=== PATIENT | male | born 1940 | race Caucasian/White ===

== ENCOUNTER 2020-09-18 13:18 | Emergency (ER) | payer MEDICARE, OTHER ==
[~2020-09-18] VITALS: Ht 180.3 cm; Wt 100.0 kg
[2020-09-18 13:23] VITALS: BP 150/82; TEMP 97.4
[2020-09-18] MEDS ORDERED: ZYLOPRIM 100MG100 MG PO (14:13)
[2020-09-18] MEDS ORDERED: COREG 3.123.125 MG/T PO (14:13)
[2020-09-18] MEDS ORDERED: TEMOVATE0.05% TP (14:14)
[2020-09-18] MEDS ORDERED: ATROVENT I0.2 MG/1 M IH (14:14)
[2020-09-18] MEDS ORDERED: ONE-A-DAY ESSE1 EACH PO (14:14)
[2020-09-18] MEDS ORDERED: MIRALAX PA17 GM/Dose PO (14:15)
[2020-09-18] MEDS ORDERED: PERCOCET 325 MG1 TAB PO (14:15)
[2020-09-18] MEDS ORDERED: ZOLOFT 50MG50 MG PO (14:16)
[2020-09-18] MEDS ORDERED: FLOMAX 0.40.4 MG/CAP PO (14:16)
[2020-09-18] MEDS ORDERED: DESYREL 100MG100 MG PO (14:16)
[2020-09-18] MEDS ORDERED: PRAVACHOL 40MG40 MG PO (14:16)
[2020-09-18] MEDS ORDERED: MASON NATURAL2000 IU PO (14:17)
[2020-09-18 14:29] LABS: BASO % 0.4 % (0.0-2.0); EOS # 0.2 (0.0-0.7); EOS % 2.7 % (0-4.0); GRAN # 4.4 (1.4-6.5); HEMOGLOBIN 11.5 g/dl (13.5-18.0); LYMPH # 0.4 (1.2-3.4); LYMPH % 7.6 % (20.0-51.0); MEAN CELL VOLUME 98 fl (80.0-100.0); MEAN CORPUSCULAR HEMOGLOBIN 31 pg (27.0-31.0); MEAN CORPUSCULAR HGB CONC 32 g/dl (33.0-37.0); MEAN PLATELET VOLUME 11.3 fl (7.4-10.4); MONO # 0.5 (0.1-0.6); MONO % 9.1 % (1.7-9.3); PLATELET COUNT 150 K/mm3 (130-400); RED BLOOD COUNT 3.72 M/mm3 (4.20-5.60)
[2020-09-18 14:38] LABS: HEMATOCRIT 36.5 % (42.0-52.0)
[2020-09-18] MEDS ORDERED: DOXYCYCLINE 10100 MG PO (14:54)
[2020-09-18 15:11] VITALS: PULSE 75
== END 2020-09-18 15:11 | disposition home or self-care (01) ==
LOC: COL.ER 13:18
PROVIDERS: Family Medicine
DX: L03.116 Cellulitis of left lower limb (principal); Z88.0 Allergy status to penicillin; Z88.1 Allergy status to other antibiotic agents; W20.8XXA Other cause of strike by thrown, projected or falling object, initial encounter

== ENCOUNTER 2020-10-12 15:31 | Inpatient (IN) | payer MEDICARE ==
[~2020-10-12] VITALS: Ht 180.3 cm; Wt 99.8 kg
[~2020-10-12 15:31] MED LIST: ATROVENT I0.2 MG/1 M IH; COREG 3.123.125 MG/T PO; DESYREL 100MG100 MG PO; DOXYCYCLINE 10100 MG PO; FLOMAX 0.40.4 MG/CAP PO; MASON NATURAL2000 IU PO; MIRALAX PA17 GM/Dose PO; ONE-A-DAY ESSE1 EACH PO; PERCOCET 325 MG1 TAB PO; PRAVACHOL 40MG40 MG PO; TEMOVATE0.05% TP; ZOLOFT 50MG50 MG PO; ZYLOPRIM 100MG100 MG PO
[2020-10-12 15:48] LABS: BASO % 0.6 % (0.0-2.0); EOS # 0.1 (0.0-0.7); EOS % 1.5 % (0-4.0); GRAN # 4.4 (1.4-6.5); GRAN % 79.7 % (42.2-75.2); HEMATOCRIT 37.7 % (42.0-52.0); HEMOGLOBIN 12.1 g/dl (13.5-18.0); LYMPH # 0.6 (1.2-3.4); LYMPH % 10.5 % (20.0-51.0); MEAN CELL VOLUME 96 fl (80.0-100.0); MEAN CORPUSCULAR HEMOGLOBIN 31 pg (27.0-31.0); MEAN CORPUSCULAR HGB CONC 32 g/dl (33.0-37.0); MEAN PLATELET VOLUME 12.2 fl (7.4-10.4); MONO # 0.4 (0.1-0.6); MONO % 7.3 % (1.7-9.3); PLATELET COUNT 143 K/mm3 (130-400); RED BLOOD COUNT 3.91 M/mm3 (4.20-5.60); REDCELL DISTRIBUTION WIDTH-CV 17.4 % (11.5-14.5)
[2020-10-12 15:58] LABS: ALBUMIN 3.8 gm/dL (3.5-5.0); BILIRUBIN,TOTAL 1.4 mg/dL (0.0-1.0); CALCIUM 9.5 mg/dL (8.4-10.2); CREATININE, serum 1.86 (0.66-1.25); MAGNESIUM 2.2 mg/dL (1.6-2.3); TOTAL PROTEIN 7.3 gm/dL (6.4-8.2)
[2020-10-12 16:05] LABS: POTASSIUM 2.5 mmol/L (3.4-5.0)
[2020-10-12 16:10] LABS: TROPONIN-I 0.051 ng/mL (0.000-0.035)
[2020-10-12] MEDS ORDERED: COUMADIN 5MG5 MG/TAB PO (16:24)
[2020-10-12] MEDS ORDERED: DEMADEX100 MG PO (17:25)
[2020-10-12 17:34] LABS: INR 2.9 (0.8-3.0); PROTHROMBIN TIME 32.6 SECONDS (9.7-12.8)
[2020-10-12 18:02] VITALS: BP 126/73; PULSE 69; TEMP 97.3
--- NOTE | 2020-10-12 20:00 | NUR ---
PATIENT IS A&O. VSS. DENIES ANY CHEST PAIN OR SOA. PATIENT INDEPENDENT IN ROOM. NOTED IRREGULAR, PACED HEART RATE IN THE 60-70'S ON TELE. PATIENT HAS HX OF A-FIB AND TAKES COUMADIN. NO C/O N/V. ADA DIET TOLERATED WELL. PATIENT EAT/DRINK/VOIDING SUFFICENT AMOUNTS. LEFT WRIST IV TO INT. HEAD TO TOE ASSESSMENT COMPLETE. PM MEDS GIVEN. NO OTHER NEEDS AT THIS TIME.
--- NOTE | 2020-10-12 21:17 | NUR ---
Warfarin Initial Dosing Pharmacy Note Ordering Provider: Espinoza Meza MD Indication: Atrial fibrillation GOAL IRN: 2-3 HOME REGIMEN: WARFARIN 5MG DAILY (LAST DOSE PER [facility] ON 10/11 @1930) LABS: HGB:12.1 INR: 2.9 ALBUMIN WNL NO NEW DDI, PT ON HOME REGIMENS Recommendation: WILL RESTART PT'S HOME DOSING OF 5MG DAILY, PT RECEIVED ONE TIME DOSE FOR TONIGHT (10/12), THEREFORE WILL ORDER TO START REGIMEN ON EVENING OF 10/13. wILL MONITOR INR FOR NEED TO ADJUST DOSING REGIMEN. THANK YOU FOR THIS DOSING CONSULT!
--- NOTE | 2020-10-12 23:00 | NUR ---
report received from CINTHYA Lincoln
[2020-10-12 23:30] VITALS: BP 139/81; PULSE 70; TEMP 97.7
--- NOTE | 2020-10-12 23:30 | NUR ---
appears to be dozing, entered room and he arouses easily, heart rate strong and regular, lungs CTA, abdomen soft and non distended, bowel sounds present in all 4 quads, peripheral pulses present in 4 extremities, skin wwarm and dry, denies needs
--- NOTE | 2020-10-13 01:10 | NUR ---
appears to be sleeping
--- NOTE | 2020-10-13 02:22 | NUR ---
continues to appear to sleep, arouses when entered room
--- NOTE | 2020-10-13 02:40 | NUR ---
awake and assisted up to bathroom and then back to bed, states he is been up independently also to bathroom
[2020-10-13 03:52] VITALS: BP 136/75; PULSE 70; TEMP 97.7
--- NOTE | 2020-10-13 04:01 | NUR ---
c/o back pain, medicated with percocet 5mg
--- NOTE | 2020-10-13 04:50 | NUR ---
is trying to sleep, gien potassium in OJ and he will take in a while
[2020-10-13 07:12] LABS: INR 2.9 (0.8-3.0); PROTHROMBIN TIME 32.5 SECONDS (9.7-12.8)
[2020-10-13 07:17] LABS: BASO % 0.4 % (0.0-2.0); EOS # 0.1 (0.0-0.7); EOS % 2.6 % (0-4.0); GRAN # 3.6 (1.4-6.5); GRAN % 77.7 % (42.2-75.2); HEMOGLOBIN 10.7 g/dl (13.5-18.0); LYMPH # 0.5 (1.2-3.4); LYMPH % 11.1 % (20.0-51.0); MEAN CELL VOLUME 99 fl (80.0-100.0); MEAN CORPUSCULAR HEMOGLOBIN 31 pg (27.0-31.0); MEAN CORPUSCULAR HGB CONC 32 g/dl (33.0-37.0); MEAN PLATELET VOLUME 12.5 fl (7.4-10.4); MONO # 0.4 (0.1-0.6); PLATELET COUNT 113 K/mm3 (130-400); RED BLOOD COUNT 3.41 M/mm3 (4.20-5.60); REDCELL DISTRIBUTION WIDTH-CV 17.5 % (11.5-14.5)
[2020-10-13 07:22] LABS: CALCIUM 8.7 mg/dL (8.4-10.2); CREATININE, serum 1.87 (0.66-1.25); MAGNESIUM 2.2 mg/dL (1.6-2.3)
[2020-10-13 07:27] LABS: POTASSIUM 2.7 mmol/L (3.4-5.0)
[2020-10-13 07:32] LABS: HEMATOCRIT 33.6 % (42.0-52.0)
[2020-10-13 08:58] VITALS: BP 142/82; PULSE 69; TEMP 97.4
--- NOTE | 2020-10-13 11:00 | NUR ---
UNABLE TO INTERROGATE PACER DUE TO ISO UPDATE REQUIRED FOR THE IPAD. IPAD IS CURRENTLY UPLOADING THE IOS.
[2020-10-13 11:18] VITALS: BP 143/82; PULSE 70; TEMP 98
--- NOTE | 2020-10-13 14:33 | NUR ---
Director Of Digital Platforms met with patient to discuss discharge planning. Patient lives in [place] with his , Arlene (ph#[phone]) and his sister, Atiya. Patient advised he and his , Arlene moved from [facility] about a month ago and have been living with Atiya until they can find their own place. Patient sees Dr. Sol at [facility] and obtains medications at [facility]. Patient states he did fall behind on his payments to his insurance so he has been working with [employer] on a repayment plan. Patient has a CPAP, nebulizer, cane, and walker at home. Patient reports independence with ADLS and plans to return home upon discharge. Patient does not have Advance Directives and was interested in completing DPOA-HC. SW assisted patient with DPOA-HC form and patient chose to designate his , Arlene and sister, Atiya. Patient verbalized understanding of DPOA-HC and provided signature. COREY and Jelly drying unit felting machine operator provided witness signatures. COREY provided original and copies to patient, then placed a copy in patient's chart. Patient requested SW not call Arlene at this time, as she has just laid down for a nap. Patient states he will call SW once patient is awake and can take a call. SW will continue to follow.
[2020-10-13 15:36] LABS: HEMOGLOBIN 11.1 g/dl (13.5-18.0); MEAN CELL VOLUME 97 fl (80.0-100.0); MEAN CORPUSCULAR HEMOGLOBIN 31 pg (27.0-31.0); MEAN CORPUSCULAR HGB CONC 32 g/dl (33.0-37.0); PLATELET COUNT 119 K/mm3 (130-400); REDCELL DISTRIBUTION WIDTH-CV 17.4 % (11.5-14.5)
--- NOTE | 2020-10-13 15:40 | NUR ---
This RN in contact with ingot caster regarding procedure on 10/14. Informed that pt taking Coumadin with last dose on evening of 10/12. INR noted 2.[address] Lowery notified by this RN. Orders to hold Coumadin dose on 10/13 and redraw PT/INR at 0500 on 10/14. Orders read back and verified with physician.
[2020-10-13 15:42] LABS: INR 2.7 (0.8-3.0); PROTHROMBIN TIME 30.3 SECONDS (9.7-12.8)
[2020-10-13 15:45] LABS: PARTIAL THROMBOPLASTIN TIME 37.9 SECONDS (26.0-37.0)
[2020-10-13 15:47] LABS: CREATININE, serum 1.86 (0.66-1.25)
[2020-10-13 15:50] LABS: HEMATOCRIT 34.9 % (42.0-52.0)
[2020-10-13 16:28] VITALS: BP 126/72; PULSE 70; TEMP 98
[2020-10-13 19:58] VITALS: BP 122/83; PULSE 77; TEMP 98.5
--- NOTE | 2020-10-13 20:00 | NUR ---
Pt. sitting up in bed at this time. Pt. is A&OX3, assessment complete. INT to lt. wrist patent. Pt. reports pain to back at a 6. SOPHY Davis notified. Pt. denies further needs, call light within reach.
[2020-10-14] VITALS: BP 121/90; PULSE 58; TEMP 99.2
[2020-10-14 04:00] VITALS: BP 128/75; PULSE 69; TEMP 98.2
[2020-10-14 06:00] LABS: BASO % 0.4 % (0.0-2.0); EOS # 0.1 (0.0-0.7); GRAN # 4.6 (1.4-6.5); GRAN % 82.2 % (42.2-75.2); HEMOGLOBIN 10.9 g/dl (13.5-18.0); LYMPH # 0.5 (1.2-3.4); LYMPH % 8.3 % (20.0-51.0); MEAN CELL VOLUME 98 fl (80.0-100.0); MEAN CORPUSCULAR HEMOGLOBIN 31 pg (27.0-31.0); MEAN CORPUSCULAR HGB CONC 32 g/dl (33.0-37.0); MEAN PLATELET VOLUME 12.9 fl (7.4-10.4); MONO # 0.4 (0.1-0.6); MONO % 6.9 % (1.7-9.3); PLATELET COUNT 116 K/mm3 (130-400); RED BLOOD COUNT 3.48 M/mm3 (4.20-5.60); REDCELL DISTRIBUTION WIDTH-CV 17.6 % (11.5-14.5)
[2020-10-14 06:01] LABS: HEMATOCRIT 34.2 % (42.0-52.0)
[2020-10-14 06:10] LABS: INR 2.3 (0.8-3.0); PROTHROMBIN TIME 25.9 SECONDS (9.7-12.8)
[2020-10-14 06:12] LABS: CALCIUM 8.7 mg/dL (8.4-10.2); CREATININE, serum 1.77 (0.66-1.25); POTASSIUM 3.1 mmol/L (3.4-5.0)
[2020-10-14 07:44] VITALS: BP 137/71; PULSE 72; TEMP 98.5
[2020-10-14 11:52] VITALS: BP 121/73; PULSE 70; TEMP 98
[2020-10-14 15:44] VITALS: BP 132/70; PULSE 70; TEMP 98.8
--- NOTE | 2020-10-14 16:13 | NUR ---
Nailing Machine Operator Automatic contacted patient's , Arlene to review discharge plan. On phone call, Arlene stated to SW that she was lost and could not find her way back home. [place] could only see other houses. Arlene did not know what road she was on. SW advised Arlene to stay put for now until someone could come get her. SW attempted to call patient's sister, Atiya twice and left a message. SW met with patient to advise his was lost and patient voiced concern for Arlene and stated she has done this before. 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 Patient at one point uses the phrase "mentally retarded" to describe , but then retracts this statement. Patient attempted to contact Arlene and Atiya with no sucess. Patient advised patient works at [employer]. SW contacted the [facility] [employer] and was advised patient is not at work today. COREY then met with patient again and discussed putting in a welfare check. Patient is apprehensive about this but is agreeable as he states "we have to do something". SW contacted [facility] [employer] and requested a welfare check. SW was advised they would go by the home, but could not do a general search for her vehicle. After this, SW was approached by KOSTAS Jaime who advised patient got a hold of his and she was now at home. COREY followed up with patient who states Arlene is now at home with Atiya and is safe. Patient reports Atiya just had her phone off. COREY contacted [facility] and cancelled welfare check. COREY also updated Auto Electrical Technician and [employer]. COREY will continue to follow.
[2020-10-14 20:02] VITALS: BP 139/78; PULSE 70; TEMP 99.3
--- NOTE | 2020-10-14 21:00 | NUR ---
Pt. sitting up at bedside. Pt. is A&OX3, assessment complete. Pt. c/o difficulty urinating. Pt. bladder scanned. Bladder scan report of >450. SOPHY Davis notified. New order for foly cath placement. 16Fr. garcía catheter placed. Pt. tolerated well. 10mls applied to baloon. Clear yellow urine noted. Pt. reports relief. Pt. has an INT to lt. wrist patent. Pt. reports back pain at a 5 on pain scale, gave pain meds per orders. Pt. denies further needs.
[2020-10-15] VITALS (16 sets, daily range): BP systolic 120–137; BP diastolic 66–87; PULSE 69–80; TEMP 97.9–98.9
[2020-10-15 06:17] LABS: BASO % 0.3 % (0.0-2.0); EOS # 0.1 (0.0-0.7); EOS % 1.1 % (0-4.0); GRAN % 81.2 % (42.2-75.2); HEMOGLOBIN 10.4 g/dl (13.5-18.0); LYMPH # 0.5 (1.2-3.4); LYMPH % 8.7 % (20.0-51.0); MEAN CELL VOLUME 99 fl (80.0-100.0); MEAN CORPUSCULAR HEMOGLOBIN 31 pg (27.0-31.0); MEAN CORPUSCULAR HGB CONC 31 g/dl (33.0-37.0); MEAN PLATELET VOLUME 12.6 fl (7.4-10.4); MONO # 0.5 (0.1-0.6); MONO % 8.4 % (1.7-9.3); PLATELET COUNT 114 K/mm3 (130-400); RED BLOOD COUNT 3.37 M/mm3 (4.20-5.60); REDCELL DISTRIBUTION WIDTH-CV 17.2 % (11.5-14.5)
[2020-10-15 06:20] LABS: HEMATOCRIT 33.4 % (42.0-52.0)
[2020-10-15 06:29] LABS: INR 1.6 (0.8-3.0); PROTHROMBIN TIME 17.8 SECONDS (9.7-12.8)
[2020-10-15 06:34] LABS: CALCIUM 8.6 mg/dL (8.4-10.2); CREATININE, serum 1.81 (0.66-1.25); POTASSIUM 3.4 mmol/L (3.4-5.0)
--- NOTE | 2020-10-15 09:31 | NUR ---
Patient alert and oriented, answers questions appropriately. See assessment. Heart tones strong and even, pulses palpable. No c/o vertigo/syncope. VS WNL. NPO for heart cath this morning. Refuses IV K+, states it "sanders too much". Hospitalist notified. No c/o at this time.
--- NOTE | 2020-10-15 12:35 | NUR ---
Patient returned from heart cath, assessment unchanged except right radial puncture site with TLR band in place. Radial pulses palpable bilaterally. No c/o at this time.
--- NOTE | 2020-10-15 16:08 | NUR ---
Lunch Wagon Operator contacted Atiya, patient's sister and left another voicemail.
--- NOTE | 2020-10-15 19:38 | NUR ---
Susan notified about patietn urine retention. Orders obtained. Patient straight cathed. Relief after. Kanwal aware of bladder scan orders
--- NOTE | 2020-10-15 20:49 | NUR ---
PT IN BED WITH HOB ELEVATED, DENIES PAIN AT THIS TIME. PT HAS SOB, O2 ON AT 3L/NC AND O2 AT 94% TO 97%. WILL CALL DOCTOR FOR BREATHING TX. PT HAS NO FURTHER NEEDS AT THIS TIME, CALL LIGHT WITHIN REACH.
--- NOTE | 2020-10-16 01:48 | NUR ---
NOTIFIED ALEXANDER BECKETT IN REFERENCE TO PT'S REQUEST FOR ALBUTERAL NEBULIZER AND 500 MG OF PO TYLENOL PRN FOR PAIN.
[2020-10-16 02:46] VITALS: BP 124/75; PULSE 71; TEMP 97.8
--- NOTE | 2020-10-16 04:07 | NUR ---
BLADDER SCAN EVERY 4 HOURS: PT HAS BEEN BLADDER SCANNED EVERY FOUR HOURS SINCE HE WAS STRAIGHT CATH. AT 2300 THE PT HAD 273 ML IN HIS BLADDER, AND AT 0300 PT HAD 335. PT HAS BEEN VOIDING BUT BLADDER IS NOT FULLY EMPTYING. PT IS CONCERNED AND WANTS TO SPEAK WITH HIS DOCTOR TO GET IT TAKEN CARE OF. PT IS NOT FEELING ANY DISCOMFORT AT THIS TIME FOR THE URINE RETENTION.
[2020-10-16 06:16] LABS: BASO % 0.4 % (0.0-2.0); EOS # 0.1 (0.0-0.7); EOS % 1.9 % (0-4.0); GRAN # 4.2 (1.4-6.5); HEMOGLOBIN 10.5 g/dl (13.5-18.0); LYMPH # 0.6 (1.2-3.4); LYMPH % 10.8 % (20.0-51.0); MEAN CELL VOLUME 99 fl (80.0-100.0); MEAN CORPUSCULAR HEMOGLOBIN 31 pg (27.0-31.0); MEAN CORPUSCULAR HGB CONC 31 g/dl (33.0-37.0); MEAN PLATELET VOLUME 12.9 fl (7.4-10.4); MONO # 0.4 (0.1-0.6); MONO % 7.5 % (1.7-9.3); PLATELET COUNT 116 K/mm3 (130-400); RED BLOOD COUNT 3.41 M/mm3 (4.20-5.60); REDCELL DISTRIBUTION WIDTH-CV 17.3 % (11.5-14.5)
[2020-10-16 06:21] LABS: HEMATOCRIT 33.8 % (42.0-52.0)
[2020-10-16 06:36] LABS: CALCIUM 8.5 mg/dL (8.4-10.2); CREATININE, serum 1.94 (0.66-1.25); POTASSIUM 3.8 mmol/L (3.4-5.0)
[2020-10-16 07:34] VITALS: BP 135/72; PULSE 70; TEMP 98.1
[2020-10-16] MEDS ORDERED: ELIQUIS 5MG PO (08:50)
[2020-10-16] MEDS ORDERED: ASPIRIN 81M81 MG/TA2 PO (08:51)
[2020-10-16] MEDS ORDERED: DEMADEX 20MG20 M1 PO (09:07)
[2020-10-16] MEDS ORDERED: IPRATROPIUM BROM3 M1 IH (09:09)
--- NOTE | 2020-10-16 09:59 | NUR ---
AM MEDICATIONS GIVEN. SHIFT ASSESSMENT COMPELTE. RIGHT RADIAL SITE CD&I WITH BANDAID. BLE DRESSED WITH JONNY WRAP DRESSINGS PER WOUND CARE THIS MORNING. PATIENT REPORTING SOME SOB. RT CALLED AND BREATHING TREATMENT REQUESTED. PATIENT GIVEN TYLENOL FOR BACK PAIN. CALL LIGHT IN REACH. PATIENT DENIES ANY OTHER NEEDS AT THIS TIME.
[2020-10-16] MEDS ORDERED: OXYGEN NASAL.CANN (10:57)
[2020-10-16 11:39] VITALS: BP 142/88; PULSE 71; TEMP 97.9
--- NOTE | 2020-10-16 13:02 | NUR ---
PATIENT DENIES PAIN AT THIS TIME. PATIENT CALLED OUT TO THE DESK STATING HE HAS A BLOODY NOSE. PATIENT LEFT NARE RINSED WITH SALINE FLUSH PER PATIENT REQUEST. WILL CONTINUE TO MONITOR.
--- NOTE | 2020-10-16 16:12 | NUR ---
DISCHARGE INSTRUCTIONS REVIEWED WITH PATIENT. QUESTIONS SOUGHT AND ANSWERED. PATIENTS LEFT WRIST INT DISCONTINUED PER PENDING DISCHARGE. TIP INTACT. PATIENT TOLERATED WELL. AWAITING PATIENTS RIDE FOR DISCHARGE.
--- NOTE | 2020-10-16 16:15 | NUR ---
Hand Plug Shaper attended clinical rounds with the team and patient to discharge home today. Patient to have exercise oximetry and will likely need home oxygen set up. Patient states he had an oxygen concentrator at one time, but it's not here with him. Patient is unsure of the location and advised they have had some trouble with the moving company they hired to move their belongings. Patient had exercise oximetry and he will require 2-3 liters at discharge. COREY met with patient and he wanted to get set up with [facility] as he thought that's the DME company his previous physician in [place] had sent orders for his CPAP supplies. COREY contacted [facility] and faxed referral for oxygen. Melanie at [facility] advised they did not have patient in system but could get him set up with oxygen today. COREY met with patient as RN was reviewing discharge information. Patient states [employer] delivered his oxygen supplies to his home and his sister, Atiya was there to get things set up. Patient states Atiya is on her way and has a tank of oxygen to get patient home on. Patient states he has a follow up appointment with his primary care physician next week and states that his also has an appointment next week with the same physician. No additional needs at this time.
[2020-10-17] MEDS ORDERED: IPRATROPIUM BROM3 M1 IH (15:18)
== END 2020-10-16 16:21 | disposition home or self-care (01) | DRG 287 ==
LOC: COL.ER 15:31 → SURG 17:12
PROVIDERS: Emergency Medicine; Hospitalist; Internal Medicine Cardiovascular Disease; Physician Assistant; ADMIT Internal Medicine
PROC: 4A023N7 Measurement of Cardiac Sampling and Pressure, Left Heart, Percutaneous Approach (ICD-10-PCS; principal; 2020-10-15)
PROC: B2111ZZ Fluoroscopy of Multiple Coronary Arteries using Low Osmolar Contrast (ICD-10-PCS; 2020-10-15)
DX: I11.0 Hypertensive heart disease with heart failure (principal); N17.9 Acute kidney failure, unspecified; E87.3 Alkalosis; J96.11 Chronic respiratory failure with hypoxia; I50.33 Acute on chronic diastolic (congestive) heart failure; N18.9 Chronic kidney disease, unspecified; N40.1 Benign prostatic hyperplasia with lower urinary tract symptoms; J44.9 Chronic obstructive pulmonary disease, unspecified; R33.8 Other retention of urine; E11.22 Type 2 diabetes mellitus with diabetic chronic kidney disease; I87.8 Other specified disorders of veins; D69.6 Thrombocytopenia, unspecified; I48.91 Unspecified atrial fibrillation; I08.0 Rheumatic disorders of both mitral and aortic valves; M10.9 Gout, unspecified; F32.9 Major depressive disorder, single episode, unspecified; E87.6 Hypokalemia; E78.5 Hyperlipidemia, unspecified; R79.89 Other specified abnormal findings of blood chemistry; Z95.0 Presence of cardiac pacemaker; Z79.891 Long term (current) use of opiate analgesic; Z79.01 Long term (current) use of anticoagulants; Z96.652 Presence of left artificial knee joint; Z87.891 Personal history of nicotine dependence; Z88.0 Allergy status to penicillin
CPT/HCPCS: 99222-AI; 99232-AI; 99239; J1644; J1815; J1940; J2704; J3480; Q9967

== ENCOUNTER 2020-10-31 10:09 | Inpatient (IN) | payer MEDICARE ==
[2020-10-31] VITALS (259 sets, daily range): BP systolic 99–109; BP diastolic 66–75; PULSE 70; TEMP 97.5–98.2; O2SAT 78–100
[~2020-10-31] VITALS: Ht 175.3 cm; Wt 93.8 kg
[~2020-10-31 10:09] MED LIST changes: +ASPIRIN 81M81 MG/TA2 PO; +COUMADIN 5MG5 MG/TAB PO; +DEMADEX 20MG20 M1 PO; +DEMADEX100 MG PO; +ELIQUIS 5MG PO; +IPRATROPIUM BROM3 M1 IH; +OXYGEN NASAL.CANN
[2020-10-31 10:44] LABS: ARTERIAL BLD GAS O2 SATURATION 94.3 % (92-100); ARTERIAL BLD GAS TCO2 CT 14.9; ARTERIAL BLOOD GAS BASE EXCESS -8.6 (-2-2); ARTERIAL BLOOD GAS HCO3 14.2 meq/L (22-26); ARTERIAL BLOOD GAS PO2 69.5 mmHg (80-100); ARTERIAL BLOOD GAS pH 7.41 (7.35-7.45)
[2020-10-31 10:45] LABS: ARTERIAL BLOOD GAS PCO2 22.9 mmHg (35-45)
[2020-10-31 11:20] LABS: HEMOGLOBIN 11.5 g/dl (13.5-18.0); MEAN CELL VOLUME 96 fl (80.0-100.0); MEAN CORPUSCULAR HEMOGLOBIN 30 pg (27.0-31.0); MEAN CORPUSCULAR HGB CONC 32 g/dl (33.0-37.0); MEAN PLATELET VOLUME 12.5 fl (7.4-10.4); PLATELET COUNT 207 K/mm3 (130-400); RED BLOOD COUNT 3.81 M/mm3 (4.20-5.60); REDCELL DISTRIBUTION WIDTH-CV 16.8 % (11.5-14.5)
[2020-10-31 11:23] LABS: HEMATOCRIT 36.5 % (42.0-52.0)
[2020-10-31 11:33] LABS: PROTHROMBIN TIME 73.6 SECONDS (9.7-12.8)
[2020-10-31 11:34] LABS: INR 6.5 (0.8-3.0)
[2020-10-31 11:40] LABS: CALCIUM 8.4 mg/dL (8.4-10.2); CREATININE, serum 4.69 (0.66-1.25); POTASSIUM 5.4 mmol/L (3.4-5.0); TOTAL PROTEIN 6.7 gm/dL (6.4-8.2)
[2020-10-31 12:23] LABS: TROPONIN-I 0.288 ng/mL (0.000-0.035)
[2020-10-31 13:11] LABS: BAND 6 % (0-10); NEUTROPHILS 87 % (42.0-75.2)
[2020-10-31 13:12] LABS: ANISOCYTOSIS 1+; PLATELET ESTIMATE NORMAL (NORMAL)
[2020-10-31 13:13] LABS: HYPOCHROMIA 2+; LYMPHOCYTE 5 % (20.0-51.0)
[2020-10-31 13:16] LABS: OVALOCYTES 1+
[2020-10-31 16:38] LABS: ACETAMINOPHEN < 10 ug/mL (10-30); SALICYLATE < 1.0 mg/dL
[2020-10-31 16:39] LABS: COLLECTION METHOD CLEAN CATCH
[2020-10-31 16:50] LABS: MUCOUS Present /lpf; PH 5 (5-8); SQUAMOUS EPITHELIAL None Seen /hpf; URINE APPEARANCE Cloudy; URINE BACTERIA Rare /hpf; URINE BILIRUBIN Negative (NEGATIVE); URINE BLOOD 3+ (NEGATIVE); URINE COLOR Amber; URINE GLUCOSE Negative (NEGATIVE); URINE KETONE Negative (NEGATIVE); URINE LEUKOCYTE ESTERASE Negative (NEGATIVE); URINE NITRATE Negative (NEGATIVE); URINE PROTEIN(semi-quant) 2+ (NEGATIVE); URINE RBC >50 /hpf; URINE UROBILINOGEN Negative (NEGATIVE)
[2020-10-31 17:09] LABS: PARTIAL THROMBOPLASTIN TIME 37.1 SECONDS (26.0-37.0)
--- NOTE | 2020-10-31 17:33 | NUR ---
Dr. Vicente and Dr. Herrera notified of troponin level of 1.030. no new orders at this time.
--- NOTE | 2020-10-31 19:10 | NUR ---
Dr. Herrera at [facility] to see patient. Requested NS be started at 100ml/hr due to concentrated urine and low output. Risks were discussed at this time as BNP is elevated and according to Dr. Herrera pt has cardiac valve issues.
--- NOTE | 2020-10-31 20:28 | NUR ---
MD Chester notified for CINTHYA Schwartz Troponin critical
--- NOTE | 2020-10-31 20:30 | NUR ---
Patient resting in bed with eyes shut when nurse entered room. Awakened to speech. Patient slighly drowsy with slighly mumbled speech, however, answers orientation questions correctly. Denies any pain at this time and states breathing is doing "better". VS stable at this time. Assisted with sd-care and other comfort measures. Call light left within reach; will continue to monitor.
[2020-10-31 23:39] LABS: COLLECTION METHOD CLEAN CATCH
[2020-10-31 23:58] LABS: MUCOUS Present /lpf; PH 5 (5-8); SQUAMOUS EPITHELIAL None Seen /hpf; URINE APPEARANCE Turbid; URINE BACTERIA None Seen /hpf; URINE BILIRUBIN Negative (NEGATIVE); URINE BLOOD 3+ (NEGATIVE); URINE COLOR Amber; URINE GLUCOSE Negative (NEGATIVE); URINE KETONE Negative (NEGATIVE); URINE LEUKOCYTE ESTERASE Negative (NEGATIVE); URINE NITRATE Negative (NEGATIVE); URINE PROTEIN(semi-quant) 2+ (NEGATIVE); URINE RBC >50 /hpf; URINE UROBILINOGEN Negative (NEGATIVE)
[2020-11-01] VITALS (792 sets, daily range): BP systolic 102–139; BP diastolic 67–88; PULSE 70; TEMP 97–97.7; O2SAT 74–100
[2020-11-01 00:24] LABS: TRICYCLIC ANTIDEPRESS URINE NEGATIVE
--- NOTE | 2020-11-01 02:41 | NUR ---
Patient's called for an update. notified of patient's current condition. All quesions and concerns addressed. Passcode provided to spouse.
[2020-11-01 03:25] LABS: URINE PROTEIN:CREAT RATIO 2.14 (0.00-0.14)
[2020-11-01 05:42] LABS: HEMOGLOBIN 10.7 g/dl (13.5-18.0); MEAN CELL VOLUME 95 fl (80.0-100.0); MEAN CORPUSCULAR HEMOGLOBIN 32 pg (27.0-31.0); MEAN CORPUSCULAR HGB CONC 33 g/dl (33.0-37.0); MEAN PLATELET VOLUME 12.9 fl (7.4-10.4); PLATELET COUNT 168 K/mm3 (130-400); RED BLOOD COUNT 3.38 M/mm3 (4.20-5.60); REDCELL DISTRIBUTION WIDTH-CV 16.5 % (11.5-14.5)
[2020-11-01 05:48] LABS: HEMATOCRIT 32.2 % (42.0-52.0); INR 3.8 (0.8-3.0); PROTHROMBIN TIME 42.7 SECONDS (9.7-12.8)
[2020-11-01 05:51] LABS: ALBUMIN 2.7 gm/dL (3.5-5.0); BILIRUBIN,TOTAL 0.9 mg/dL (0.0-1.0); CALCIUM 7.9 mg/dL (8.4-10.2); CREATININE, serum 4.77 (0.66-1.25); MAGNESIUM 2.4 mg/dL (1.6-2.3); PHOSPHOROUS 5.3 mg/dL (2.5-4.5); POTASSIUM 5.2 mmol/L (3.4-5.0); TOTAL PROTEIN 6.1 gm/dL (6.4-8.2)
[2020-11-01 06:06] LABS: TROPONIN-I 0.658 ng/mL (0.000-0.035)
[2020-11-01 06:11] LABS: ANISOCYTOSIS 1+; LYMPHOCYTE 14 % (20.0-51.0); NEUTROPHILS 84 % (42.0-75.2); PLATELET ESTIMATE NORMAL (NORMAL)
--- NOTE | 2020-11-01 06:16 | NUR ---
Notified nurse from [facility] of INR of 3.8 this am. Will continue to monitor at this time.
--- NOTE | 2020-11-01 07:14 | NUR ---
Report given to CINTHYA Landeros. Patient care transfered.
--- NOTE | 2020-11-01 09:45 | NUR ---
NOTIFIED RADIOLOGY OF ECHO ORDER PLACED BY DR. ROBERTSON.
--- NOTE | 2020-11-01 18:23 | NUR ---
SPOKE WITH PT'S SON JOZEF ON PHONE. UPDATED ON PATIENT CONDITION. PT STATES OKAY TO ADD TO CONTACT LIST.
--- NOTE | 2020-11-01 20:30 | NUR ---
Assessment complete; patient sleepy but alert and oriented. In no obvious distress at time. VS stable. Assisted with a bed bath and helped patient to contact his family members. All concerns and questions addressed at this time.
[2020-11-02] VITALS (743 sets, daily range): BP systolic 106–115; BP diastolic 65–71; PULSE 70; TEMP 97.3–98.4; O2SAT 76–100
--- NOTE | 2020-11-02 05:00 | NUR ---
Assisted with repositioning and sd-care with 2nd nurse present. While assisting with care patient stated that he wanted to "tell us something". Patient was upset and stated that he had been watching a lot of [place] news and that they are saying that medications for covid are being held from patient's and he was "tired of it". Wanted to make sure to have all his medications so that he could get better. Discussed wiht patient that this is a complicated disease and that he was receiving all the medically approved treatments. Patient was accepting of this statement. Allowed staff to finish cares. Also, reporting that his nostrils were sore from the Air-vo and requested to be switched to a "mask" if possible. Placed on 15L oxymask. Stayed at bedside for approximately 10 min to ensure that he tolerated oxymask. O2 maintaing 92-94%. Will continue to monitor.
[2020-11-02 05:56] LABS: HEMOGLOBIN 11.1 g/dl (13.5-18.0); MEAN CELL VOLUME 94 fl (80.0-100.0); MEAN CORPUSCULAR HEMOGLOBIN 30 pg (27.0-31.0); MEAN CORPUSCULAR HGB CONC 32 g/dl (33.0-37.0); MEAN PLATELET VOLUME 12.7 fl (7.4-10.4); PLATELET COUNT 205 K/mm3 (130-400); RED BLOOD COUNT 3.65 M/mm3 (4.20-5.60); REDCELL DISTRIBUTION WIDTH-CV 16.4 % (11.5-14.5)
[2020-11-02 06:08] LABS: ALBUMIN 2.8 gm/dL (3.5-5.0); BILIRUBIN,TOTAL 0.9 mg/dL (0.0-1.0); CALCIUM 8.2 mg/dL (8.4-10.2); CREATININE, serum 5.13 (0.66-1.25); INR 2.1 (0.8-3.0); MAGNESIUM 2.6 mg/dL (1.6-2.3); POTASSIUM 5.4 mmol/L (3.4-5.0); PROTHROMBIN TIME 23.1 SECONDS (9.7-12.8); TOTAL PROTEIN 6.3 gm/dL (6.4-8.2)
[2020-11-02 06:10] LABS: HEMATOCRIT 34.4 % (42.0-52.0)
[2020-11-02 08:08] LABS: ANISOCYTOSIS 1+; BAND 4 % (0-10); NEUTROPHILS 88 % (42.0-75.2); PLATELET ESTIMATE NORMAL (NORMAL)
[2020-11-02 08:09] LABS: LYMPHOCYTE 4 % (20.0-51.0)
[2020-11-02 08:10] LABS: HYPOCHROMIA 1+
--- NOTE | 2020-11-02 11:22 | NUR ---
Plan to find SNF placement for additonal care. SW made contact with Arlene Bartholomew /SINDY about patients care. reports that her spouse has been sick for a while and she can not take care of him at home. reports that he is residing locally with her and his sister/alt.DPCHATO Atiya De Oliveira . reports that his sister is in the home with Covid and tested positive. reports that she is getting test tomorrow. indicated that the patient will need additional care support. reports the patient uses a walker for mobility and has oxygen at home at 2 liters. Patient has pacemaker and is scheduled for open heart surgery. PCP is reported as Rosario Sol with the last appointment was Oct 20. did not indicated pharmacy and was not feeling well. reports that she is okay with placement locally or surrounding area at this time, she supports plan to support spouse. Action: SW sent referrals to [facility], [facility], [facility], and [facility]. Awaiting response. Will continue to support DC plan.
--- NOTE | 2020-11-02 19:30 | NUR ---
Received report from CINTHYA Landeros. All medications verified and all questions answered. Patient eating supper in room. On contact/droplet precautions d/t positive covid status. VS WNL. On airvo 60L at 60%. Will resume care at this time.
--- NOTE | 2020-11-02 19:37 | NUR ---
REPORT GIVEN TO CINTHYA PAYNE.
[2020-11-03] VITALS (682 sets, daily range): BP systolic 101–118; BP diastolic 70–81; PULSE 70–76; TEMP 97.2–97.4; O2SAT 84–99
[2020-11-03 09:14] LABS: HEMOGLOBIN 10.1 g/dl (13.5-18.0); MEAN CELL VOLUME 93 fl (80.0-100.0); MEAN CORPUSCULAR HEMOGLOBIN 31 pg (27.0-31.0); MEAN CORPUSCULAR HGB CONC 33 g/dl (33.0-37.0); MEAN PLATELET VOLUME 12.6 fl (7.4-10.4); PLATELET COUNT 183 K/mm3 (130-400); REDCELL DISTRIBUTION WIDTH-CV 16.3 % (11.5-14.5)
[2020-11-03 09:18] LABS: HEMATOCRIT 30.7 % (42.0-52.0)
[2020-11-03 09:20] LABS: INR 1.6 (0.8-3.0); PROTHROMBIN TIME 18.1 SECONDS (9.7-12.8)
[2020-11-03 09:27] LABS: ALBUMIN 2.6 gm/dL (3.5-5.0); BILIRUBIN,TOTAL 0.6 mg/dL (0.0-1.0); CALCIUM 8.1 mg/dL (8.4-10.2); CREATININE, serum 4.48 (0.66-1.25); POTASSIUM 5.2 mmol/L (3.4-5.0); TOTAL PROTEIN 5.9 gm/dL (6.4-8.2)
[2020-11-03 09:40] LABS: NEUTROPHILS 100 % (42.0-75.2); PLATELET ESTIMATE NORMAL (NORMAL)
--- NOTE | 2020-11-03 11:45 | NUR ---
Dialysis nurse at bedside.
--- NOTE | 2020-11-03 14:30 | NUR ---
Report received from dialysis nurse. Plan to do dialysis again tomorrow per verbal notification from nurse.
--- NOTE | 2020-11-03 14:50 | NUR ---
Provided update to Allan, son, who was able to provide pt ID code. Questions answered, verbally reported to son that this nurse was unable to report pt over all status, refered to the physician for that for better answer, although reported that VSS at this time as well as pt being A&O and movement individually as improved.
[2020-11-03 17:27] LABS: HEPATITIS B SURFACE ANTIBODY 29.4 (()); HIV 1 and 2 ANTIBODY SCRN-SO Negative (Negative)
--- NOTE | 2020-11-03 19:51 | NUR ---
Received report from CINTHYA Abdullahi. All medications verified and all questions answered. Patient resting in bed watching TV. VS WNL. Patient on airvo at 50L on 50%. Will resume care a this time.
[2020-11-04] VITALS (691 sets, daily range): BP systolic 118–133; BP diastolic 78–96; PULSE 70–75; TEMP 97–97.8; O2SAT 83–100
[2020-11-04 00:27] LABS: HEPATITIS B CORE AB,TOTAL Positive (())
[2020-11-04 02:00] LABS: HEPATITIS AB (HAV) IGG INDEX 2.48 Index (<=1.00)
--- NOTE | 2020-11-04 12:10 | NUR ---
SW update: Sent fax updates to [facility], [facility], [facility], [facility], and [facility]
[2020-11-04 12:23] LABS: HEMOGLOBIN 10.5 g/dl (13.5-18.0); MEAN CELL VOLUME 95 fl (80.0-100.0); MEAN CORPUSCULAR HEMOGLOBIN 30 pg (27.0-31.0); MEAN CORPUSCULAR HGB CONC 32 g/dl (33.0-37.0); MEAN PLATELET VOLUME 12.1 fl (7.4-10.4); PLATELET COUNT 105 K/mm3 (130-400); RED BLOOD COUNT 3.45 M/mm3 (4.20-5.60); REDCELL DISTRIBUTION WIDTH-CV 16.2 % (11.5-14.5)
[2020-11-04 12:31] LABS: HEMATOCRIT 32.6 % (42.0-52.0)
[2020-11-04 12:41] LABS: CALCIUM 8.5 mg/dL (8.4-10.2); CREATININE, serum 3.5 (0.66-1.25); POTASSIUM 4.7 mmol/L (3.4-5.0)
[2020-11-04 12:42] LABS: BAND 15 % (0-10); EOSINOPHIL 1 % (0-4); LYMPHOCYTE 2 % (20.0-51.0); NEUTROPHILS 79 % (42.0-75.2); PLATELET ESTIMATE DECREASED (NORMAL)
--- NOTE | 2020-11-04 13:46 | NUR ---
SW update: [facility] decline but will follow, can not accept while covid+ and on 15 lts of oxygen. Confirmed insurance, will have copay after 21 days at 186.00 per day. Continue to send updates as things change.
--- NOTE | 2020-11-04 15:31 | NUR ---
SW update Spoke with Jana, will follow care.
--- NOTE | 2020-11-04 19:56 | NUR ---
Received report from CINTHYA Solis. All medications verified and all questions answered. Patient resting in bed watching TV, VS WNL. Will resume care at this time.
--- NOTE | 2020-11-04 21:30 | NUR ---
Nurse assessed Right femoral central line dressing. Dressing was saturated with dark red blood and was no longer adhering to patients skin. Nurse removed previous dressing and noted several large clots and scant amount of leaking around the insertion site. Nurse held pressure for 2 minutes then replaced central line dressing via sterile dressing change. Will continue to monitor for further complications
[2020-11-05] VITALS (466 sets, daily range): BP systolic 100–128; BP diastolic 47–88; PULSE 70–108; TEMP 96.3–99.9; O2SAT 74–98
[2020-11-05 05:44] LABS: HEMOGLOBIN 10.1 g/dl (13.5-18.0); MEAN CELL VOLUME 95 fl (80.0-100.0); MEAN CORPUSCULAR HEMOGLOBIN 31 pg (27.0-31.0); MEAN CORPUSCULAR HGB CONC 32 g/dl (33.0-37.0); PLATELET COUNT 62 K/mm3 (130-400); RED BLOOD COUNT 3.29 M/mm3 (4.20-5.60); REDCELL DISTRIBUTION WIDTH-CV 16.6 % (11.5-14.5)
[2020-11-05 05:48] LABS: HEMATOCRIT 31.2 % (42.0-52.0)
[2020-11-05 05:49] LABS: CALCIUM 8.4 mg/dL (8.4-10.2); CREATININE, serum 2.43 (0.66-1.25); POTASSIUM 4.2 mmol/L (3.4-5.0)
[2020-11-05 06:17] LABS: BAND 2 % (0-10); LYMPHOCYTE 6 % (20.0-51.0); NEUTROPHILS 91 % (42.0-75.2)
[2020-11-05 06:18] LABS: ANISOCYTOSIS 1+; HYPOCHROMIA 1+; PLATELET ESTIMATE DECREASED (NORMAL)
[2020-11-05 06:20] LABS: OVALOCYTES 1+
--- NOTE | 2020-11-05 13:28 | NUR ---
The patient is down to 3 liters of oxygen, via high flow cannula. The patient is to tentatively transfer up to the medical floor today. COREY notified and faxed updates to [facility] and [facility]. COREY notified Ashley at [facility]. Ashley reports that they have tentatively accepted the patient and that they should have a bed available this weekend. Ashley requests updates on the patient tomorrow. COREY attempted to contact Esther at [facility] to update. COREY left her a voicemail. COREY contacted and updated the patient's , Arlene. Arlene is agreeable to the above plan. She states that she has COVID right now and is not feeling the greatest. SW to continue to follow.
--- NOTE | 2020-11-05 13:44 | NUR ---
Report given to CINTHYA Ramachandran.
--- NOTE | 2020-11-05 14:15 | NUR ---
PT taken to medical via wheelchair. PT up to bed with gait belt and assistance of two RNs. Care assumed by CINTHYA Ramachandran.
--- NOTE | 2020-11-05 14:45 | NUR ---
PT ARRIVED TO FLOOR, HAD BM USING BEDSIDE COMMODE, TOVA CARE PROVIDED, PT AOX4, PT REPORTED NO NEEDS AT THIS TIME, PT SETTLED IN BED ON OXYGEN, NO OTHER NEEDS AT THIS TIME.
--- NOTE | 2020-11-05 16:30 | NUR ---
ANGELIQUE MENDES REPORTED FEMORAL LINE BLEEDING AND THAT SHE CHANGED DRESSING. FEMORAL SITE ASSESSED AND IT DOES NOT HAVE ACTIVE BLEEDING, SOME DRIED BLOOD AT SITE, PT REQUESTED ICE WATER WHICH WAS BROUGHT IN, PENG PATENT, PT DENIES ANY OTHER NEEDS AND DENIES PAIN, NO OTHER NEEDS.
--- NOTE | 2020-11-05 17:11 | NUR ---
PT NAPPING IN ROOM, REQUIRES 4 UNITS OF INSULIN AT DINNER, PT STILL ON 5L O2, PT GINETTE CARY INTACT AND PATENT, PT HAD BM TODAY, FIRST BM IN 5 DAYS. PT TAKES PILLS WITH WATER. HAD DIALYSIS TODAY, DIALYSIS PLANNED FOR TUESDAY, PT AOX4, NO OTHER NEEDS AT THIS TIME.
--- NOTE | 2020-11-05 20:50 | NUR ---
Resting in bed. Assessment complete. Lungs clear. Patient on 6 liters of oxygen. Heart sounds normal. bowels active x4. Pulses present throughout. Patient has bilateral lower extremity edema +2. Trunk edema +1. Skin tears present on bilateral forearms on with dressing intact. Discolorations present to bilateral lower extremities. Right wrist INT flushed without complications. Martínez to dependent drainage with dark yellow urine. Right IJ dialysis cath in place. Patient found without nasal cannula on. Report nasal cannula causing discomfort. Changed to oxymask. Denies other needs at this time. Call light in reach.
--- NOTE | 2020-11-05 22:20 | NUR ---
Patient son provided with updated. Denies other questions.
--- NOTE | 2020-11-06 00:19 | NUR ---
Resting in bed. Denies needs. Call light in reach.
[2020-11-06 03:30] VITALS: BP 122/52; PULSE 70; TEMP 65.2; TEMP 98.2
[2020-11-06 06:28] LABS: HEMOGLOBIN 10.2 g/dl (13.5-18.0); MEAN CELL VOLUME 96 fl (80.0-100.0); MEAN CORPUSCULAR HEMOGLOBIN 31 pg (27.0-31.0); MEAN CORPUSCULAR HGB CONC 32 g/dl (33.0-37.0); PLATELET COUNT 57 K/mm3 (130-400); REDCELL DISTRIBUTION WIDTH-CV 16.9 % (11.5-14.5)
[2020-11-06 06:30] LABS: HEMATOCRIT 31.8 % (42.0-52.0)
--- NOTE | 2020-11-06 06:31 | NUR ---
Patient had uneventful night. Resting in bed this AM. Call light in reach.
[2020-11-06 06:32] LABS: CALCIUM 8.2 mg/dL (8.4-10.2); CREATININE, serum 1.71 (0.66-1.25); POTASSIUM 4.1 mmol/L (3.4-5.0)
--- NOTE | 2020-11-06 06:50 | NUR ---
RECIEVED REPORT FROM CINTHYA MCKEE. PT HAD OXYGEN MASK OFF, ASKED HIM TO PUT IT BACK ON AND PT DID.
--- NOTE | 2020-11-06 07:08 | NUR ---
Report given to CINTHYA Ramachandran
[2020-11-06 07:38] LABS: BAND 4 % (0-10); LYMPHOCYTE 3 % (20.0-51.0); METAMYELOCYTE 2 % (0-0); NEUTROPHILS 91 % (42.0-75.2); OVALOCYTES 1+; PLATELET ESTIMATE DECREASED (NORMAL)
[2020-11-06 08:36] VITALS: BP 98/58; PULSE 70; TEMP 98.4
--- NOTE | 2020-11-06 08:40 | NUR ---
PT DROWSY, DIDN'T WANT TO WAKE UP FOR VITALS, VITALS TAKEN, PT DID WAKE UP FOR PILLS AND BREAKFAST TRAY BUT DID NOT WANT TO EAT. PT AOX4, MEDICATIONS GIVEN, FRESH ICE WATER BROUGHT IN FOR PT. PT REPORTS BEING SLEEPING, OXYMASK ON PT TURNED UP TO 5L. NO OTHER NEEDS.
[2020-11-06 11:16] VITALS: BP 110/75; PULSE 70; TEMP 96.7
--- NOTE | 2020-11-06 14:14 | NUR ---
PT IN ROOM SLEEPING WITH OXYMASK ON
--- NOTE | 2020-11-06 14:23 | NUR ---
Etl Architect faxed clinical updates to [facility] Lexis Patel at [facility] advised that they are able to accept COVID positive patients at this time. SW will continue to follow.
--- NOTE | 2020-11-06 16:18 | NUR ---
JADIEL MENDES DISCOVERED FEMORAL LINE OOZING BLOOD THROUGH SHEETS AND GOWN WHEN GOING IN TO HELP PT CLEAN UP SPILLED PUDDING. CALLED DR. REA TO INFORM OF LEAKING FEMORAL LINE.
--- NOTE | 2020-11-06 16:52 | NUR ---
DR. REA CALLED BACK AND INFORMED IT WAS ULTIMATELY HOSPITALIST DECISION LONG IT WAS NOT THE DIALYSIS LINE. HOSP CALLED AND SAID TO HOLD PRESSURE 20-30 MIN, IF THAT WOULD NOT CONTROL BLEED THEN WE COULD TAKE THE LINE OUT AND PLACE A FEMSTOP ON IT. NO OTHER NEEDS. AT THIS TIME.
[2020-11-06 17:06] VITALS: BP 122/71; PULSE 70; TEMP 97.6
--- NOTE | 2020-11-06 18:48 | NUR ---
PRESSURE HELD ON FEMORAL LINE FOR 45 MIN, LINE STILL OOZING. MARIA LUZ NOTIFIED OF INABILITY TO USE FEMSTOP ON FLOOR AND NEED FOR REMOVAL OF LINE. REMOVED FEM LINE AND HELD PRESSURE FOR 30MINUTES. BLEEDING HAS STOPPED, FEM SITE DRESSED WITH GAUZE AND TEGADERM. PT HAS HAD LITTLE APPETITE DURING DAY, EATING JELLO AND YOGURT, REFUSING MEALS, VERY LITTLE INPUT.
[2020-11-06 20:11] VITALS: BP 124/78; PULSE 73; TEMP 98.2
--- NOTE | 2020-11-06 20:26 | NUR ---
Resting in bed. Assessment complete. Lungs diminished throughout. Heart murmur heard. Bowels active x4. Pulses present throughout. Bilateral lower extremity edema +1 with bilateral lower extremity discoloration. Bilateral forearm skin tears present. dressings on. patient has dialysis cath in place. CDI. Right femoral previous TLC site CDI at this time. INT to right wrist flushed without complications. Denies pain. Provided with warm blanket. Spoke with Susan BECKETT regarding patient right femoral site oozing for previous shift and pressure being held for approx an hour per report. Per Susan lovell to hold eliquis, also hold ASA. Will continue to monitor site.
--- NOTE | 2020-11-06 22:01 | NUR ---
Right femoral site CDI. Denies needs at this time.
[2020-11-06 22:45] LABS: HEMATOCRIT 31.2 % (42.0-52.0); HEMOGLOBIN 9.9 g/dl (13.5-18.0)
[2020-11-07] VITALS (7 sets, daily range): BP systolic 99–135; BP diastolic 60–73; PULSE 70–78; TEMP 97.7–98.8
--- NOTE | 2020-11-07 00:14 | NUR ---
Right femoral site CDI. Denies needs. Call light in reach.
--- NOTE | 2020-11-07 00:50 | NUR ---
Per WOMENS HEALTH NURSE PRACTITIONER patient 87% on 3 liters. Patient reported congestion. Changed to oxymask. 89% on 4 liters. Increased to 5 liters now 93%. Will monitor.
--- NOTE | 2020-11-07 02:34 | NUR ---
Up to restroom and returned to bed. Right femoral site CDI
--- NOTE | 2020-11-07 04:16 | NUR ---
Resting in bed. Denies needs. Call light in reach.
--- NOTE | 2020-11-07 06:11 | NUR ---
Patient continues on 5 liters via oxymask. Tolerating well. x2 BM throughout night. Right femoral site remained CDI throughout night. Resting in bed this AM. Call light in reach.
--- NOTE | 2020-11-07 07:00 | NUR ---
Report received from CINTHYA Quintanilla.
--- NOTE | 2020-11-07 07:38 | NUR ---
Report given to CINTHYA Kee
--- NOTE | 2020-11-07 07:54 | NUR ---
Report received from Jose L Quintanilla. Assisted Socorro MENDES and Francie RT to bring pt down to CT via w/c with bipap. Pt tolerated well but did get very SOB when transferring from WC to CT bed, RRR increased to 50 at one point. Pt able to transfer standby and get back to bed well afterwards. Per RT able to titrate down on bipap after settling back into bed and is doing well. Will continue to monitor.
--- NOTE | 2020-11-07 08:00 | NUR ---
Assessdivya castellanos. Pt in bed resting, has brusiing to arms bilaterally as well as skin tears. Pt has very dark shins, dependent deep reddish purple in color that pt states is chronic. Martínez draining marika yellow urine to DD in bag at side of bed. Pt c/o intermittent cramps to lower ABD from alck of BM for several days, will call for orders for assistance with this. Alert and oriented. 02 at 5L NC. Sacrem reddened but blanches well. Will continue to monitor.
[2020-11-07 08:11] LABS: HEMATOCRIT 33.4 % (42.0-52.0); HEMOGLOBIN 10.7 g/dl (13.5-18.0); MEAN CELL VOLUME 96 fl (80.0-100.0); MEAN CORPUSCULAR HEMOGLOBIN 31 pg (27.0-31.0); MEAN CORPUSCULAR HGB CONC 32 g/dl (33.0-37.0); PLATELET COUNT 75 K/mm3 (130-400); RED BLOOD COUNT 3.48 M/mm3 (4.20-5.60); REDCELL DISTRIBUTION WIDTH-CV 17.4 % (11.5-14.5)
[2020-11-07 08:47] LABS: CALCIUM 8.5 mg/dL (8.4-10.2); CREATININE, serum 1.89 (0.66-1.25); POTASSIUM 4.4 mmol/L (3.4-5.0)
[2020-11-07 09:40] LABS: ANISOCYTOSIS 2+; BAND 1 % (0-10); LYMPHOCYTE 2 % (20.0-51.0); NEUTROPHILS 97 % (42.0-75.2); OVALOCYTES 1+; PLATELET ESTIMATE DECREASED (NORMAL)
--- NOTE | 2020-11-07 16:22 | NUR ---
Assissted pt up to commode at bedside twice for a small and medium bowel movement, pt states his lower abd feels much better. Laying on side and wanting to rest, 02 saturations at 96% so titrated down to 2.5L OM, RT and Hospitalist Mita notified. Called SW regarding pt plan for discharge and updated them that his 02 needs have decreased greatly so he may not need LTAC. She called [facility] and was told they are accepting some COVID+ pts. Notified hospitalist of this. Will call [facility] in 2 hours per nursing orders after giving IV lasix. Bed bath given and pt feeling well, will continue to monitor until night shift manager and give report.
--- NOTE | 2020-11-07 16:39 | NUR ---
SW informed that patient was doing well. [facility] accepted even though positve Covid patient. SW will assist with sending updates when DC has been placed. SW will continue to follow.
--- NOTE | 2020-11-07 20:20 | NUR ---
Resting in bed. Assessment complete. Upper lobes clear. Bases bilaterally fine crackles and diminished. Heart murmur heard. Bowels active x4. Pulses present throughout. Bilateral lower ext edema +1. INT right wrist flushed without complications. Patient has bilateral forearm bruising with skin tears present-dressing in place. Bilateral lower ext discoloration-rubor with skin flaking. Right femoral site CDI. Dialysis cath site CDI. Denies pain. Denies needs at this time. Call light in reach.
--- NOTE | 2020-11-07 23:47 | NUR ---
Resting in bed. Denies needs. Call light in reach.
[2020-11-08] VITALS (11 sets, daily range): BP systolic 95–136; BP diastolic 45–73; PULSE 70–78; TEMP 97.4–98.6
--- NOTE | 2020-11-08 01:57 | NUR ---
Resting in bed asleep. Call light in reach.
--- NOTE | 2020-11-08 05:56 | NUR ---
Patient reported ABD pain this AM while laying on side. Relieved with BM and laying flat. Otherwise uneventful night. Resting in bed this AM. Call light in reach.
--- NOTE | 2020-11-08 06:55 | NUR ---
Report given to Jose L Kee
--- NOTE | 2020-11-08 07:01 | NUR ---
Report received from CINTHYA Quintanilla. Pt in bed resting will continue to monitor.
[2020-11-08 08:45] LABS: BASO % 0.2 % (0.0-2.0); EOS % 0.9 % (0-4.0); GRAN # 4.1 (1.4-6.5); GRAN % 87.5 % (42.2-75.2); LYMPH # 0.3 (1.2-3.4); LYMPH % 5.5 % (20.0-51.0); MEAN CELL VOLUME 97 fl (80.0-100.0); MEAN CORPUSCULAR HGB CONC 32 g/dl (33.0-37.0); MONO # 0.3 (0.1-0.6); MONO % 5.5 % (1.7-9.3); PLATELET COUNT 76 K/mm3 (130-400); RED BLOOD COUNT 2.86 M/mm3 (4.20-5.60); REDCELL DISTRIBUTION WIDTH-CV 17.1 % (11.5-14.5)
--- NOTE | 2020-11-08 08:45 | NUR ---
Assessment charted. PT doing well today. Up with therapy to chair, up to bathroomx2. back to bed, moving much better. Denies pain. Will continue to monitor.
[2020-11-08 08:56] LABS: HEMATOCRIT 27.6 % (42.0-52.0); HEMOGLOBIN 8.8 g/dl (13.5-18.0); MEAN CORPUSCULAR HEMOGLOBIN 31 pg (27.0-31.0)
[2020-11-08 09:01] LABS: CALCIUM 8.3 mg/dL (8.4-10.2); CREATININE, serum 1.87 (0.66-1.25); POTASSIUM 4.2 mmol/L (3.4-5.0)
--- NOTE | 2020-11-08 18:05 | NUR ---
Pt has done well today, remains on 2.5L NC. 1 U PRBCs started at this time. Pt educated on s/sx of a transfusion reaction. Verified with 2nd RN. Pt resting quietly in bed, denies needs. Will remain at bedside for rfirst 15 minutes and the increase rate appropriately. Will give bedside shift report to nightshift nurse who will resume care.
--- NOTE | 2020-11-09 01:55 | NUR ---
BLOOD TRANSFUSION COMPLETE AT 2135 ON 11/08/2020. NO ADVERSE REACTION NOTED OR REPORTED BY PATIENT.
[2020-11-09 03:25] VITALS: BP 130/51; PULSE 68; TEMP 97.5
--- NOTE | 2020-11-09 07:00 | NUR ---
Report received from CINTHYA Rodríguez. PT in bed resting, carlo bates, will continue to monitor.
[2020-11-09 08:04] VITALS: BP 90/60; PULSE 72; TEMP 98.2
--- NOTE | 2020-11-09 09:00 | NUR ---
Assessmetn charted. Pt doing well, up to eat, tolerating pureed better than mechanical soft. Denies pain. RIJ HD cath dressing needs to be changed by Nephrology but they are possibly pulling this line tomorrow. R Groin previous triple lumen CDI. RW INT is not flushing well, will notify dr calixto and ask if needing to replace. Will continue to monitor.
[2020-11-09 09:31] LABS: CALCIUM 8.6 mg/dL (8.4-10.2); CREATININE, serum 1.89 (0.66-1.25); POTASSIUM 4.1 mmol/L (3.4-5.0)
[2020-11-09 09:33] LABS: EOS % 0.2 % (0-4.0); GRAN # 5.3 (1.4-6.5); GRAN % 88.3 % (42.2-75.2); HEMOGLOBIN 10.5 g/dl (13.5-18.0); LYMPH # 0.3 (1.2-3.4); LYMPH % 4.8 % (20.0-51.0); MEAN CELL VOLUME 95 fl (80.0-100.0); MEAN CORPUSCULAR HEMOGLOBIN 30 pg (27.0-31.0); MEAN CORPUSCULAR HGB CONC 32 g/dl (33.0-37.0); MEAN PLATELET VOLUME 12.3 fl (7.4-10.4); MONO # 0.4 (0.1-0.6); MONO % 6.4 % (1.7-9.3); PLATELET COUNT 85 K/mm3 (130-400); REDCELL DISTRIBUTION WIDTH-CV 17.9 % (11.5-14.5)
[2020-11-09 09:39] LABS: HEMATOCRIT 33.3 % (42.0-52.0)
[2020-11-09 12:25] VITALS: BP 135/75; PULSE 71; TEMP 98.6
--- NOTE | 2020-11-09 14:19 | NUR ---
Called Dr. Reyes to address am hypoglycemia, he will look at it and make adjustments to the orders.
[2020-11-09 15:49] VITALS: BP 114/67; PULSE 70; TEMP 98.7
--- NOTE | 2020-11-09 18:13 | NUR ---
Pt resting in bed, bed bath given this evening, talked to who states she cannot care for pt at home, will pass on to day shift so social work can address in am. Pt denies needs, 24 urine collection in progress, will give bedside shift report to nightshift nurse who will resume care.
[2020-11-09 20:42] VITALS: BP 101/88; PULSE 69; TEMP 98.9
[2020-11-09 23:04] VITALS: BP 130/75; PULSE 70; TEMP 97.8
[2020-11-10] VITALS (7 sets, daily range): BP systolic 98–137; BP diastolic 41–70; PULSE 69–83; TEMP 97.5–99.1
[2020-11-10 07:01] LABS: BASO % 0.2 % (0.0-2.0); EOS % 0.6 % (0-4.0); GRAN # 4.4 (1.4-6.5); GRAN % 86.4 % (42.2-75.2); LYMPH # 0.3 (1.2-3.4); LYMPH % 5.8 % (20.0-51.0); MEAN CELL VOLUME 95 fl (80.0-100.0); MEAN CORPUSCULAR HEMOGLOBIN 30 pg (27.0-31.0); MEAN CORPUSCULAR HGB CONC 31 g/dl (33.0-37.0); MEAN PLATELET VOLUME 12.7 fl (7.4-10.4); MONO # 0.3 (0.1-0.6); MONO % 6.4 % (1.7-9.3); PLATELET COUNT 82 K/mm3 (130-400); RED BLOOD COUNT 3.37 M/mm3 (4.20-5.60); REDCELL DISTRIBUTION WIDTH-CV 17.3 % (11.5-14.5)
[2020-11-10 07:04] LABS: ALBUMIN 2.6 gm/dL (3.5-5.0); BILIRUBIN,TOTAL 1.4 mg/dL (0.0-1.0); CALCIUM 8.3 mg/dL (8.4-10.2); CREATININE, serum 1.71 (0.66-1.25); POTASSIUM 4.2 mmol/L (3.4-5.0); TOTAL PROTEIN 5.8 gm/dL (6.4-8.2)
[2020-11-10 07:10] LABS: HEMATOCRIT 32.1 % (42.0-52.0)
--- NOTE | 2020-11-10 09:10 | NUR ---
Pt awake and alert upon entry, has C/O pain 8-9/10, contacted provider for medication order. Shift assessments complete, left Pt call light in reach, bed in lowest position.
--- NOTE | 2020-11-10 13:56 | NUR ---
[employer] faxed clinical updates to [facility] and to [place] [facility]. COREY collaborated with Genny Tovarension [facility] Director as a consult was put in for patient. La advised they are able to accept and patient is agreeable. COREY will continue to follow.
[2020-11-10 20:15] LABS: CREATININE, serum 1.72 (0.66-1.25); URINE TOTAL VOLUME 800 mL
[2020-11-11 03:15] VITALS: BP 131/67; PULSE 73; TEMP 97.3
[2020-11-11 07:47] LABS: BASO % 0.2 % (0.0-2.0); EOS % 0.6 % (0-4.0); GRAN # 4.2 (1.4-6.5); GRAN % 85.7 % (42.2-75.2); LYMPH # 0.3 (1.2-3.4); LYMPH % 6.1 % (20.0-51.0); MEAN CELL VOLUME 97 fl (80.0-100.0); MEAN CORPUSCULAR HGB CONC 31 g/dl (33.0-37.0); MEAN PLATELET VOLUME 12.9 fl (7.4-10.4); MONO # 0.3 (0.1-0.6); PLATELET COUNT 104 K/mm3 (130-400); RED BLOOD COUNT 3.22 M/mm3 (4.20-5.60)
[2020-11-11 07:50] LABS: INR 1.4 (0.8-3.0); PROTHROMBIN TIME 15.6 SECONDS (9.7-12.8)
[2020-11-11 07:51] LABS: ALBUMIN 2.5 gm/dL (3.5-5.0); BILIRUBIN,TOTAL 1.4 mg/dL (0.0-1.0); CALCIUM 8.2 mg/dL (8.4-10.2); CREATININE, serum 1.75 (0.66-1.25); MAGNESIUM 2.2 mg/dL (1.6-2.3); POTASSIUM 4.4 mmol/L (3.4-5.0); TOTAL PROTEIN 5.6 gm/dL (6.4-8.2)
[2020-11-11 07:52] LABS: HEMATOCRIT 31.2 % (42.0-52.0); HEMOGLOBIN 9.8 g/dl (13.5-18.0); MEAN CORPUSCULAR HEMOGLOBIN 30 pg (27.0-31.0)
[2020-11-11 07:57] VITALS: BP 125/69; PULSE 71; TEMP 98.5
--- NOTE | 2020-11-11 08:45 | NUR ---
Pt awake and alert upon entry this morning, sitting in recliner. Pt has C/O pain in lower back. Shift assessments complete, left Pt call light in reach.
[2020-11-11] MEDS ORDERED: ELIQUIS 2.5 PO (11:33)
[2020-11-11] MEDS ORDERED: RT Albuterol HFA MDI IH ×2 (11:33)
[2020-11-11] MEDS ORDERED: SENOKOT S 50 MG1 TAB PO (11:36)
[2020-11-11] MEDS ORDERED: NOVOLOG 100U100 U/M1 SQ (11:37)
[2020-11-11 11:53] VITALS: BP 114/62; PULSE 70; TEMP 98.8
--- NOTE | 2020-11-11 15:56 | NUR ---
Pt transferred to [facility].
== END 2020-11-11 15:50 | DRG 177 ==
LOC: COL.ER 10:09 → ICU 12:49 → PEDS 11-05 15:18
PROVIDERS: Family Medicine; Internal Medicine; Internal Medicine Gastroenterology; Internal Medicine Nephrology; Nurse Practitioner Family; Physician Assistant; Student in an Organized Health Care Education/Training Program; ADMIT Hospitalist
PROC: 02HV33Z Insertion of Infusion Device into Superior Vena Cava, Percutaneous Approach (ICD-10-PCS; principal; 2020-11-03)
PROC: 5A1D70Z Performance of Urinary Filtration, Intermittent, Less than 6 Hours Per Day (ICD-10-PCS; 2020-11-04)
DX: U07.1 COVID-19 (principal); J96.21 Acute and chronic respiratory failure with hypoxia; I50.23 Acute on chronic systolic (congestive) heart failure; K72.00 Acute and subacute hepatic failure without coma; I21.A1 Myocardial infarction type 2; N17.9 Acute kidney failure, unspecified; D61.818 Other pancytopenia; I13.0 Hypertensive heart and chronic kidney disease with heart failure and stage 1 through stage 4 chronic kidney disease, or unspecified chronic kidney disease; E87.2 Acidosis; G93.49 Other encephalopathy; G72.81 Critical illness myopathy; E87.1 Hypo-osmolality and hyponatremia; D68.9 Coagulation defect, unspecified; R18.8 Other ascites; I95.9 Hypotension, unspecified; E87.5 Hyperkalemia; E11.22 Type 2 diabetes mellitus with diabetic chronic kidney disease; E27.8 Other specified disorders of adrenal gland; I35.0 Nonrheumatic aortic (valve) stenosis; I48.91 Unspecified atrial fibrillation; N18.32 Chronic kidney disease, stage 3b; F32.9 Major depressive disorder, single episode, unspecified; M10.9 Gout, unspecified; N40.0 Benign prostatic hyperplasia without lower urinary tract symptoms; D63.1 Anemia in chronic kidney disease; I27.20 Pulmonary hypertension, unspecified; J44.9 Chronic obstructive pulmonary disease, unspecified; K80.20 Calculus of gallbladder without cholecystitis without obstruction; Z79.01 Long term (current) use of anticoagulants; Z88.0 Allergy status to penicillin; Z88.1 Allergy status to other antibiotic agents; Z87.891 Personal history of nicotine dependence
CPT/HCPCS: 87522; 99223-AI; 99232-AI; 99233-AI; 99239; A4314; C9113; J0456; J0696; J1100; J1644; J1815; J1940; J2310; J2916; J2930; J3430; J7030; J7050; J7120; J8540; P9016; Q5105

== ENCOUNTER 2020-11-11 10:40 | Inpatient (IN) | payer MEDICARE, OTHER ==
[~2020-11-11] VITALS: Ht 180.3 cm; Wt 103.7 kg
[2020-11-11] MEDS ORDERED: RT Albuterol HFA MDI IH ×2 (11:33)
[2020-11-11] MEDS ORDERED: ELIQUIS 2.5 PO (11:33)
[2020-11-11] MEDS ORDERED: SENOKOT S 50 MG1 TAB PO (11:36)
[2020-11-11] MEDS ORDERED: NOVOLOG 100U100 U/M1 SQ (11:37)
--- NOTE | 2020-11-11 14:05 | NUR ---
Received report from Efe RN at [facility]. He will be DC'ing patient Martínez. He had it for a 24hour urine collection. Patient on a 1500 fluid restriction. On a pureed diet. Awaiting patient to arrive to [facility] Room 335.
[2020-11-11 18:06] VITALS: BP 112/53; PULSE 74; TEMP 97.4
--- NOTE | 2020-11-11 19:25 | NUR ---
Patient arrived to [facility] Room 335 and his initial was completed. This nurse worked on admission paper work and gave report to night nurse.
--- NOTE | 2020-11-11 23:09 | NUR ---
PATIENT RESTING IN BED. GOT UP TO USE BEDSIDE COMMODE. STEADY GAIT WITH WALKER AND GAIT BELT. REQUESTED A PAIN PILL. PERCOCET GIVEN PER ORDERS. PATIENT READY FOR BED. CALL LIGHT WITHIN REACH AND BED ALARM IS ON.
[2020-11-12 05:31] VITALS: BP 106/56; PULSE 70; TEMP 98.2
--- NOTE | 2020-11-12 13:29 | NUR ---
COREY met with the patient to complete intake, as the patient is new to [facility]. The patient lives in [place] with his , Arlene (ph#[phone]), and sister, Atiya De Oliveira (ph#[phone]). He reports independence with ADLs prior to hospitalization and has a FWW and home oxygen from [employer]. He states that he is normally on 2 liters. His also has a rolaider that he sometimes uses. The patient's PCP is Dr. Rosario Sol and he receives his medications from [facility]. He reports no difficulties obtaining his meds. The patient's DPOA-HC is in EMR and it designates his . The patient states that therapy has been going well so far and that it feels nice to get up and move. Team Conference was today. CORYE informed the patient on how the team plans to re-eval the patient next Tuesday. The patient was agreeable to the plan. Team Conference Notes were then completed. COREY contacted the patient's , Arleen, to review the I[facility] Team Conference Note and discuss the team's recommendation. Arlene was agreeable to the plan. She states that her and Atiya are also recovering from COVID and that the patient will need to be able to take complete care of himself when he is ready to discharge home. Arlene and Atiya are receiving home health services from [facility] right now for long-term. COREY to provide the [facility] Team Conference Note to the patient, when he returns from therapy.
[2020-11-12 16:59] VITALS: BP 133/80; PULSE 70; TEMP 97.9
[2020-11-12 18:30] LABS: COLLECTION METHOD CLEAN CATCH
[2020-11-12 18:47] LABS: MUCOUS Present /lpf; PH 5 (5-8); SQUAMOUS EPITHELIAL None Seen /hpf; URINE APPEARANCE Hazy; URINE BACTERIA None Seen /hpf; URINE BILIRUBIN Negative (NEGATIVE); URINE BLOOD 2+ (NEGATIVE); URINE COLOR Amber; URINE GLUCOSE Negative (NEGATIVE); URINE KETONE Negative (NEGATIVE); URINE LEUKOCYTE ESTERASE Negative (NEGATIVE); URINE NITRATE Negative (NEGATIVE); URINE PROTEIN(semi-quant) 2+ (NEGATIVE); URINE RBC 20-50 /hpf; URINE UROBILINOGEN Negative (NEGATIVE)
--- NOTE | 2020-11-12 20:17 | NUR ---
RECEIVED CHANGE OF SHIFT REPORT FROM DAY SHIFT NURSE.
--- NOTE | 2020-11-12 20:18 | NUR ---
Patient attended all therapies today. He was given prn pain meds for generalized pain and back pain to manage therapies. Patient tolerated diet well this shift. He signed all admission paperwork. His five page still needs to be completed at this time. This was communicated to night nurse. Patient denied any questions at this time.
--- NOTE | 2020-11-13 03:30 | NUR ---
PATIENT DENIES NEED FOR HOME MEDS TO BE SENT TO PHARMACY. REPORTS STILL HAS SOB WITH EXERTIONS. REPORTS HE AND HIS WILL STAY WITH HIS SISTER WHEN HE IS RELEASED FROM [facility].
[2020-11-13 05:31] VITALS: BP 102/43; PULSE 83; TEMP 98.5
[2020-11-13 05:39] VITALS: BP 132/71; PULSE 77; TEMP 97.9
--- NOTE | 2020-11-13 07:00 | NUR ---
PT RESTING IN BED AT BEDSIDE SHIFT REPORT. BED IN LOW, CALL LIGHT WITHIN REACH, BED ALARM ON.
--- NOTE | 2020-11-13 07:26 | NUR ---
CHANGE OF SHIFT REPORT GIVEN TO DAY SHIFT NURSETOMMIE. PATIENT RESTED QUIETLY DURING NIGHT WITH BED ALARM ON WHEN IN BED. OXYGEN CONTINUES PER NC, PATIENT O2 DEP AT HOME PER BASELINE.
[2020-11-13 16:53] VITALS: BP 120/71; PULSE 70; TEMP 98.8
--- NOTE | 2020-11-13 18:36 | NUR ---
PT RECEIEVED PRN PERCOCET TWICE THIS SHIFT FOR CHRONIC BACK PAIN, ALSO UTILIZED K-PAD TO LOWER BACK. PT'S TEETH WERE BROUGHT IN BY , DIET CHANGED TO ADA FOR SUPPER.
[2020-11-14 05:56] VITALS: BP 131/72; PULSE 71; TEMP 97.4
--- NOTE | 2020-11-14 06:41 | NUR ---
ASSISTED PT TO BR. PT HAD SMALL AMT URINARY LEAKAGE IN BRIEF. BACK TO BED. LT FOREARM SKIN TEAR WOUND CLEANED AND NEW VASELINE DRSG, TELFA, 4X4 AND COBAN APPLIED. WOUND BASE GRANULATING. SKIN FLAP FLIPPED ONTO SELF AND ABSORBING TO SOME DEGREE. PT WOULD LIKE DR TO LOOK AT IT AND EXCSIZE SKIN FLAP IF POSSIBLE. PT WANTED NURSE TO DO IT. NO ORDERS. SKIN FLAP IS RATHER LARGE. WOUND IS APPROXIMATELY 5-5 1/2CM LONG X 3.5CM WIDE. PARTIAL THICKNESS DERMIS OPEN. PT TOLERATED WELL. NOTED FLANK AND UPPER ARM EDEMA BILAT.
--- NOTE | 2020-11-14 13:44 | NUR ---
Admission QIM scores were reviewed by the team. Code of 5 chosen for eating was determined by team discussion to be the most usual performance for this patient during the assessment period. Code of 3 chosen for putting on/taking off footwear was determined by team discussion to be the most usual performance for this patient during the assessment period. Code of 4 chosen for rolling left to right was determined by team discussion to be the most usual performance for this patient during the assessment period. Code of 4 chosen for sit to lying was determined by team discussion to be the most usual performance for this patient during the assessment period. Code of 3 chosen for lying to sitting on side of bed was determined by team discussion to be the most usual performance for this patient during the assessment period. Code of 2 for sit to stand was determined by team discussion to be the most usual performance for this patient during the assessment period. Code of 2 for chair/bed to chair transfers was determined by team discussion to be the most usual performance for this patient during the assessment period.--La English, PD
--- NOTE | 2020-11-14 15:40 | NUR ---
DRSG TO LEFT UPPER EXTREMITIY SKIN TEAR CHANGED TODAY 11/14/20. SKIN FLAP IS CRUMPLED ON ITSELF. ATTEMPTED TO SMOOTH OUT AND LAY FLAT OVER WOUND, UNABLE TO. SITE CLEANSED, VASALINE PAD APPLIED, TELFA, GAUZE, AND COBAND. WOUND BED LOOKS TO BE GRANULATING NICELY.
[2020-11-14 17:42] VITALS: BP 112/67; PULSE 70; TEMP 98.6
--- NOTE | 2020-11-14 18:15 | NUR ---
PT REPORTS A 5/10 PAIN IS BASELINE FOR PT, REPORTING THIS PAIN LEVEL REGULARLY TODAY. RESTING IN BED WITH FEET ELEVATED.
--- NOTE | 2020-11-14 20:30 | NUR ---
ASSISTED PT TO BR WITH WALKER. EASILY UNBALANCED. PT HAS SOME DIFFICULTY GETTING STREAM STARTED. HX BPH.FLOMAX. BLE PERIPHERAL VASCULAR DISEASE-COLORATION NOTED. SCD'S ON. HEELS FLOATED. CALL LIGHT IN REACH. BED ALARM SET. PT WANTS ALARM OFF. EXPLAINED RATIONALEGREEABLE.
--- NOTE | 2020-11-15 04:13 | NUR ---
PT VOIDED APPROX 125CC ORANGE ALEKSANDRA SL HAZY. PT FEELS BLADDER FULNESS. BLADDER SCANNED INDICATED 479CC RESIDUAL AFTER VOID.
--- NOTE | 2020-11-15 04:17 | NUR ---
NOTIFIED DR BRAGA REGARDING 479CC RESIDUAL POST VOID PER BLADDER SCAN. SEE NEW ORDER.
--- NOTE | 2020-11-15 04:51 | NUR ---
PLACED #16FR EPNG FOR BLADDER RETENTION. IMMEDIATE RETURN OF 400CC ORNAGE AMBED SL HAZY URINE. PT FEELS RELIEF. CHANGED DRSG TO LT ARM LG SKIN TEAR. LOOSE SKIN CAME OFF WITH TELFA. WOUND BED STILL PINK. HAS SOME SEROUS SANG DRAINAGE ON OLD DRSG. PLACED XEROFORM, TELFA, 4X4 GAUZE AND JONNY WRAP TO LT ARM WOUND. CALL LIGHT IN REACH. BED ALARM SET. PT READY TO GET SOME REST.
[2020-11-15 05:37] VITALS: BP 120/77; PULSE 77; TEMP 97.9
--- NOTE | 2020-11-15 08:15 | NUR ---
Patient resting in bed following eating his breakfast. Patient reporting back pain and given prn pain meds. Will continue to monitor.
--- NOTE | 2020-11-15 10:19 | NUR ---
Patient was working with OT this morning when he went to the bathroom and when in there his catheter came out. Patient was cleaned up and placed in bed. This nurse then put in a new 20 G Coude Catheter using sterile technique. Patient tolerated well. Will continue to monitor.
[2020-11-15 16:34] VITALS: BP 114/63; PULSE 71; TEMP 98.3
--- NOTE | 2020-11-15 20:47 | NUR ---
PT RESTING IN BED. CHRONIC BACK PAIN NEVER BELOW LEVEL 5. 5 AT THIS TIME.
[2020-11-16 05:57] VITALS: BP 116/73; PULSE 73; TEMP 98.7
--- NOTE | 2020-11-16 10:11 | NUR ---
Dressing changed to patient left forearm. Observed pink granulated skin, cleaned area, patted dry with sterile 4x4s and applied non stick telpha over the area and secured with abril bandage. Patient tolerated well. Will continue to monitor.
[2020-11-16 15:08] VITALS: BP 109/69; PULSE 71; TEMP 97.8
--- NOTE | 2020-11-16 20:00 | NUR ---
PT RESTING IN BED. DSYPNEIC. O2 SAT 95%. OXYMASK AT 2L NOTED. INCREASED O2 5L HUMIDIFIED. PT FEELING BETTER. SEE MAR FOR PAIN MED GIVEN FOR CHRONIC BACK PAIN. CALL LIGHT IN REACH. BED ALARM SET.
--- NOTE | 2020-11-16 22:30 | NUR ---
PT C/O BAD DREAMS 3 NIGHTS IN A ROW. PT RELATES HE FEELS IT IS THE ZOLOFT. WANTS TO SPECK TO THE DR TOMORROW ABOUT BEING WEANSD OFF. PT DID NOT CORRELATE THIS WITH PAIN MED OR TRAZADONE. ASSURED PT DR WOULD BE INFORMED TOMORROW ABOUT THIS. CALL LIGHT IN REACH.
[2020-11-17 05:35] VITALS: BP 126/80; PULSE 70; TEMP 97.5
--- NOTE | 2020-11-17 07:05 | NUR ---
PT UP AND DRESSED, IN RECLINER EATING BREAKFAST AT BEDSIDE SHIFT REPORT.
[2020-11-17 07:22] LABS: BASO % 0.2 % (0.0-2.0); EOS # 0.1 (0.0-0.7); EOS % 1.9 % (0-4.0); GRAN # 3.5 (1.4-6.5); GRAN % 82.6 % (42.2-75.2); LYMPH # 0.4 (1.2-3.4); LYMPH % 9.2 % (20.0-51.0); MEAN CELL VOLUME 99 fl (80.0-100.0); MEAN CORPUSCULAR HGB CONC 31 g/dl (33.0-37.0); MEAN PLATELET VOLUME 11.9 fl (7.4-10.4); MONO # 0.2 (0.1-0.6); MONO % 5.6 % (1.7-9.3); PLATELET COUNT 106 K/mm3 (130-400); RED BLOOD COUNT 2.84 M/mm3 (4.20-5.60); REDCELL DISTRIBUTION WIDTH-CV 17.2 % (11.5-14.5)
[2020-11-17 07:24] LABS: HEMATOCRIT 28.2 % (42.0-52.0); HEMOGLOBIN 8.8 g/dl (13.5-18.0); MEAN CORPUSCULAR HEMOGLOBIN 31 pg (27.0-31.0)
[2020-11-17 07:25] LABS: CALCIUM 8.7 mg/dL (8.4-10.2); CREATININE, serum 2.15 (0.66-1.25); MAGNESIUM 2.2 mg/dL (1.6-2.3); POTASSIUM 5.4 mmol/L (3.4-5.0)
--- NOTE | 2020-11-17 10:03 | NUR ---
Initial visit; Patient thanked Ship'S Carpenter for looking in on him and keeping him in her prayers. [employer] offered God's blessings to the family.
--- NOTE | 2020-11-17 11:59 | NUR ---
THIS NURSE ATTEMPTED TO STICKS TO START IV UNSUCCESFULLY. CINTHYA BIRD WAS SUCCESSFUL FIRST ATTEMPT IN RW WITH 22G. STARTED FOR NS IV FLUIDS FOR DEHYDRATION.
--- NOTE | 2020-11-17 14:58 | NUR ---
DRSG CHANGED TO LEFT FOREARM SKIN TEAR. WOUND BED HEALING, EDGES PINK. VASALINE GAUZE, TELFA, 4X4, AND JONNY WRAP APPLIED.
--- NOTE | 2020-11-17 15:02 | NUR ---
SW met with the patient to follow up after the weekend. The patient states that he is okay and that therapy has been fine. SW discussed getting a patient/family conference call set up this Tuesday around 1345. The patient states that he will try and get ahold of his to see if this works. SW attempted to contact the patient's , Arlene, to discuss this. SW left her a voicemail.
[2020-11-17 15:44] VITALS: BP 118/71; PULSE 70; TEMP 98.5
--- NOTE | 2020-11-17 17:20 | NUR ---
IV STARTED IN RW TODAY FOR DEHYDRATION, 1,000 MLS NS RUNNING AT 60 ML/HR FOR ONE TIME DOSE. PT'S UPPER EXTREMETIES ARE BOTH SWOLLEN, LEFT 1+ AND RIGHT NONE PITTING. PT'S URINE IS DARK YELLOW CONCENTRATED CLEAR. PT REPORTS 5/10 BASELINE PAIN IN BACK AND RECEIVED PRN PERCOCET ONCE THIS SHIFT. DRSG TO SKIN TEAR ON LEFT FOREARM CHANGED, SEE PREVIOUS NOTE.
--- NOTE | 2020-11-17 19:03 | NUR ---
RECEIVED CHANGE OF SHIFT REPORT FROM DAY SHIFT NURSE.
--- NOTE | 2020-11-17 20:00 | NUR ---
IV INFUSING WITH NO PROBLEMS, DENIES ANY DISCOMFORT AT THIS TIME, RESTING WITH EYES CLOSED. REPORTS GETS TIRED EASILY TODAY. VELRO COMPRESSION WRAPS ON TO BLE. OXYGEN CONTINUES PER NC. PENG IN PLACE AND DRAINING DARK YELLOW URINE.
[2020-11-18 03:46] VITALS: BP 117/72; PULSE 68; TEMP 97.9
--- NOTE | 2020-11-18 06:54 | NUR ---
CHANGE OF SHIFT REPORT GIVEN TO DAY SHIFT NURSETOMMIE.
--- NOTE | 2020-11-18 06:58 | NUR ---
PT RESTING IN BED AT BEDSIDE SHIFT REPORT.
[2020-11-18 08:08] LABS: CALCIUM 8.3 mg/dL (8.4-10.2); CREATININE, serum 2.07 (0.66-1.25); POTASSIUM 5.3 mmol/L (3.4-5.0)
--- NOTE | 2020-11-18 08:59 | NUR ---
Companion Caregiver contacted patient's , Arlene to follow up on family meeting. Arlene was agreeable to have the meeting scheduled tomorrow at 1345 and will be available for a phone call at this time.
--- NOTE | 2020-11-18 09:52 | NUR ---
THIS NURSE CALLED SHENG WITH INFECTIOUS DISEASE TO GET THE OK TO CHANGE DRAINAGE BAG TO LEG BAG IN THE AMS AND BACK TO DRAINAGE BAG AT NIGHT. SHENG SAID TO THROW THE OLD DRAINAGE BAG AWAY AND START WITH NEW ONE TONIGHT.
[2020-11-18 16:05] VITALS: BP 123/73; PULSE 77; TEMP 98.8
--- NOTE | 2020-11-18 17:27 | NUR ---
PT CONTINUES TO RECEIEVE IV FLUIDS FOR DEHYDRATION. PT C/O / BASELINE BACK PAIN, RECEIEVED ONE PRN PERCOCET. SKIN TEAR TO LEFT FOREARM DRSG IS CDI SO THIS NURSE DID NOT CHANGE IT TODAY. PT CONTINUES TO ELEVATE UPPER EXTREMETIES AND LOWER TO HELP ELEVIATE EDEMA. UPPER EXTREMETIES ARE IMPORVED TODAY FROM YESTERDAY.
--- NOTE | 2020-11-18 19:46 | NUR ---
RECEIVED CHANGE OF SHIFT REPORT FROM DAY SHIFT NURSE. OBSERVED IV IN PLACE WITH SMALL AMOUNT OF RED/BLOOD ON IV DRSG IMMEDIATELY CIRCLING IV INSERTION SITE WITH NO LEAKING WITH IVF INFUSING. REPORT SOME SOA WITH EXERTION, AMB TO&FROM BATHROOM AND BACK TO BED. OXYGEN CONTINUES PER NC.
[2020-11-19 05:00] VITALS: BP 116/68; PULSE 70; TEMP 97.4
--- NOTE | 2020-11-19 09:20 | NUR ---
Given PRN pain med due to back pain. Ate 100% of breakfast today.
--- NOTE | 2020-11-19 09:45 | NUR ---
Removed tape to RFA to unhook IV for patient and when removing the tape, patient's skin is very thin and the skin tore. Cleansed area, applied 4 steri strips to skin tear and secured with mepilex. Will continue to monitor.
--- NOTE | 2020-11-19 10:45 | NUR ---
Patient with OT taking a shower at this time.
--- NOTE | 2020-11-19 12:30 | NUR ---
Patient's IV following his morning therapies came out of the vein and this nurse was not able to get it to work. Dr. Meza was told this and he ordered for patient's IV fluids to be stopped at this time. Patient was updated on this. Will continue to monitor.
--- NOTE | 2020-11-19 16:26 | NUR ---
COREY attended the patient/family conference call. The patient's (Arlene) and sister (Atiya) were on the call. Also present was IPR Director, PT, OT, and ST. IPR Director started by explaining the purpose of the meeting. PT/OT/ST then discussed the patient's progress so far. IPR Director informed the patient and family how a tentative d/c date has been set for next Tuesday, 11/26, with home health PT/OT. The patient and his family were agreeable to the plan. A home evaluation was set up for next Tuesday. The team answered all questions. COREY then met with the patient and presented and reviewed the IPR Team Conference Note. COREY provided him with [email or web address]'s list of home health agencies that serve [place]. The patient would like to look over and discuss it with his . SW to continue to follow.
[2020-11-19 17:40] VITALS: BP 125/72; PULSE 80; TEMP 97.8
--- NOTE | 2020-11-19 18:06 | NUR ---
Replaced stat lock for garcía catheter due to it causing iriation to inner left thigh. Will continue to monitor.
--- NOTE | 2020-11-19 20:00 | NUR ---
PT RESTING IN BED. O2 4L PER OXYMASK. NO RESP DISTRESS AT THIS TIME. LT ARM W/ JONNY WRAP - FOR SKIN TEAR .. REAPPLIED JONNY FOR COMFORT. SEE SKIN ASSESSMENT NOTES.
--- NOTE | 2020-11-20 01:17 | NUR ---
PARRISH ALICIA HERE TO SEE PT. WILL PLACE NEW ORDERS FOR ABT. FOR CELLULITIS LT ARM.
--- NOTE | 2020-11-20 01:30 | NUR ---
LAB HERE TO DRAW BLOOD CULTURE.
--- NOTE | 2020-11-20 01:55 | NUR ---
RED AREA TO LT F/A MARKED WITH PEN. DOXYCYCLINE STARTED AFTER BLOOD CULTURES.
[2020-11-20 05:43] VITALS: BP 125/66; PULSE 70; TEMP 98.5
[2020-11-20 07:30] LABS: BASO % 0.6 % (0.0-2.0); EOS # 0.1 (0.0-0.7); EOS % 2.6 % (0-4.0); GRAN # 2.7 (1.4-6.5); LYMPH # 0.4 (1.2-3.4); LYMPH % 10.5 % (20.0-51.0); MEAN CELL VOLUME 100 fl (80.0-100.0); MEAN CORPUSCULAR HGB CONC 31 g/dl (33.0-37.0); MONO # 0.2 (0.1-0.6); PLATELET COUNT 134 K/mm3 (130-400); RED BLOOD COUNT 2.69 M/mm3 (4.20-5.60); REDCELL DISTRIBUTION WIDTH-CV 18.2 % (11.5-14.5)
[2020-11-20 07:40] LABS: HEMATOCRIT 26.9 % (42.0-52.0); HEMOGLOBIN 8.2 g/dl (13.5-18.0); MEAN CORPUSCULAR HEMOGLOBIN 30 pg (27.0-31.0)
[2020-11-20 07:43] LABS: CALCIUM 8.6 mg/dL (8.4-10.2); CREATININE, serum 2.2 (0.66-1.25); MAGNESIUM 2.3 mg/dL (1.6-2.3); POTASSIUM 5.2 mmol/L (3.4-5.0)
--- NOTE | 2020-11-20 09:19 | NUR ---
Changed out regular catheter bag for a leg bag this morning. Patient tolerating well at this time. Patient having good out put. He is independent on his meals. He was a Mod assist with gait belt and walker when standing this morning. It took only one attempt with staff assistance to stand. Patient currently working with PT at this time. Will continue to monitor.
--- NOTE | 2020-11-20 11:13 | NUR ---
Dressing changed to left elbow. Wound bed is pink and moist with no bleeding observed. Vaseline gauze was applied to area, covered with non stick telpha pad and gauze 4x4 then secured with abril bandage. Right arm continues to have some cellulitis with the swelling noted to have increased, but redness has not. Area was marked with a marker to show the changes in size. This will be communicated to the provider. Patient currently working with OT at this time. Will conitinue to monitor.
--- NOTE | 2020-11-20 15:48 | NUR ---
Dr. Meza assessed patient today. See new orders in EMR. Will continue to monitor.
--- NOTE | 2020-11-20 15:49 | NUR ---
Was a touch assist with helping patient shave, due to his hair being so long. He would have been able to do it all, if it weren't for all the extra hair.
[2020-11-20 16:53] VITALS: BP 116/67; PULSE 70; TEMP 97.8
[2020-11-20 18:46] LABS: COLLECTION METHOD IN
[2020-11-20 18:59] LABS: MUCOUS Present /lpf; PH 5 (5-8); SQUAMOUS EPITHELIAL None Seen /hpf; URINE APPEARANCE Hazy; URINE BACTERIA None Seen /hpf; URINE BILIRUBIN Negative (NEGATIVE); URINE BLOOD 2+ (NEGATIVE); URINE COLOR Yellow; URINE GLUCOSE Negative (NEGATIVE); URINE KETONE Negative (NEGATIVE); URINE LEUKOCYTE ESTERASE Negative (NEGATIVE); URINE NITRATE Negative (NEGATIVE); URINE PROTEIN(semi-quant) 1+ (NEGATIVE); URINE RBC 20-50 /hpf; URINE UROBILINOGEN Negative (NEGATIVE)
[2020-11-20 19:15] LABS: URINE PROTEIN:CREAT RATIO 0.74 (0.00-0.14)
--- NOTE | 2020-11-20 21:00 | NUR ---
PT RESTING IN BED. FATIGUED TONIGHT. O2 PER OXYMASK 3L. NOSE IS DRY. LT ARM DRSG CDI. NO EXTENSION NOTED FROM CELLULITIS OF LT F/A. SL SWELLING. ENC TO ELEVATELT ARM ON PILLOW.CALLIGHT IN REACH.
[2020-11-21 05:13] VITALS: BP 119/75; PULSE 68; TEMP 97.5
--- NOTE | 2020-11-21 06:01 | NUR ---
PT C/O OF SORE THROAT. HAD BEEN PICKING NASAL CAVITY WITH FINGERS D/T DRYNESS. ENC NOT TO. ASSESSED THROAT- IS RED. REQUESTED THROAT LOZENGES. WILL PASS THIS ON TO DAYSHIFT NURSE. GAVE OXYCODONE FOR CHRONIC BACK PAIN AND SORE THROAT. PT WASHED FACE AND HANDS AND THEN TOOK CARE OF HIS OWN DENTURES WITH SET UP ONLY. PENG DRAINING ALEKSANDRA CLEAR URINE. NO OTHER NEEDS AT THIS TIME. CALL LIGHT IN REACH.
--- NOTE | 2020-11-21 06:56 | NUR ---
PT RESTING IN BED AT BEDSIDE SHIFT REPORT. LEG BAG FOR THERAPY IN PLACE, LEGS LOWERED IN THE BED BELOW LEVEL OF BLADDER.
--- NOTE | 2020-11-21 10:26 | NUR ---
Follow-up visit; Patient thanked Production Control Pegboard Clerk for looking in on him, visiting and offering God's blessings and to keep him in Production Control Pegboard Clerk's prayers.
--- NOTE | 2020-11-21 15:42 | NUR ---
DRSG TO LEFT FOREARM SKIN TEAR CHANGED. WOUND BED IS PINK, NO S/S OF INFECTION NOTED. VASELINE PAD TO WOUND BED, THE TELFA, GAUZE, AND JONNY WRAP AROUND. SKIN TEAR TO RIGHT FOREARM ASSESSED. MEPILEX REMOVED, SKIN TEAR IS INTACT, NO DRAINAGE. STERI STRIPS LEFT IN PLACE, NO MEPLIEX REPLACED. LEG BAG CHANGED TO DRAINAGE BAG, PT RESTING BACK IN BED AFTER THERAPY. HUB CAPS ALL SCRUBBED WITH ALCOHOL AND CONTAINED/SECURED WITH CAPS.
[2020-11-21 16:15] VITALS: BP 128/66; PULSE 70; TEMP 98.9
--- NOTE | 2020-11-21 18:21 | NUR ---
PT HAS C/O OF BASELINE PAIN IN BACK 03/16. REQUESTED THROAT LOZENGES FOR SORE THROAT, REPORTEDLY THE LAST 3 DAYS HE HAS BEEN REQUESTING AND HAS NOT GOTTEN THEM UNTIL TODAY.
--- NOTE | 2020-11-21 19:15 | NUR ---
RECEIVED CHANGE OF SHIFT REPORT FROM DAY SHIFT NURSE.
[2020-11-22 06:01] VITALS: BP 129/72; PULSE 71; TEMP 98.1
--- NOTE | 2020-11-22 07:21 | NUR ---
CHANGE OF SHIFT REPORT GIVEN TO DAY SHIFT NURSEGILLIAN.
--- NOTE | 2020-11-22 08:00 | NUR ---
Assessment completed, alert/oriented, vital signs stable, denies pain or disocmfort, heart RRR, lungs CTA/ diminished, denies any resp.difficulty at rest, on 4L.o2 via NC, garcía cath is patent with clear yellow urine, skin tears to left arm and right wrist/ some redness noted to surroinding tissue on left arm, morning meds given, he is sitting up in bed eating breakfast, denies needs
[2020-11-22 17:57] VITALS: BP 102/62; PULSE 70; TEMP 98.6
--- NOTE | 2020-11-23 02:00 | NUR ---
PT SLEEPING WITH EVEN, NON-LABORED RESP. BED ALARM REMAINS ON. CALL LIGHT IS WITHIN REACH FOR PT.
[2020-11-23 05:54] VITALS: BP 123/72; PULSE 71; TEMP 98.2
--- NOTE | 2020-11-23 07:25 | NUR ---
PT HAD GOOD NIGHT. WAS GIVEN OXYCODONE GIVEN AT HS FOR HIS BACK DISCOMFORT. O2 ON AT 4L/NC. REFUSED OINTMENT TO BE APPLIED. BS THIS AM WAS 108. DRAINED 400ML ALEKSANDRA URINE FROM PENG. BED ALARM ON. CALL LIGHT IN REACH.
--- NOTE | 2020-11-23 07:52 | NUR ---
Assessment completed, alert/oriented, vital signs remain stable, denies significant pain this morning/ just usual aches, blood sugars in good control, heart RRR, lungs CTA/ denies any resp.difficulty, intermittent non-productive cough, patient is still on 4L.o2 via NC, sitting up in bed eating breakfast and a.m meds given, denies needs at thistime
[2020-11-23 17:12] VITALS: BP 127/74; PULSE 70; TEMP 98.4
--- NOTE | 2020-11-23 19:32 | NUR ---
RECEIVED CHANGE OF SHIFT REPORT FROM DAY SHIFT NURSE.
[2020-11-24 05:56] VITALS: BP 132/82; PULSE 71; TEMP 97.9
--- NOTE | 2020-11-24 07:00 | NUR ---
CHANGE OF SHIFT REPORT GIVEN TO DAY SHIFT NURSETOMMIE.
--- NOTE | 2020-11-24 07:06 | NUR ---
PT RESTING IN BED AT BEDSIDE SHIFT REPORT.
[2020-11-24 07:34] LABS: BASO % 0.5 % (0.0-2.0); EOS # 0.1 (0.0-0.7); EOS % 2.6 % (0-4.0); GRAN % 77.9 % (42.2-75.2); LYMPH # 0.4 (1.2-3.4); LYMPH % 11.3 % (20.0-51.0); MEAN CELL VOLUME 100 fl (80.0-100.0); MEAN CORPUSCULAR HGB CONC 31 g/dl (33.0-37.0); MEAN PLATELET VOLUME 11.7 fl (7.4-10.4); MONO # 0.3 (0.1-0.6); MONO % 7.2 % (1.7-9.3); PLATELET COUNT 167 K/mm3 (130-400); RED BLOOD COUNT 3.18 M/mm3 (4.20-5.60); REDCELL DISTRIBUTION WIDTH-CV 18.8 % (11.5-14.5)
[2020-11-24 07:42] LABS: HEMATOCRIT 31.7 % (42.0-52.0); HEMOGLOBIN 9.7 g/dl (13.5-18.0); MEAN CORPUSCULAR HEMOGLOBIN 31 pg (27.0-31.0)
[2020-11-24 07:54] LABS: CREATININE, serum 1.95 (0.66-1.25); MAGNESIUM 2.1 mg/dL (1.6-2.3); POTASSIUM 4.5 mmol/L (3.4-5.0)
[2020-11-24 16:00] VITALS: BP 113/68; PULSE 70; TEMP 9
[2020-11-24 16:01] VITALS: BP 113/68; PULSE 70; TEMP 98.3
--- NOTE | 2020-11-24 16:16 | NUR ---
COREY staffed with KRISTA Tovar Director to review the patient discharge disposition. There was a home evaluation done. The patient's family his life partner, Arlene and his sister are not comfortable taking the patient home due to his level of care. SNF is recommended. Discussed were the patient wanting information on local housing options, VA information, and applying for Medicaid. SW to provide the above information to the patient. Lauren Moreno, Financial Counselor consulted. COREY contacted Arlene to discuss the discharge plan. She is not able to assist caring for the patient. COREY reviewed Medicare.gov's list of post acute rehab options in [place]. The first choice is [facility], second choice is [facility], and third choice is [facility]. Referrals faxed.
--- NOTE | 2020-11-24 18:00 | NUR ---
PT RECEIEVED PRN PERCOCET ONCE THIS SHIFT FOR PAIN 05/16. PT'S LEG BAG CHANGED TO DRAINAGE BAG AROUND 1400 WHEN PT GOT BACK IN BED AFTER THERAPY. ENDS CONTAINED AND SCRUBBED WITH ALCOHOL. PT UPSET BECAUSE HOME EVALUATION DID NOT GO SMOOTHLY HOPED. [facility]ING [facility].
--- NOTE | 2020-11-24 19:16 | NUR ---
RECEIVED CHANGE OF SHIFT REPORT FROM DAY SHIFT NURSE.
[2020-11-25 04:01] VITALS: BP 120/71; PULSE 72; TEMP 97.6
--- NOTE | 2020-11-25 07:07 | NUR ---
bedside shift report received from CINTHYA Grigsby
--- NOTE | 2020-11-25 07:14 | NUR ---
CHANGE OF SHIFT REPORT GIVEN TO DAY SHIFT NURSE
--- NOTE | 2020-11-25 08:00 | NUR ---
resting in bed and finishing breakfast, full assessment completed, see interventions for further info, garcía catheter drainage bag changed to leg bag after properly being cleaned, has dressing to left and right elbow due to skin tears, compression hose on bilaterally,
--- NOTE | 2020-11-25 08:40 | NUR ---
speech therapy in to work with patient
--- NOTE | 2020-11-25 09:30 | NUR ---
physical therapy in and patient ambulating out in [place] with therapist
--- NOTE | 2020-11-25 11:00 | NUR ---
occupational therapy in assisting him with a shower
--- NOTE | 2020-11-25 11:57 | NUR ---
up in chair after shower with therapy, having lunch
--- NOTE | 2020-11-25 13:26 | NUR ---
physical therapy in working with patient
--- NOTE | 2020-11-25 15:20 | NUR ---
resting in bed and making phone calls
[2020-11-25 16:07] VITALS: BP 126/72; PULSE 72; TEMP 98.2
--- NOTE | 2020-11-25 18:32 | NUR ---
bedside shift report given to CINTHYA Grigsby
--- NOTE | 2020-11-25 18:44 | NUR ---
RECEIVED CHANGE OF SHIFT REPORT FROM DAY SHIFT NURSE.
[2020-11-26 05:46] VITALS: BP 138/72; PULSE 70; TEMP 97.9
--- NOTE | 2020-11-26 07:18 | NUR ---
CHANGE OF SHIFT REPORT GIVEN TO DAY SHIFT NURSEELIZABETH.
[2020-11-26] MEDS ORDERED: HALLS9.1 MG MM (08:44)
[2020-11-26] MEDS ORDERED: ZOLOFT 25MG25 MG PO (08:45)
--- NOTE | 2020-11-26 09:00 | NUR ---
Dressing changes completed this morning to bilateral arms. Left elbow abrasion has little draingage observed to xeroform that was removed. Area was cleaned patted dry and applied new xeroform and secured with mepilex. Left forearm skin tear has steri strips in place and is healing well and was left KUNAL. Left elbow skin tear has an abrasion from when he had his home study done at home on Tuesday. This area was cleaned patted dry and applied new mepilex to the area. Patricia area was cleaned and no redness or irritation observed. Catheter care was completed and leg bag attached. Patient was able to assist with putting the leg bag on to his own leg. Patient put on his own clothing both pants and shirt. Patient denied any questions prior to leaving.
--- NOTE | 2020-11-26 09:23 | NUR ---
Patient resting in bed, call light in reach and staff visiting with him at this time. Patient has been very anxious this morning, not knowing where he was going to be transferred. SW stopped by and let him know that he was accepted to [facility]. Patient was relieved to hear this news. Will continue to monitor.
--- NOTE | 2020-11-26 09:34 | NUR ---
Follow-up visit; Patient and Tip Tester discussed Bibles and patient thanked Tip Tester for looking in on him again today. Patient appears to be doing a little better and states he is feeling better.
[2020-11-26] MEDS ORDERED: RT Albuterol HFA MDI IH ×2 (10:59)
[2020-11-26] MEDS ORDERED: TYLENOL 325MG325 MG PO (10:59)
[2020-11-26] MEDS ORDERED: PERCOCET 325 MG1 TAB PO (11:01)
[2020-11-26] MEDS ORDERED: ASPIRIN E.C. 8181 MG PO (11:31)
--- NOTE | 2020-11-26 12:33 | NUR ---
[facility] is not able to accept referral as they do not feel patient is far enough out from positive COVID test for them to accept. Concrete Saw Operator contacted Jorge at [facility] who advised they can accept today. COREY met with patient who is agreeable to this and states God has answered his prayers. COREY read IM form aloud to patient who verbalized understanding then provided his signature on form. COREY placed form in patient's chart. COREY also obtained patient's signatures on release of information forms as Lauren Financial Counselor is assisting patient with Medicaid Application. COREY then collaborated with Jorge to set transport time for 1200. COREY provided time to patient and RN. COREY advised Jorge patient is on three liters of oxygen. COREY faxed discharge orders to Jorge at [facility]. COREY then called patient's Arlene and left a message. COREY then contacted patient's sister, Atiya to notify her patient is discharging to [facility] today at noon. No additional needs at this time.
--- NOTE | 2020-11-26 12:45 | NUR ---
Patient Health Summary, Discharge Summary, and Home meds printed and sent with patient for his nurse at [facility] to have. Follow up appointments needed were discussed with CINTHYA Lucas at [facility]. Belongings gathered by CINTHYA/Yovana including Upper and lower dentures, glasses, iphone, senior field service engineer, army green bag, meds in a bag, back pack as well as other misc. items. Patient transported via wheelchair by [facility] and seatbelted for ride to SNF. Patient denied any questions. This nurse gave report to CINTHYA Lucas at [facility]. She voiced understanding.
--- NOTE | 2020-11-27 13:40 | NUR ---
Discharge QIM scores were reviewed by the team. Code of 6 chosen for oral hygiene was determined by team discussion to be the most usual performance before interventions for this patient during the assessment period. Code of 6 chosen for toilet hygiene was determined by team discussion to be the most usual performance for this patient during the assessment period. Code of 6 chosen for toileting transfers was determined by team discussion to be the most usual performance for this patient during the assessment period. Code of 6 chosen for putting on/taking off footwear was determined by team discussion to be the most usual performance for this patient during the assessment period. Code of 4 for sit to stand was determined by team discussion to be the most usual performance for this patient during the assessment period. Code of 4 for chair/bed to chair transfers was determined by team discussion to be the most usual performance for this patient during the assessment period. Code of 6 chosen for walk 10 feet was determined by team discussion to be the most usual performance for this patient during the assessment period.--La English, PD
== END 2020-11-26 12:40 | DRG 177 ==
PROVIDERS: Internal Medicine Nephrology; Physician Assistant; ADMIT Internal Medicine
DX: U07.1 COVID-19 (principal); I50.33 Acute on chronic diastolic (congestive) heart failure; K72.00 Acute and subacute hepatic failure without coma; J96.21 Acute and chronic respiratory failure with hypoxia; G72.81 Critical illness myopathy; I13.0 Hypertensive heart and chronic kidney disease with heart failure and stage 1 through stage 4 chronic kidney disease, or unspecified chronic kidney disease; D61.818 Other pancytopenia; G93.40 Encephalopathy, unspecified; N17.9 Acute kidney failure, unspecified; E87.2 Acidosis; E11.22 Type 2 diabetes mellitus with diabetic chronic kidney disease; N18.30 Chronic kidney disease, stage 3 unspecified; J44.9 Chronic obstructive pulmonary disease, unspecified; I25.10 Atherosclerotic heart disease of native coronary artery without angina pectoris; K80.20 Calculus of gallbladder without cholecystitis without obstruction; E27.9 Disorder of adrenal gland, unspecified; I35.0 Nonrheumatic aortic (valve) stenosis; F32.9 Major depressive disorder, single episode, unspecified; R26.89 Other abnormalities of gait and mobility; D63.1 Anemia in chronic kidney disease; N40.1 Benign prostatic hyperplasia with lower urinary tract symptoms; R33.8 Other retention of urine; E78.5 Hyperlipidemia, unspecified; R53.81 Other malaise; Z79.891 Long term (current) use of opiate analgesic; Z79.01 Long term (current) use of anticoagulants; Z79.4 Long term (current) use of insulin; Z99.81 Dependence on supplemental oxygen; Z73.6 Limitation of activities due to disability; Z95.0 Presence of cardiac pacemaker; Z96.652 Presence of left artificial knee joint; Z88.1 Allergy status to other antibiotic agents; Z88.0 Allergy status to penicillin; Z88.8 Allergy status to other drugs, medicaments and biological substances
CPT/HCPCS: 99222-AI; 99231-AI; 99232-AI; 99233-AI; 99239; J1815; J7030

== ENCOUNTER → 2020-12-02 | Outpatient (CLI) | payer MEDICARE ==
[~2020-12-02] MED LIST changes: +ASPIRIN E.C. 8181 MG PO; +ELIQUIS 2.5 PO; +HALLS9.1 MG MM; +NOVOLOG 100U100 U/M1 SQ; +RT Albuterol HFA MDI IH; +SENOKOT S 50 MG1 TAB PO; +TYLENOL 325MG325 MG PO; +ZOLOFT 25MG25 MG PO
[2020-12-02 13:20] LABS: BASO % 0.7 % (0.0-2.0); EOS # 0.1 (0.0-0.7); EOS % 1.5 % (0-4.0); GRAN # 4.1 (1.4-6.5); GRAN % 76.3 % (42.2-75.2); HEMATOCRIT 32.2 % (42.0-52.0); HEMOGLOBIN 9.8 g/dl (13.5-18.0); LYMPH # 0.7 (1.2-3.4); LYMPH % 13.7 % (20.0-51.0); MEAN CELL VOLUME 100 fl (80.0-100.0); MEAN CORPUSCULAR HEMOGLOBIN 31 pg (27.0-31.0); MEAN CORPUSCULAR HGB CONC 30 g/dl (33.0-37.0); MEAN PLATELET VOLUME 12.9 fl (7.4-10.4); MONO # 0.4 (0.1-0.6); MONO % 7.2 % (1.7-9.3); PLATELET COUNT 181 K/mm3 (130-400); RED BLOOD COUNT 3.21 M/mm3 (4.20-5.60); REDCELL DISTRIBUTION WIDTH-CV 19.5 % (11.5-14.5)
[2020-12-02 13:41] LABS: BILIRUBIN,TOTAL 0.7 mg/dL (0.0-1.0); CALCIUM 8.9 mg/dL (8.4-10.2); CREATININE, serum 1.88 (0.66-1.25); POTASSIUM 4.5 mmol/L (3.4-5.0); TOTAL PROTEIN 6.5 gm/dL (6.4-8.2)
== END ==
LOC: ZLAB.STJ 12:33
PROVIDERS: Internal Medicine Nephrology
DX: J44.9 Chronic obstructive pulmonary disease, unspecified (principal)

== ENCOUNTER → 2020-12-06 | Outpatient (CLI) | payer MEDICARE ==
[2020-12-06 20:48] LABS: CALCIUM 8.9 mg/dL (8.4-10.2); CREATININE, serum 1.74 (0.66-1.25); POTASSIUM 5.5 mmol/L (3.4-5.0)
== END ==
LOC: ZCOL.LAB 20:18
PROVIDERS: Family Medicine
DX: Z01.89 Encounter for other specified special examinations (principal)

== ENCOUNTER → 2020-12-10 | Outpatient (REF) ==
[~2020-12-10] MED LIST changes: +K-TAB20 PO; +LASIX 80MG TABL80 MG PO
[2020-12-10 11:46] LABS: CALCIUM 8.9 mg/dL (8.4-10.2); CREATININE, serum 1.95 (0.66-1.25); POTASSIUM 4.6 mmol/L (3.4-5.0)
== END ==
LOC: ZLAB.STJ 11:34
DX: Z01.89 Encounter for other specified special examinations (principal)

== ENCOUNTER 2020-12-11 14:30 | Inpatient (IN) | payer MEDICARE, OTHER ==
[~2020-12-11] VITALS: Ht 180.3 cm; Wt 118.3 kg
[~2020-12-11 14:30] MED LIST changes: -K-TAB20 PO; -LASIX 80MG TABL80 MG PO
[2020-12-11 15:55] LABS: BASO % 0.4 % (0.0-2.0); EOS # 0.1 (0.0-0.7); EOS % 1.7 % (0-4.0); GRAN # 3.6 (1.4-6.5); GRAN % 77.9 % (42.2-75.2); HEMOGLOBIN 10.3 g/dl (13.5-18.0); LYMPH # 0.6 (1.2-3.4); LYMPH % 11.8 % (20.0-51.0); MEAN CELL VOLUME 102 fl (80.0-100.0); MEAN CORPUSCULAR HEMOGLOBIN 31 pg (27.0-31.0); MEAN CORPUSCULAR HGB CONC 30 g/dl (33.0-37.0); MONO # 0.4 (0.1-0.6); PLATELET COUNT 121 K/mm3 (130-400); RED BLOOD COUNT 3.36 M/mm3 (4.20-5.60); REDCELL DISTRIBUTION WIDTH-CV 18.7 % (11.5-14.5)
[2020-12-11 15:58] LABS: HEMATOCRIT 34.1 % (42.0-52.0)
[2020-12-11 16:05] LABS: ALBUMIN 3.2 gm/dL (3.5-5.0); BILIRUBIN,TOTAL 0.7 mg/dL (0.0-1.0); CALCIUM 8.7 mg/dL (8.4-10.2); CREATININE, serum 1.91 (0.66-1.25); POTASSIUM 4.8 mmol/L (3.4-5.0); TOTAL PROTEIN 6.8 gm/dL (6.4-8.2)
[2020-12-11 16:11] LABS: INR 1.2 (0.8-3.0); PROTHROMBIN TIME 13.9 SECONDS (9.7-12.8)
[2020-12-11 16:16] LABS: TROPONIN-I 0.019 ng/mL (0.000-0.035)
--- NOTE | 2020-12-11 20:15 | NUR ---
PATIENT RECEIVED FROM ED,HAS SCABS COVERED WITH DRESSING ON BOTH ELBOWS,HAS A TEAR ON THE SACRAL AREA.
[2020-12-11 20:51] VITALS: BP 131/68; PULSE 71; TEMP 97.9
[2020-12-11 21:41] LABS: C-REACTIVE PROTEIN 1.7 mg/dL (0.0-0.9)
[2020-12-11] MEDS ORDERED: LASIX 80MG TABL80 MG PO (21:43)
[2020-12-11] MEDS ORDERED: K-TAB20 PO (21:43)
[2020-12-11 21:54] LABS: MAGNESIUM 2.1 mg/dL (1.6-2.3); PHOSPHOROUS 3.7 mg/dL (2.5-4.5)
[2020-12-11 22:06] LABS: TROPONIN-I 3 HR POST INITIAL 0.024 ng/mL (0.000-0.034)
[2020-12-11 22:09] LABS: THYROID STIMULATING HORMONE 5.23 uIU/mL (0.465-4.680)
[2020-12-12 00:28] VITALS: BP 120/69; PULSE 70; TEMP 97.8
[2020-12-12 02:56] LABS: CALCIUM 8.4 mg/dL (8.4-10.2); CREATININE, serum 1.87 (0.66-1.25); POTASSIUM 3.9 mmol/L (3.4-5.0)
[2020-12-12 05:06] VITALS: BP 132/69; PULSE 70; TEMP 97.6
--- NOTE | 2020-12-12 05:51 | NUR ---
PATIENT HAS HAD RESTFUL NIGHT,ON BUMEX DRIP DIURESING MORE THAN 5OML PER HR.DUE MEDS GIVEN,DENIES PAIN.NO OTHER NEEDS AT THIS TIME.
[2020-12-12 07:10] LABS: BASO % 0.9 % (0.0-2.0); EOS # 0.1 (0.0-0.7); EOS % 4.3 % (0-4.0); GRAN # 2.2 (1.4-6.5); GRAN % 66.8 % (42.2-75.2); LYMPH # 0.5 (1.2-3.4); LYMPH % 15.4 % (20.0-51.0); MEAN CELL VOLUME 103 fl (80.0-100.0); MEAN CORPUSCULAR HGB CONC 30 g/dl (33.0-37.0); MEAN PLATELET VOLUME 12.7 fl (7.4-10.4); MONO # 0.4 (0.1-0.6); MONO % 12.3 % (1.7-9.3); PLATELET COUNT 113 K/mm3 (130-400); RED BLOOD COUNT 3.02 M/mm3 (4.20-5.60); REDCELL DISTRIBUTION WIDTH-CV 18.7 % (11.5-14.5)
[2020-12-12 07:28] LABS: CALCIUM 8.5 mg/dL (8.4-10.2); CHOLESTEROL RISK RATIO 3.2; CREATININE, serum 1.87 (0.66-1.25); POTASSIUM 3.8 mmol/L (3.4-5.0)
[2020-12-12 07:35] LABS: HEMATOCRIT 31.1 % (42.0-52.0); HEMOGLOBIN 9.2 g/dl (13.5-18.0); MEAN CORPUSCULAR HEMOGLOBIN 30 pg (27.0-31.0)
--- NOTE | 2020-12-12 08:00 | NUR ---
PATIENT IS A&O. VSS WITH TELE INPLACE. DENIES PAIN OR SOA. PATIENT C/O EDEMA IN SCROTUM & BLE, NOTED +3. PATIENT ON IV BUMEX GTT VIA PUMP INTO RIGHT WRIST IV. 1,000 FR. PENG TO DD WITH MOD AMOUNTS OF CLEAR YELLOW URINE NOTED. PT/OT CONSULTED. PATIENT REPORTS HE IS WC BOUND AT THE LONG-TERM. PATIENT CAME TO US FROM [facility]. PATIENT HAS EXTENSIVE HX INCLUDING CHF WITH A BNP OF 29,500 AND CKD. HEAD TO TOE ASSESSMENT COMPLETE. STUDENT NURSE WORKING WITH PATIENT TODAY, SEE NOTES. NO OTHER NEEDS. CALL LIGHT IN REACH.
[2020-12-12 09:09] VITALS: BP 118/46; PULSE 62; TEMP 97.5
[2020-12-12 09:16] VITALS: BP 123/77; PULSE 72; TEMP 97.5
--- NOTE | 2020-12-12 09:17 | NUR ---
Initial visit; Patient thanked Wheel And Caster Repairer for looking in on him and wishing him well.
--- NOTE | 2020-12-12 09:30 | NUR ---
[facility] RE[facility] AT BEDSIDE, ANSWERING ALL THE 'S QUESTIONS/CONCERNS. PATIENT PLANNING TO GO TO [facility] TODAY AT 1300.
--- NOTE | 2020-12-12 09:34 | NUR ---
CALLED [facility] TO OBTAIN SOME REQUESTED PERSONAL ITEMS THE PATIENT WOULD LIKE. LEFT MESSAGE.
[2020-12-12 10:53] LABS: CALCIUM 8.5 mg/dL (8.4-10.2); CREATININE, serum 1.84 (0.66-1.25); POTASSIUM 3.8 mmol/L (3.4-5.0)
--- NOTE | 2020-12-12 11:30 | NUR ---
HOSPITALIST TEAM ROUNDING
[2020-12-12 13:25] VITALS: BP 141/71; PULSE 72; TEMP 97.5
--- NOTE | 2020-12-12 14:19 | NUR ---
Primary nurse was assisted with [phone] patient care by [employer] student Ria Martinez and [employer] instructor Tati Stewart RN-BC.
--- NOTE | 2020-12-12 14:32 | NUR ---
Auto Body Repairer met with patient to discuss discharge planning. Patient was recently discharged from [facility] on 11/26/20 and was discharged to [facility]. Patient has been at [facility] since and plans to return there upon discharge. Patient sees Dr. Sol for primary care. Prior to last hospitalization and subsequent [facility] stay, patient was living in [place] with his , Arlene (ph#[phone]) and sister, Atiya (ph#[phone]). COREY contacted Jorge at [facility] who advised they would accept patient back upon discharge. COREY consulted Lauren Financial Counselor about Medicaid application, which she completed today. COREY called patient's , Arlene and left a message. COREY then contacted Atiya to review discharge plan. Atiya is in agreement with patient discharging back to [facility]. Later on, COREY followed up with patient who was tearful as he was told he would be transferring to [facility]. Patient states only God can help him now. COREY assisted patient in contacting his sister, Atiya for support. COREY also contacted Chaplain Tristian to request he visit patient. COREY then contacted Jorge at [facility] to notify him that plan is for patient to transfer to [facility].
[2020-12-12 16:00] VITALS: BP 129/65; PULSE 70; TEMP 98.7
--- NOTE | 2020-12-12 17:00 | NUR ---
PATIENT TRANSFERING TO [facility]. PATIENT TRANSFERED WITH IV BUMEX INFUSING VIA PUMP INTO LEFT WRIST. GINETTE TO COLLEEN. TELE OFF. GAVE INFO PACKET TO EMS. CALLED REPORT TO . PATIENT DISCHARGED WITH PERSONAL BELONGINGS.
== END 2020-12-12 17:00 | disposition short-term general hospital (02) | DRG 291 ==
LOC: COL.ER 14:30 → MEDICAL 18:01
PROVIDERS: Nurse Practitioner Family; Nurse Practitioner Primary Care; ADMIT Student in an Organized Health Care Education/Training Program
DX: I13.0 Hypertensive heart and chronic kidney disease with heart failure and stage 1 through stage 4 chronic kidney disease, or unspecified chronic kidney disease (principal); J18.9 Pneumonia, unspecified organism; I50.23 Acute on chronic systolic (congestive) heart failure; J96.11 Chronic respiratory failure with hypoxia; J44.0 Chronic obstructive pulmonary disease with (acute) lower respiratory infection; D61.818 Other pancytopenia; E78.5 Hyperlipidemia, unspecified; I25.10 Atherosclerotic heart disease of native coronary artery without angina pectoris; I27.20 Pulmonary hypertension, unspecified; N18.30 Chronic kidney disease, stage 3 unspecified; I35.0 Nonrheumatic aortic (valve) stenosis; E11.22 Type 2 diabetes mellitus with diabetic chronic kidney disease; E27.8 Other specified disorders of adrenal gland; I48.91 Unspecified atrial fibrillation; N40.1 Benign prostatic hyperplasia with lower urinary tract symptoms; R33.8 Other retention of urine; F32.9 Major depressive disorder, single episode, unspecified; Z99.81 Dependence on supplemental oxygen; Z95.0 Presence of cardiac pacemaker; Z86.16 Personal history of COVID-19; Z79.82 Long term (current) use of aspirin; Z88.0 Allergy status to penicillin; Z88.1 Allergy status to other antibiotic agents; Z96.652 Presence of left artificial knee joint; Z79.4 Long term (current) use of insulin; Z87.891 Personal history of nicotine dependence
CPT/HCPCS: OP; 99223-AI; 99233-AI; 99239; G0378; J0692; J1815; J1940; J3370; J7050

== ENCOUNTER 2021-01-06 09:00 | Outpatient (RCR) | payer OTHER ==
[2021-01-06] VITALS (11 sets, daily range): BP systolic 120–141; BP diastolic 58–81; PULSE 69–73; TEMP 97.8–99.2
[~2021-01-06] VITALS: Ht 180.3 cm; Wt 93.9 kg
[~2021-01-06 09:00] MED LIST changes: -DESYREL 100MG100 MG PO; +DESYREL 50MG50 MG PO; +K-TAB20 PO; +LASIX 80MG TABL80 MG PO
[2021-01-06] MEDS ORDERED: TYLENOL SU650 MG/SUP RC (10:08)
[2021-01-06] MEDS ORDERED: AFRIN 15 ML15 ML NS (10:19)
[2021-01-06] MEDS ORDERED: ALDACTONE 25MG25 M1 PO (10:19)
[2021-01-06] MEDS ORDERED: AYR SALINE MIST50 ML NS (10:20)
[2021-01-06] MEDS ORDERED: DULCOLAX S10 MG/SUPP RC (10:21)
[2021-01-06] MEDS ORDERED: DEBROX OT (10:22)
[2021-01-06] MEDS ORDERED: DEMADEX 20MG20 M1 PO (10:22)
[2021-01-06] MEDS ORDERED: ELIQUIS 5MG PO (10:23)
[2021-01-06] MEDS ORDERED: IPRATROPIUM BROM3 M1 IH (10:24)
[2021-01-06] MEDS ORDERED: IMODIUM 2MG CAPS2 MG PO (10:24)
[2021-01-06] MEDS ORDERED: ALMACONE 360 M360 ML PO (10:25)
[2021-01-06] MEDS ORDERED: MILK OF MA400 MG/52 PO (10:25)
[2021-01-06] MEDS ORDERED: PRAVACHOL 40MG40 MG PO (10:26)
[2021-01-06] MEDS ORDERED: NASAL MOISTURIZ45 ML NS (10:27)
[2021-01-06] MEDS ORDERED: ZYLOPRIM 100MG100 MG PO (10:27)
--- NOTE | 2021-01-06 12:42 | NUR ---
PT SEEMS TO BE TOLERATING TRANSFUSION WITH NO PROBLEM. PT IS SITTING UP EATING LUNCH IN BED, PT HAS TAKEN TORSEMIDE 40 MG PO ORDERED BTW UNITS, 2ND UNIT INFUSING AT 150 CC/HR. PT WEARING 2LO2/NC AT THIS TIME, TAKING A BREAK FROM HIS MASK.
--- NOTE | 2021-01-06 16:22 | NUR ---
PT TOLERATED TRANSFUSIONS WELL, IV WAS DC'D AND PT WAS TAKEN TO EXIT VIA WHEELCHAIR WHERE STAFF FROM [facility] WAS WAITING TO TAKE HIM HOME.
[2021-03-08] MEDS ORDERED: BACTRIM DS 8001 TAB PO (12:20)
[2021-03-10] MEDS ORDERED: MACROBID 1100 MG/CAP PO (11:39)
== END 2021-01-06 17:28 | disposition home or self-care (01) ==
LOC: EUO 09:00
DX: I50.43 Acute on chronic combined systolic (congestive) and diastolic (congestive) heart failure (principal); N18.4 Chronic kidney disease, stage 4 (severe); D64.9 Anemia, unspecified; Z95.2 Presence of prosthetic heart valve
CPT/HCPCS: J7050; P9016

== ENCOUNTER 2021-01-11 22:00 | Emergency (ER) | payer MEDICARE, MEDICAID ==
[~2021-01-11] VITALS: Ht 180.3 cm; Wt 89.1 kg
[~2021-01-11 22:00] MED LIST changes: +AFRIN 15 ML15 ML NS; +ALDACTONE 25MG25 M1 PO; +ALMACONE 360 M360 ML PO; +AYR SALINE MIST50 ML NS; +DEBROX OT; +DULCOLAX S10 MG/SUPP RC; +IMODIUM 2MG CAPS2 MG PO; +MILK OF MA400 MG/52 PO; +NASAL MOISTURIZ45 ML NS; +TYLENOL SU650 MG/SUP RC
[2021-01-11 22:03] VITALS: TEMP 98.2
[2021-01-11 22:41] VITALS: BP 134/74; PULSE 75
[2021-03-08] MEDS ORDERED: BACTRIM DS 8001 TAB PO (12:20)
[2021-03-10] MEDS ORDERED: MACROBID 1100 MG/CAP PO (11:39)
== END 2021-01-11 22:38 | disposition home or self-care (01) ==
LOC: COL.ER 22:00
DX: T83.031A Leakage of indwelling urethral catheter, initial encounter (principal); N18.4 Chronic kidney disease, stage 4 (severe); Z95.0 Presence of cardiac pacemaker; Z88.1 Allergy status to other antibiotic agents; Z88.0 Allergy status to penicillin; Z87.891 Personal history of nicotine dependence; Z79.82 Long term (current) use of aspirin; Z79.01 Long term (current) use of anticoagulants

== ENCOUNTER 2021-01-18 17:20 | Emergency (ER) | payer MEDICARE ==
[~2021-01-18] VITALS: Ht 180.3 cm; Wt 93.2 kg
[2021-01-18 17:33] VITALS: BP 137/84; TEMP 98.6
[2021-01-18 18:02] VITALS: PULSE 75
[2021-03-08] MEDS ORDERED: BACTRIM DS 8001 TAB PO (12:20)
[2021-03-10] MEDS ORDERED: MACROBID 1100 MG/CAP PO (11:39)
== END 2021-01-18 18:02 | disposition home or self-care (01) ==
LOC: COL.ER 17:20
DX: S40.811A Abrasion of right upper arm, initial encounter (principal); T83.091A Other mechanical complication of indwelling urethral catheter, initial encounter; N18.4 Chronic kidney disease, stage 4 (severe); N40.0 Benign prostatic hyperplasia without lower urinary tract symptoms; Z95.0 Presence of cardiac pacemaker; Z88.1 Allergy status to other antibiotic agents; Z88.0 Allergy status to penicillin; Z87.891 Personal history of nicotine dependence; Z79.82 Long term (current) use of aspirin; Z79.01 Long term (current) use of anticoagulants; X58.XXXA Exposure to other specified factors, initial encounter

== ENCOUNTER 2021-03-08 22:45 | Emergency (ER) | payer MEDICARE, MEDICAID ==
[~2021-03-08] VITALS: Ht 180.3 cm; Wt 96.8 kg
[~2021-03-08 22:45] MED LIST changes: +BACTRIM DS 8001 TAB PO
[2021-03-08 23:22] LABS: BASO % 0.4 % (0.0-2.0); EOS # 0.1 (0.0-0.7); EOS % 1.8 % (0-4.0); GRAN # 5.8 (1.4-6.5); GRAN % 80.9 % (42.2-75.2); HEMOGLOBIN 10.7 g/dl (13.5-18.0); LYMPH # 0.6 (1.2-3.4); LYMPH % 8.6 % (20.0-51.0); MEAN CELL VOLUME 90 fl (80.0-100.0); MEAN CORPUSCULAR HEMOGLOBIN 27 pg (27.0-31.0); MEAN CORPUSCULAR HGB CONC 30 g/dl (33.0-37.0); MEAN PLATELET VOLUME 10.5 fl (7.4-10.4); MONO # 0.6 (0.1-0.6); PLATELET COUNT 147 K/mm3 (130-400); RED BLOOD COUNT 3.99 M/mm3 (4.20-5.60); REDCELL DISTRIBUTION WIDTH-CV 16.1 % (11.5-14.5)
[2021-03-08 23:23] LABS: HEMATOCRIT 35.8 % (42.0-52.0)
[2021-03-08 23:30] LABS: INR 4.5 (0.8-3.0)
[2021-03-08 23:32] LABS: CALCIUM 8.9 mg/dL (8.4-10.2); CREATININE, serum 1.7 (0.66-1.25); PARTIAL THROMBOPLASTIN TIME 38.2 SECONDS (26.0-37.0); POTASSIUM 4.5 mmol/L (3.4-5.0)
[2021-03-08 23:35] LABS: PROTHROMBIN TIME 50.5 SECONDS (9.7-12.8)
[2021-03-09 00:01] VITALS: BP 152/87; PULSE 81; TEMP 99
[2021-03-10] MEDS ORDERED: MACROBID 1100 MG/CAP PO (11:39)
== END 2021-03-09 00:45 | disposition home or self-care (01) ==
LOC: COL.ER 22:45
PROVIDERS: Emergency Medicine
DX: T83.098A Other mechanical complication of other urinary catheter, initial encounter (principal); N39.0 Urinary tract infection, site not specified; R79.1 Abnormal coagulation profile; D64.9 Anemia, unspecified; R60.0 Localized edema; N18.4 Chronic kidney disease, stage 4 (severe); N40.0 Benign prostatic hyperplasia without lower urinary tract symptoms; Z88.1 Allergy status to other antibiotic agents; Z88.0 Allergy status to penicillin; Z79.82 Long term (current) use of aspirin; Z79.01 Long term (current) use of anticoagulants; Z79.899 Other long term (current) drug therapy

== ENCOUNTER 2021-03-13 18:50 | Emergency (ER) | payer MEDICARE, MEDICAID ==
[~2021-03-13] VITALS: Ht 180.3 cm; Wt 96.8 kg
[~2021-03-13 18:50] MED LIST changes: +MACROBID 1100 MG/CAP PO
[2021-03-13 19:20] LABS: BASO % 0.3 % (0.0-2.0); EOS # 0.1 (0.0-0.7); EOS % 1.5 % (0-4.0); GRAN # 7.5 (1.4-6.5); GRAN % 86.9 % (42.2-75.2); HEMATOCRIT 38.1 % (42.0-52.0); HEMOGLOBIN 11.6 g/dl (13.5-18.0); LYMPH # 0.4 (1.2-3.4); LYMPH % 4.2 % (20.0-51.0); MEAN CELL VOLUME 87 fl (80.0-100.0); MEAN CORPUSCULAR HEMOGLOBIN 26 pg (27.0-31.0); MEAN CORPUSCULAR HGB CONC 30 g/dl (33.0-37.0); MEAN PLATELET VOLUME 11.3 fl (7.4-10.4); MONO # 0.6 (0.1-0.6); MONO % 6.8 % (1.7-9.3); PLATELET COUNT 177 K/mm3 (130-400); RED BLOOD COUNT 4.39 M/mm3 (4.20-5.60); REDCELL DISTRIBUTION WIDTH-CV 16.2 % (11.5-14.5)
[2021-03-13 19:31] LABS: ALBUMIN 3.6 gm/dL (3.5-5.0); BILIRUBIN,TOTAL 0.8 mg/dL (0.0-1.0); CREATININE, serum 2.08 (0.66-1.25); POTASSIUM 4.4 mmol/L (3.4-5.0)
[2021-03-13 19:40] LABS: PROTHROMBIN TIME 45.2 SECONDS (9.7-12.8)
[2021-03-13 19:44] LABS: TROPONIN-I 0.144 ng/mL (0.000-0.035)
[2021-03-13] MEDS ORDERED: COUMADIN 5MG5 MG/TAB PO (20:59)
[2021-03-14 00:30] VITALS: BP 131/71; PULSE 72; TEMP 98.5
== END 2021-03-14 00:32 ==
LOC: COL.ER 18:50
PROVIDERS: Nurse Practitioner Primary Care
DX: N17.9 Acute kidney failure, unspecified (principal); I13.0 Hypertensive heart and chronic kidney disease with heart failure and stage 1 through stage 4 chronic kidney disease, or unspecified chronic kidney disease; N18.4 Chronic kidney disease, stage 4 (severe); R74.8 Abnormal levels of other serum enzymes; J44.9 Chronic obstructive pulmonary disease, unspecified; I27.20 Pulmonary hypertension, unspecified; G47.33 Obstructive sleep apnea (adult) (pediatric); Z95.4 Presence of other heart-valve replacement; Z86.79 Personal history of other diseases of the circulatory system; Z87.891 Personal history of nicotine dependence; Z99.81 Dependence on supplemental oxygen; Z88.0 Allergy status to penicillin; Z88.1 Allergy status to other antibiotic agents; Z79.82 Long term (current) use of aspirin; Z79.899 Other long term (current) drug therapy; Z79.51 Long term (current) use of inhaled steroids; Z79.01 Long term (current) use of anticoagulants
CPT/HCPCS: J1940; J7030

== ENCOUNTER → 2021-05-15 | Outpatient (CLI) | payer MEDICARE, MEDICAID ==
[2021-05-15 17:23] LABS: COLLECTION METHOD CATHETER
[2021-05-15 17:31] LABS: PH 5 (5-8); SQUAMOUS EPITHELIAL None Seen /hpf; URINE APPEARANCE Cloudy; URINE BACTERIA Rare /hpf; URINE BILIRUBIN Negative (NEGATIVE); URINE BLOOD 3+ (NEGATIVE); URINE COLOR Yellow; URINE GLUCOSE 1+ (NEGATIVE); URINE KETONE Negative (NEGATIVE); URINE LEUKOCYTE ESTERASE 3+ (NEGATIVE); URINE NITRATE Negative (NEGATIVE); URINE PROTEIN(semi-quant) 2+ (NEGATIVE); URINE RBC >50 /hpf; URINE UROBILINOGEN Negative (NEGATIVE); URINE WBC >50 /hpf
== END ==
LOC: ZCOL.LAB 17:07
PROVIDERS: Urology
DX: R33.8 Other retention of urine (principal); R35.0 Frequency of micturition

== ENCOUNTER 2021-11-02 02:17 | Emergency (ER) | payer MEDICARE, MEDICAID ==
[~2021-11-02] VITALS: Ht 177.8 cm; Wt 100.0 kg
[2021-11-02 02:18] VITALS: TEMP 97.9
[2021-11-02 02:58] LABS: BASO % 0.4 % (0.0-2.0); EOS # 0.1 K/mm3 (0.0-0.7); EOS % 2.2 % (0.0-4.0); GRAN # 3.6 K/mm3 (1.4-6.5); GRAN % 79.2 % (42.2-75.2); LYMPH # 0.5 K/mm3 (1.2-3.4); MEAN CELL VOLUME 93 fl (80.0-100.0); MEAN CORPUSCULAR HGB CONC 32 g/dl (33.0-37.0); MEAN PLATELET VOLUME 11.9 fl (7.4-10.4); MONO # 0.4 K/mm3 (0.1-0.6); PLATELET COUNT 137 K/mm3 (130-400); RED BLOOD COUNT 3.28 M/mm3 (4.20-5.60); REDCELL DISTRIBUTION WIDTH-CV 18.3 % (11.5-14.5)
[2021-11-02 03:00] LABS: HEMATOCRIT 30.4 % (42.0-52.0); HEMOGLOBIN 9.7 g/dl (13.5-18.0); MEAN CORPUSCULAR HEMOGLOBIN 30 pg (27-31)
[2021-11-02 03:14] LABS: PROTHROMBIN TIME 91.7 SECONDS (9.7-12.8)
[2021-11-02 03:15] LABS: INR 8.1 (0.8-3.0)
[2021-11-02 03:33] VITALS: BP 142/85; PULSE 65
[2021-11-02] MEDS ORDERED: NORCO 325 MG-101 TAB PO (03:43)
== END 2021-11-02 03:48 | disposition home or self-care (01) ==
LOC: COL.ER 02:17
PROVIDERS: Emergency Medicine
DX: S50.322A Blister (nonthermal) of left elbow, initial encounter (principal); I10 Essential (primary) hypertension; E78.5 Hyperlipidemia, unspecified; I25.10 Atherosclerotic heart disease of native coronary artery without angina pectoris; I25.2 Old myocardial infarction; Z79.01 Long term (current) use of anticoagulants; Z88.0 Allergy status to penicillin; Z79.82 Long term (current) use of aspirin; Z79.899 Other long term (current) drug therapy; W06.XXXA Fall from bed, initial encounter

== ENCOUNTER 2021-11-23 06:02 | Inpatient (IN) | payer MEDICARE, MEDICAID ==
[~2021-11-23] VITALS: Ht 177.8 cm; Wt 99.8 kg
[~2021-11-23 06:02] MED LIST changes: +NORCO 325 MG-101 TAB PO
[2021-11-23 08:28] VITALS: BP 113/61; PULSE 70; TEMP 98
[2021-11-23] MEDS ORDERED: MASON NATURAL2000 IU PO ×2 (08:53)
[2021-11-23] MEDS ORDERED: LIPITOR 80MG80 MG PO (09:02)
[2021-11-23] MEDS ORDERED: FLOMAX 0.40.4 MG/CAP PO (09:03)
[2021-11-23] MEDS ORDERED: ZYLOPRIM 100MG100 MG PO (09:03)
[2021-11-23] MEDS ORDERED: PERCOCET 325 MG1 TAB PO (09:10)
[2021-11-23 09:38] LABS: BASO % 0.2 % (0.0-2.0); EOS # 0.1 K/mm3 (0.0-0.7); EOS % 1.4 % (0.0-4.0); GRAN # 4.1 K/mm3 (1.4-6.5); GRAN % 80.8 % (42.2-75.2); LYMPH # 0.5 K/mm3 (1.2-3.4); LYMPH % 9.5 % (20.0-51.0); MEAN CELL VOLUME 98 fl (80.0-100.0); MEAN CORPUSCULAR HGB CONC 30 g/dl (33.0-37.0); MEAN PLATELET VOLUME 10.6 fl (7.4-10.4); MONO # 0.4 K/mm3 (0.1-0.6); MONO % 7.7 % (1.7-9.3); PLATELET COUNT 138 K/mm3 (130-400); RED BLOOD COUNT 3.13 M/mm3 (4.20-5.60); REDCELL DISTRIBUTION WIDTH-CV 18.1 % (11.5-14.5)
[2021-11-23 09:42] LABS: HEMATOCRIT 30.6 % (42.0-52.0); HEMOGLOBIN 9.2 g/dl (13.5-18.0); MEAN CORPUSCULAR HEMOGLOBIN 29 pg (27-31)
[2021-11-23 09:48] LABS: INR 1.4 (0.8-3.0); PROTHROMBIN TIME 15.1 SECONDS (9.7-12.8)
--- NOTE | 2021-11-23 09:48 | NUR ---
PT SITTING UP IN RECLINER. ADMISSION INTAKE AND ASSESSMENT COMPLETED. MED REC UPDATED. IV STARTED TO R WRIST. DENIES ANY PAIN OR NEEDS. AMBULATES TO BATHROOM WITH CANE WELL. WILL CONTINUE TO MONITOR.
[2021-11-23 09:57] LABS: ALBUMIN 3.2 gm/dL (3.4-4.8); BILIRUBIN,TOTAL 1.2 mg/dL (0.2-1.2); CALCIUM 8.8 mg/dL (8.4-10.2); CREATININE, serum 2.8 mg/dL (0.72-1.25); PHOSPHOROUS 4.1 mg/dL (2.3-4.7); POTASSIUM 4.3 mmol/L (3.5-4.5); TOTAL PROTEIN 6.7 gm/dL (6.2-8.1)
--- NOTE | 2021-11-23 11:58 | NUR ---
salvage mend worker met with patient to discuss discharge plan. Patient reports that he lives at home with his Arlene ([phone]). Patient reports that he is independent with his ADL's and he utilizes a cane to ambulate. He utilizes a walker when he knows he has to walk a long distance. PCP is Dr. Sol and he utilizes [facility] for medications. Patient states he has an "old" cpap machine and that Dr. Sol is supposed to order him a new one. Patient does have a DPOA-HC on file listing Arlene and Atiya. Discharge plan: Home
[2021-11-23 11:59] VITALS: BP 122/63; PULSE 70; TEMP 98.1
[2021-11-23 16:45] VITALS: BP 124/65; PULSE 70; TEMP 98.2
--- NOTE | 2021-11-23 20:30 | NUR ---
Patient is resting in bed, alert and oriented, sleepy. Complains of pain in his back, Tylenol provided. Telemetry in place, NSR. Bumex gtt 5ml/hr. Martínez in place, clear yellow output. LUE restricted. Assessment completed, medications provided. No further needs at this time. Call light within reach.
[2021-11-23 21:45] VITALS: BP 127/61; PULSE 85; TEMP 99.7
[2021-11-23 22:37] VITALS: BP 117/65; PULSE 69; TEMP 98.3
[2021-11-24] VITALS (7 sets, daily range): BP systolic 109–135; BP diastolic 61–74; PULSE 55–71; TEMP 97.8–98.9
--- NOTE | 2021-11-24 06:14 | NUR ---
Patient continues with bumex gtt at 5ml/hr. O2 sats in the lower 90's. No other issues along the night. Report will be given to day RN.
[2021-11-24 06:15] LABS: BASO % 0.7 % (0.0-2.0); EOS # 0.1 K/mm3 (0.0-0.7); EOS % 1.4 % (0.0-4.0); GRAN # 3.2 K/mm3 (1.4-6.5); GRAN % 75.4 % (42.2-75.2); LYMPH # 0.5 K/mm3 (1.2-3.4); LYMPH % 12.8 % (20.0-51.0); MEAN CORPUSCULAR HGB CONC 31 g/dl (33.0-37.0); MEAN PLATELET VOLUME 10.5 fl (7.4-10.4); MONO # 0.4 K/mm3 (0.1-0.6); MONO % 9.5 % (1.7-9.3); PLATELET COUNT 123 K/mm3 (130-400); RED BLOOD COUNT 3.06 M/mm3 (4.20-5.60); REDCELL DISTRIBUTION WIDTH-CV 17.8 % (11.5-14.5)
[2021-11-24 06:27] LABS: ALBUMIN 2.9 gm/dL (3.4-4.8); CALCIUM 8.5 mg/dL (8.4-10.2); CREATININE, serum 2.79 mg/dL (0.72-1.25); PHOSPHOROUS 4.6 mg/dL (2.3-4.7)
[2021-11-24 06:34] LABS: HEMATOCRIT 28.4 % (42.0-52.0); HEMOGLOBIN 8.9 g/dl (13.5-18.0); MEAN CORPUSCULAR HEMOGLOBIN 29 pg (27-31)
[2021-11-24 06:35] LABS: MEAN CELL VOLUME 93 fl (80.0-100.0)
--- NOTE | 2021-11-24 08:41 | NUR ---
PT RESTING IN BED. MORNING MEDICATIONS GIVEN. SHIFT ASSESSMENT COMPLETED. REPORTS MILD BACK PAIN AT THIS TIME. PENG DRAINING WELL. BUMEX GTT CONTINUES AT 5ML/HR. WILL CONTINUE TO MONITOR.
--- NOTE | 2021-11-24 10:34 | NUR ---
First visit from the power mule operator. No needs right now.
--- NOTE | 2021-11-24 20:30 | NUR ---
Patient is resting in bed, alert and oriented x 4. O2 sat in 89-91. Pt asked for sleeping pill, will be provided at 22hrs. Denies pain, nausea or vomiting. Continue with bumex gtt at 2ml/hr. Cath care provided, dry blood around penis area and in cath tube. Assessment completed, medications provided. No further needs at this time. Call light within reach.
[2021-11-25 05:00] VITALS: BP 108/65; PULSE 71; TEMP 98.8
--- NOTE | 2021-11-25 06:18 | NUR ---
Pt complains of accumulation of gasses. PRN provided. Continues with bumex gtt at 2ml/hr. No other issues at night. Report will be given to day RN.
[2021-11-25 06:35] LABS: BASO % 0.4 % (0.0-2.0); EOS # 0.1 K/mm3 (0.0-0.7); EOS % 1.8 % (0.0-4.0); GRAN # 3.5 K/mm3 (1.4-6.5); LYMPH # 0.5 K/mm3 (1.2-3.4); LYMPH % 11.2 % (20.0-51.0); MEAN CELL VOLUME 95 fl (80.0-100.0); MEAN CORPUSCULAR HGB CONC 31 g/dl (33.0-37.0); MEAN PLATELET VOLUME 10.4 fl (7.4-10.4); MONO # 0.4 K/mm3 (0.1-0.6); MONO % 9.4 % (1.7-9.3); PLATELET COUNT 126 K/mm3 (130-400); REDCELL DISTRIBUTION WIDTH-CV 17.7 % (11.5-14.5)
[2021-11-25 06:38] LABS: INR 1.3 (0.8-3.0); PROTHROMBIN TIME 14.4 SECONDS (9.7-12.8)
[2021-11-25 06:48] LABS: HEMATOCRIT 28.4 % (42.0-52.0); HEMOGLOBIN 8.9 g/dl (13.5-18.0); MEAN CORPUSCULAR HEMOGLOBIN 30 pg (27-31)
[2021-11-25 07:11] LABS: ALBUMIN 2.8 gm/dL (3.4-4.8); CALCIUM 8.5 mg/dL (8.4-10.2); CREATININE, serum 2.57 mg/dL (0.72-1.25); PHOSPHOROUS 4.1 mg/dL (2.3-4.7); POTASSIUM 3.6 mmol/L (3.5-4.5)
[2021-11-25 08:14] VITALS: BP 121/75; PULSE 69; TEMP 98.9
--- NOTE | 2021-11-25 09:20 | NUR ---
Shift assessment complete. Pt lying in bed asleep, rouses easily to voice. A&Ox4. Heart RRR. Lungs CTA. +1 edema to BLE. Abdomen soft, nontender, distended. Pt denies pain or other concerns. Bumex gtt stopped and IV flushed per orders. Continuing to monitor.
[2021-11-25 11:47] VITALS: BP 122/63; PULSE 70; TEMP 98.6
[2021-11-25 16:00] VITALS: BP 119/68; PULSE 68; TEMP 98.5
[2021-11-25 19:48] VITALS: BP 104/64; PULSE 70; TEMP 98.4
--- NOTE | 2021-11-25 19:50 | NUR ---
Patient is resting in bed, napping, easily arousable. Denies pain, nausa or vomiting. Cath garcía in place with yellow output. Asked about more news about his . Waiting for information from charge nurse. Assessment completed, medications provided. No further needs at this time. Call light within reach.
--- NOTE | 2021-11-25 20:54 | NUR ---
at home. Heel Seat Fitter offered prayer and support with patient until executive pilot of patient arrived.
[2021-11-25 23:31] VITALS: BP 135/81; PULSE 71; TEMP 98.2
[2021-11-26 04:24] VITALS: BP 148/71; PULSE 70; TEMP 97.7
--- NOTE | 2021-11-26 06:25 | NUR ---
Patient has been resting in bed but unable to sleep. He has been calm after the news of his . He stated he is ok and as a Orthodox he accepts God decitions. Pt has been reading the bible. He had support from his personal ve teacher. He states he just want to come back home. Report will be given to day RN.
[2021-11-26 06:56] LABS: BASO % 0.4 % (0.0-2.0); EOS # 0.1 K/mm3 (0.0-0.7); EOS % 1.5 % (0.0-4.0); GRAN # 3.5 K/mm3 (1.4-6.5); GRAN % 76.7 % (42.2-75.2); LYMPH # 0.5 K/mm3 (1.2-3.4); LYMPH % 11.8 % (20.0-51.0); MEAN CELL VOLUME 95 fl (80.0-100.0); MEAN CORPUSCULAR HGB CONC 31 g/dl (33.0-37.0); MEAN PLATELET VOLUME 11.8 fl (7.4-10.4); MONO # 0.4 K/mm3 (0.1-0.6); MONO % 9.2 % (1.7-9.3); PLATELET COUNT 136 K/mm3 (130-400); RED BLOOD COUNT 3.15 M/mm3 (4.20-5.60); REDCELL DISTRIBUTION WIDTH-CV 17.7 % (11.5-14.5)
[2021-11-26 07:02] LABS: HEMATOCRIT 29.9 % (42.0-52.0); HEMOGLOBIN 9.3 g/dl (13.5-18.0); MEAN CORPUSCULAR HEMOGLOBIN 30 pg (27-31)
[2021-11-26 07:25] LABS: ALBUMIN 2.8 gm/dL (3.4-4.8); CALCIUM 8.3 mg/dL (8.4-10.2); CREATININE, serum 2.76 mg/dL (0.72-1.25); PHOSPHOROUS 4.2 mg/dL (2.3-4.7); POTASSIUM 3.7 mmol/L (3.5-4.5)
[2021-11-26 07:39] VITALS: BP 119/76; PULSE 71; TEMP 98.2
[2021-11-26] MEDS ORDERED: ZAROXOLYN 2.52.5 MG PO (10:52)
--- NOTE | 2021-11-26 11:46 | NUR ---
SOPHY Hughes, with Dr. Rodriguez notified COREY that they are ready to discharge the patient today and would like to get home health set up for him. Ellen also notified COREY that the patient's a couple nights ago and was found by a neighbor. The patient is unsure what home she went to and that he would also need a ride home. COREY met with the patient and provided support. The patient reports that he has been in contact with his road sign installer and mandaen friends. He reports that he now knows that his 's body went to [facility]. The patient is open to home health and states that his used to use [facility]. He would like to use them too. COREY contacted and faxed a referral to [facility]. The patient also confirmed that he needs a ride home. COREY inquired if his sister, Atiya, his alternate DPOA-HC on if she is able to transport. The patient reports that they do not have a good relationship now and he does not want her involved. COREY provided the patient's RN with at [facility]. The patient had no other questions or concerns for COREY at this time. COREY presented and read the IM form outloud to the patient. The patient verbalized understanding and gave COREY approval to sign the form on his behalf. COREY provided him with a copy. The patient is to discharge back home today, 11/26, with home health services for intermediate/PT/OT/woundcare from [facility]. No additional needs at this time.
[2021-11-26 12:20] VITALS: BP 120/63; PULSE 68
--- NOTE | 2021-11-26 14:16 | NUR ---
PT MET CRITERIA FOR DISCHARGE, VSS. PAIN CONTROLLED. IV REMOVED WITH NO COMPLICATIONS, CATHETER INTACT. DISCHARGE INSTRUCTIONS REVIEWED, PT VERBALIZED UNDERSTANDING. PT AWARE OF F/U APPT AND OF PRESCRIPTIONS TO TRACER LATHE SET UP OPERATOR. PT DC TO HOME VIA WHEELCHAIR ACCOMPANIED BY BARK FITTER.
== END 2021-11-26 14:17 | disposition home health service (06) | DRG 683 ==
LOC: MEDICAL 06:02
PROVIDERS: Registered Nurse; ADMIT Internal Medicine Nephrology
DX: N17.9 Acute kidney failure, unspecified (principal); I50.32 Chronic diastolic (congestive) heart failure; I13.0 Hypertensive heart and chronic kidney disease with heart failure and stage 1 through stage 4 chronic kidney disease, or unspecified chronic kidney disease; J96.11 Chronic respiratory failure with hypoxia; E11.22 Type 2 diabetes mellitus with diabetic chronic kidney disease; N18.32 Chronic kidney disease, stage 3b; J44.9 Chronic obstructive pulmonary disease, unspecified; I48.91 Unspecified atrial fibrillation; D63.1 Anemia in chronic kidney disease; F32.A Depression, unspecified; N40.0 Benign prostatic hyperplasia without lower urinary tract symptoms; M10.9 Gout, unspecified; E87.5 Hyperkalemia; E78.5 Hyperlipidemia, unspecified; Z20.822 Contact with and (suspected) exposure to COVID-19; I25.10 Atherosclerotic heart disease of native coronary artery without angina pectoris; Z79.01 Long term (current) use of anticoagulants; Z79.891 Long term (current) use of opiate analgesic; Z79.82 Long term (current) use of aspirin; Z95.0 Presence of cardiac pacemaker; Z96.652 Presence of left artificial knee joint; Z87.891 Personal history of nicotine dependence; Z88.1 Allergy status to other antibiotic agents; Z88.0 Allergy status to penicillin
CPT/HCPCS: J1815

== ENCOUNTER 2022-01-06 10:18 | Inpatient (IN) | payer MEDICARE, MEDICAID ==
[~2022-01-06] VITALS: Ht 177.8 cm; Wt 106.5 kg
[~2022-01-06 10:18] MED LIST changes: +LIPITOR 80MG80 MG PO; +ZAROXOLYN 2.52.5 MG PO
[2022-01-06 11:35] LABS: BASO % 0.4 % (0.0-2.0); EOS # 0.1 K/mm3 (0.0-0.7); EOS % 1.5 % (0.0-4.0); GRAN # 4.5 K/mm3 (1.4-6.5); GRAN % 84.1 % (42.2-75.2); HEMOGLOBIN 9.4 g/dl (13.5-18.0); LYMPH # 0.3 K/mm3 (1.2-3.4); LYMPH % 5.5 % (20.0-51.0); MEAN CELL VOLUME 96 fl (80.0-100.0); MEAN CORPUSCULAR HEMOGLOBIN 29 pg (27-31); MEAN CORPUSCULAR HGB CONC 30 g/dl (33.0-37.0); MONO # 0.4 K/mm3 (0.1-0.6); MONO % 8.1 % (1.7-9.3); PLATELET COUNT 137 K/mm3 (130-400); RED BLOOD COUNT 3.22 M/mm3 (4.20-5.60); REDCELL DISTRIBUTION WIDTH-CV 17.1 % (11.5-14.5)
[2022-01-06 12:24] LABS: ALANINE AMINOTRANSFERASE 11 U/L (0-55); ALBUMIN 3.3 gm/dL (3.4-4.8); ALKALINE PHOSPHATASE 116 U/L (40-150); AST,SGOT 12 U/L (5-34); CALCIUM 8.8 mg/dL (8.4-10.2); CARBON DIOXIDE 23 mmol/L (23-31); CREATININE, serum 4.91 mg/dL (0.72-1.25); GLUCOSE 220 mg/dL (70-99); TOTAL PROTEIN 6.8 gm/dL (6.2-8.1)
[2022-01-06 12:25] LABS: BLOOD UREA NITROGEN > 125 mg/dL (8-26); TROPONIN-I 0.065 ng/mL (0.00-0.033)
[2022-01-06 12:35] LABS: ANION GAP 14 mmol/L (7-16); CHLORIDE 100 mmol/L (98-107); POTASSIUM 4.9 mmol/L (3.5-4.5); SODIUM 137 mmol/L (136-145)
[2022-01-06 14:01] LABS: INR 2.2 (0.8-3.0); PROTHROMBIN TIME 24.5 SECONDS (9.7-12.8)
[2022-01-06 16:00] VITALS: BP 129/65; PULSE 70; TEMP 97.6
[2022-01-06] MEDS ORDERED: COUMADIN 1MG1 MG/TAB PO (16:39)
[2022-01-06 18:57] LABS: COLLECTION METHOD CATHETER
[2022-01-06 19:04] LABS: PH 5 (5-8); SQUAMOUS EPITHELIAL 0-2 /hpf (0-10); URINE APPEARANCE Clear (CLEAR/HAZY); URINE BACTERIA Rare /hpf (NONE SEEN); URINE BILIRUBIN Negative (NEGATIVE); URINE BLOOD Negative (NEGATIVE); URINE COLOR Yellow (YELLOW); URINE GLUCOSE Negative (NEGATIVE); URINE KETONE Negative (NEGATIVE); URINE LEUKOCYTE ESTERASE Negative (NEGATIVE); URINE NITRATE Negative (NEGATIVE); URINE PROTEIN(semi-quant) Negative (NEGATIVE); URINE UROBILINOGEN Negative (NEGATIVE)
--- NOTE | 2022-01-06 19:50 | NUR ---
PT HAD UNEVENTFUL AFTERNOON. PENG WAS PLACED. LABS WERE RECEIVED. ADMISSION COMPLETED. THE PATIENT DOES HAVE A COMPLAINT OF CHRONIC BACK PAIN, HE DOES HAVE PERCOCET A HOME MEDICATION. DR. CARRINGTON DID CALL AND ASKED THAT THIS RN CONTACT BEBETO ALCOCER WHO STATES ON OUR CALL "DR. AREVALO WOULD LIKE TO LAY EYES ON THE PATIENT BEFORE STARTING A DRIP FOR DIURESING." THIS RN CALLED DR. CARRINGTON BACK TO LET HIM KNOW OF THE RESPONSE. DR. CARRINGTON STATES "THAT'S FINE, WE'LL LET DR. AREVALO RUN THAT PART OF HIS CARE." THE PATIENT DOES HAVE A LOT OF OPEN WOUNDS ON THE BILATERAL LOWER EXTREMETIES FROM BLISTERS POPPING. LEGS ARE WEEPY, RED, AND VERY EDEMETOUS. ON THE PATIENT'S HEAD IS STERI STRIPS THAT ARE COVERING A BIOPSY THAT WAS TAKEN THIS LAST WEEK. REPORT WAS GIVEN TO CINTHYA GARCIA.
[2022-01-06 20:00] VITALS: BP 101/61; PULSE 70; TEMP 98.3
--- NOTE | 2022-01-06 20:11 | NUR ---
MR. FUENTES HANDED THIS RN A PAPER WITH EMERGENCY CONTACT UPDATES FOR HIS CHART: FRIEND SUSIE PAZ [address] [place], [place] [address] FRIEND CARRI RUIZ [address] [place] [address]
[2022-01-06 23:28] VITALS: BP 112/66; PULSE 70; TEMP 97.4
[2022-01-07 04:15] VITALS: BP 110/55; PULSE 70; TEMP 97.7
[2022-01-07 06:20] LABS: BASO % 0.2 % (0.0-2.0); EOS # 0.1 K/mm3 (0.0-0.7); EOS % 2.4 % (0.0-4.0); GRAN # 3.6 K/mm3 (1.4-6.5); GRAN % 78.2 % (42.2-75.2); LYMPH # 0.4 K/mm3 (1.2-3.4); LYMPH % 9.2 % (20.0-51.0); MEAN CELL VOLUME 95 fl (80.0-100.0); MEAN CORPUSCULAR HGB CONC 31 g/dl (33.0-37.0); MEAN PLATELET VOLUME 11.4 fl (7.4-10.4); MONO # 0.5 K/mm3 (0.1-0.6); MONO % 9.8 % (1.7-9.3); PLATELET COUNT 127 K/mm3 (130-400); RED BLOOD COUNT 3.17 M/mm3 (4.20-5.60); REDCELL DISTRIBUTION WIDTH-CV 17.1 % (11.5-14.5)
[2022-01-07 06:21] LABS: HEMOGLOBIN 9.2 g/dl (13.5-18.0); MEAN CORPUSCULAR HEMOGLOBIN 29 pg (27-31)
[2022-01-07 06:27] LABS: INR 2.4 (0.8-3.0); PROTHROMBIN TIME 26.8 SECONDS (9.7-12.8)
[2022-01-07 06:39] LABS: ANION GAP 13 mmol/L (7-16); CALCIUM 8.6 mg/dL (8.4-10.2); CARBON DIOXIDE 24 mmol/L (23-31); CHLORIDE 100 mmol/L (98-107); CREATININE, serum 4.75 mg/dL (0.72-1.25); GLUCOSE 128 mg/dL (70-99); POTASSIUM 4.7 mmol/L (3.5-4.5); SODIUM 137 mmol/L (136-145)
[2022-01-07 06:41] LABS: BLOOD UREA NITROGEN > 125 mg/dL (8-26)
[2022-01-07 06:54] LABS: TROPONIN-I 0.061 ng/mL (0.00-0.033)
[2022-01-07 08:15] VITALS: BP 113/50; PULSE 70; TEMP 97.5
--- NOTE | 2022-01-07 10:36 | NUR ---
Initial visit; Patient thanked Rehabilitation Program Coordinator for looking in on him and offering prayer, encouragement and God's blessings.
--- NOTE | 2022-01-07 11:29 | NUR ---
COREY met with the patient to discuss discharge plan. The patient lives alone in an apartment in [place]. His in November. He reports independence with ADLs and has a cane, two walkers, and a wheelchair. He has home health services from [facility]. The patient's PCP is Dr. Rosario Sol and he receives his medications from [facility]. The patient has a DPOA-HC in EMR that designates his late . The alternate is his sister, Atiya De Oliveira. The patient states that him and Atiya fell out of touch and do not have a good relationship anymore. He is interested in doing a DPOA-HC, but does not know who he would designate yet. SW provided him with form. The patient is and states that he has two children: Brenda Durham (ph#[phone]) and Frank Bartholomew. He states that he has tried to get in contact with Brenda, but has not had any luck. She lives in [place]. The patient states that he is not even sure if Brenda or Frank are even alive. He does not know where Frank lives and states that he has not been in contact with his children in a long time. COREY informed the patient that his two children are his next of kin. The patient verbalized understanding. He states that he needs some time to think about who he would or could designate as his DPOA-HC. He would like for SW to try and get in touch with Brenda. The patient plans on returning home and resuming home health from [facility] upon discharge. He states that he will need a cab home and that he also utilizes his Medicaid transportation services for rides. COREY attempted to contact [facility]. COREY left them a voicemail and faxed over updates. COREY attempted to contact the patient's daughter, Brenda. COREY left a voicemail. The voicemail did state the phone was for a Brenda. *Discharge plan: home with home health. Patient will need a ride home*
[2022-01-07 11:30] VITALS: BP 118/75; PULSE 70; TEMP 97.7
--- NOTE | 2022-01-07 13:12 | NUR ---
Pt has student nurses caring for patient, pt resting in bed with bumex infusing. Mauricio MACIAS. Pt denies any pain at this time, states pain pills have been helping. Pt chooses not to dress ulcer to L drew. Reports SOB is no different than baseline, currently on RA. POC discussed with patient. Call light within reach.
--- NOTE | 2022-01-07 14:02 | NUR ---
Primary nurse was assisted with [phone] patient care by [employer] student Judith Marcos and [employer] instructor Tati Stewart MSN, RN.
[2022-01-07 16:46] VITALS: BP 122/68; PULSE 70; TEMP 97.6
[2022-01-07 19:24] VITALS: BP 127/65; PULSE 74; TEMP 97.9
[2022-01-07 23:46] VITALS: BP 107/72; PULSE 71; TEMP 97.8
[2022-01-08 04:03] VITALS: BP 107/59; PULSE 71; TEMP 97.8
--- NOTE | 2022-01-08 05:13 | NUR ---
PT HAD UNEVENTFUL NIGHT THIS SHIFT, MEDICATIONS ADMINISTERED ORDERED. PENG C&D, NPO STATUS MAINTAINED. CONSENT IN CHART FOR DC. ALL NEEDS MET THIS SHIFT. CALL LIGHT WITHIN REACH.
[2022-01-08 07:03] LABS: INR 2.4 (0.8-3.0); PROTHROMBIN TIME 26.8 SECONDS (9.7-12.8)
[2022-01-08 07:19] LABS: BASO % 0.6 % (0.0-2.0); EOS # 0.1 K/mm3 (0.0-0.7); EOS % 2.2 % (0.0-4.0); GRAN % 80.6 % (42.2-75.2); LYMPH # 0.4 K/mm3 (1.2-3.4); LYMPH % 8.2 % (20.0-51.0); MEAN CELL VOLUME 93 fl (80.0-100.0); MEAN CORPUSCULAR HGB CONC 31 g/dl (33.0-37.0); MEAN PLATELET VOLUME 12.3 fl (7.4-10.4); MONO # 0.4 K/mm3 (0.1-0.6); MONO % 8.2 % (1.7-9.3); PLATELET COUNT 143 K/mm3 (130-400); RED BLOOD COUNT 3.11 M/mm3 (4.20-5.60); REDCELL DISTRIBUTION WIDTH-CV 17.2 % (11.5-14.5)
[2022-01-08 07:27] LABS: HEMOGLOBIN 9.1 g/dl (13.5-18.0); MEAN CORPUSCULAR HEMOGLOBIN 29 pg (27-31)
[2022-01-08 07:42] LABS: CALCIUM 8.9 mg/dL (8.4-10.2); CREATININE, serum 4.67 mg/dL (0.72-1.25); POTASSIUM 4.4 mmol/L (3.5-4.5)
[2022-01-08 07:51] VITALS: BP 113/55; PULSE 71; TEMP 97.5
[2022-01-08 12:29] VITALS: BP 122/68; PULSE 70; TEMP 97.5
--- NOTE | 2022-01-08 14:01 | NUR ---
Primary nurse was assisted with [phone] patient care by [employer] student Judith Marcos and [employer] instructor Tati Stewart MSN, RN.
[2022-01-08 16:26] VITALS: BP 118/67; PULSE 73; TEMP 97.7
[2022-01-08 16:32] LABS: HEPATITIS B SURFACE ANTIBODY 23.4 (()); HEPATITIS B SURFACE ANTIGEN Negative (Negative)
--- NOTE | 2022-01-08 18:30 | NUR ---
Patient has had an ok day. Scheduled medications given. Shift assessment performed. PRN pain medications given twice this shift for back pain. Patient repositioned as well. Patient's INR elevated, unable to place dialysis cath, will reassess INR in the AM. VSS. Patient A&O. Martínez catheter in place, securment device in place, no kinks in tubing. Patient denies any further pain, discomfort, SOA, or further needs at this time. Call light in reach. Fall percautions in place. Bumex running as ordered.
[2022-01-08 19:48] LABS: HEPATITIS C VIRUS ANTIBODY Reactive (Negative)
[2022-01-08 19:53] VITALS: BP 116/65; PULSE 70; TEMP 97.9
--- NOTE | 2022-01-08 20:46 | NUR ---
PT ARRIVES TO MEDICAL FLOOR ROOM 358 BY EMS AT ABOUT 2000, PT A/OX4, REPORTS SOA, DIZZINESS, NAUSEA, NO EMESIS AT THE MOMENT, SYSTOLIC AT 86 OVER DIASTOLIC 54. PT LIGHTHEADED ON AMBULATION, PT INFORMED TO CALL TO AMBULATE. ASSESMENT COMPLETE. MED REC COMPLETE. PT HAS HOME MEDICATIONS WITH HER. PT INFORMED ON REASON WHY TO NOT TAKE MEDICATION WITHOUT STAFF KNOWING. PT DENIES PAIN AT THIS MOMENT. HOSPITAL POLICY REVIEWED WITH PT. PT VERBALIZES UNDERSTANDING. THIS NURSE WILL CONTINUE TO MONITOR. ALL NEEDS MET AT THIS MOMENT.
[2022-01-08 23:53] VITALS: BP 96/59; PULSE 70; TEMP 98.3
--- NOTE | 2022-01-09 04:26 | NUR ---
PT HAD UNEVENTFUL NIGHT THIS SHIFT, BUMEX CONTINUES TO INFUSE TO LH IV AT 5MG/HR. NPO STATUS MAINTAINED THIS SHIFT. PT INR PENDING FOR PROCEDURE THIS AM. CALL LIGHT WITHIN REACH.
[2022-01-09 04:34] VITALS: BP 118/64; PULSE 70; TEMP 98.1
[2022-01-09 06:24] LABS: BASO % 0.6 % (0.0-2.0); EOS # 0.1 K/mm3 (0.0-0.7); EOS % 2.9 % (0.0-4.0); GRAN # 3.8 K/mm3 (1.4-6.5); GRAN % 77.7 % (42.2-75.2); LYMPH # 0.4 K/mm3 (1.2-3.4); LYMPH % 8.4 % (20.0-51.0); MEAN CELL VOLUME 93 fl (80.0-100.0); MEAN CORPUSCULAR HGB CONC 31 g/dl (33.0-37.0); MEAN PLATELET VOLUME 12.2 fl (7.4-10.4); MONO # 0.5 K/mm3 (0.1-0.6); MONO % 10.2 % (1.7-9.3); PLATELET COUNT 147 K/mm3 (130-400); RED BLOOD COUNT 3.05 M/mm3 (4.20-5.60); REDCELL DISTRIBUTION WIDTH-CV 16.9 % (11.5-14.5)
[2022-01-09 06:27] LABS: INR 1.8 (0.8-3.0); PROTHROMBIN TIME 20.6 SECONDS (9.7-12.8)
[2022-01-09 06:31] LABS: HEMATOCRIT 28.2 % (42.0-52.0); HEMOGLOBIN 8.8 g/dl (13.5-18.0); MEAN CORPUSCULAR HEMOGLOBIN 29 pg (27-31)
[2022-01-09 06:49] LABS: CALCIUM 8.4 mg/dL (8.4-10.2); CREATININE, serum 4.68 mg/dL (0.72-1.25); POTASSIUM 4.2 mmol/L (3.5-4.5)
[2022-01-09 07:30] VITALS: BP 119/63; PULSE 72; TEMP 97.9
--- NOTE | 2022-01-09 08:03 | NUR ---
Scheduled medication given. Shift assessment performed. Skin issues noted in shift assessment. Patient currently on RA. Martínez catheter in place, securment device in place, no kinks in tubing. +2 edema noted on genitalia. Patient NPO for dialysis catheter placement today. PRN pain medication given for 5/10 aching/stabbing pain in patient's back. Patient denies any further pain, discomfort, SOA, or further needs at this time. VSS. Patient A&O. Call light in reach. Fall percautions in place. Bumx gtt running as orderd.
--- NOTE | 2022-01-09 09:04 | NUR ---
Dr. Salmon contacted regarding patient's dialysis catheter placement. Informed that patient's INR is still to high to do procedure. SOPHY Tong informed.
[2022-01-09 11:23] VITALS: BP 118/66; PULSE 70; TEMP 97.9
[2022-01-09 16:18] VITALS: BP 116/66; PULSE 71; TEMP 97.9
--- NOTE | 2022-01-09 17:06 | NUR ---
Patient has had an ok day. PRN pain medication given once this shift. VSS. Patient A&O. Patient rates his back pain a 3/10 aching pain, but denies the need for intervention at this time. Patient denies any further pain, discomfort, SOA, or further needs at this time. Call light in reach. Fall percautions in place.
--- NOTE | 2022-01-09 18:38 | NUR ---
While patient transferring to the BSC, patient recieved a skin tear on RLE. 2 cm in size. Petroleum guaze and mepilex placed on skin tear.
[2022-01-09 20:12] VITALS: BP 115/58; PULSE 70; TEMP 98.2
[2022-01-09 23:42] VITALS: BP 116/64; PULSE 71; TEMP 97.6
[2022-01-10] VITALS (11 sets, daily range): BP systolic 99–126; BP diastolic 53–80; PULSE 69–73; TEMP 97.8–98.4
--- NOTE | 2022-01-10 05:22 | NUR ---
PT HAD UNEVENTFUL NIGHT THIS SHIFT, PENG IN PLACE C&D, NPO STATUS MAINTAINED. ALL NEEDS MET THIS SHIFT. PT CONSENT IN CHART, PT PREPARED FOR TDC PLACEMENT THIS DAY. CALL LIGHT WITHIN REACH.
[2022-01-10 06:47] LABS: INR 1.6 (0.8-3.0); PROTHROMBIN TIME 17.9 SECONDS (9.7-12.8)
[2022-01-10 06:49] LABS: CALCIUM 8.5 mg/dL (8.4-10.2); CREATININE, serum 4.52 mg/dL (0.72-1.25); MAGNESIUM 2.6 mg/dL (1.6-2.6); POTASSIUM 4.1 mmol/L (3.5-4.5)
--- NOTE | 2022-01-10 08:27 | NUR ---
Pt assessment complete. Pt is laying in bed upon entry, he is A/O x4. His breathing is even and unlabored on RA. Pt reports pain to back 8/10, PRN pain medication administered. POC discussed with patient, will have surgery for dialysis catheter placement later this am, pt in agreeance. Martínez DD, clear yellow urine. Heel protectors in place bilaterally. No needs at this time.
--- NOTE | 2022-01-10 09:49 | NUR ---
Pt left for procedure at this time.
--- NOTE | 2022-01-10 19:00 | NUR ---
Bedside shift report received, assumed care for cage shift manager.
--- NOTE | 2022-01-10 19:14 | NUR ---
Pt recovered well from dialysis catheter placement, slight drainage to dressing but does not seem to have grown. Reported pain to back and buttock, up to the chair for a few hours today. Egg crate mattress placed to bed d/t patient not moving much or well. Mauricio MACIAS. Bumex drip infusing.
--- NOTE | 2022-01-10 20:00 | NUR ---
Assessment complete. A&Ox3-drowsy/forgetful. Denies nausea/shortness of breath. C/O pain to right side/lower back-rating pain 6/10 on pain scale. Hydrocodone given per dr order. Dressing to right chest dialysis cath with old drainage noted. TELE reporting V Paced. Left wrist IV with Bumex infusing at 5ml/hr without difficulty. Martínez cath with clear yellow urine. Noted to have a stage 1 pressure ulcer to left buttock. Laceration to back of head-sutures intact-mepilex covering. Scrotum very swollen. Plan of care discussed for this shift to include meds/dialysis/echo in AM/calling for questions/concerns. Verbalizes understanding/denies needs. Call light in reach. Will monitor.
[2022-01-11] VITALS (7 sets, daily range): BP systolic 105–125; BP diastolic 58–72; PULSE 70–71; TEMP 97.6–98.4
--- NOTE | 2022-01-11 00:30 | NUR ---
Resting in bed eyes closed. NO s/s of pain noted.
--- NOTE | 2022-01-11 05:44 | NUR ---
Has had an uneventful night. Received norco x1 for back pain. VS remained stable. Bumex gtt continues @5ml/hr. Denies current needs. Call light in reach. Will monitor.
--- NOTE | 2022-01-11 08:03 | NUR ---
Scheduled medications given. Shift assessment performed. Patient given PRN pain medication for aching back pain rated a 7/10. Patient currently on RA. Bumex gtt DC'd per orders. Martínez catheter in place. Securement device in use, no kinks in tubing. VSS. Patient A&O. Skin issues noted in assessment. Egg crate mattress pad in place. Patient denies any further pain, discomfort, SOA, or further needs at this time. Call light in reach. Fall percautions in place.
[2022-01-11 13:37] LABS: BASO % 0.4 % (0.0-2.0); EOS # 0.1 K/mm3 (0.0-0.7); GRAN # 3.7 K/mm3 (1.4-6.5); GRAN % 80.6 % (42.2-75.2); LYMPH # 0.4 K/mm3 (1.2-3.4); LYMPH % 8.3 % (20.0-51.0); MEAN CELL VOLUME 95 fl (80.0-100.0); MEAN CORPUSCULAR HGB CONC 31 g/dl (33.0-37.0); MEAN PLATELET VOLUME 12.6 fl (7.4-10.4); MONO # 0.4 K/mm3 (0.1-0.6); MONO % 8.5 % (1.7-9.3); PLATELET COUNT 129 K/mm3 (130-400); RED BLOOD COUNT 2.97 M/mm3 (4.20-5.60)
[2022-01-11 13:41] LABS: HEMATOCRIT 28.1 % (42.0-52.0); HEMOGLOBIN 8.8 g/dl (13.5-18.0); MEAN CORPUSCULAR HEMOGLOBIN 30 pg (27-31)
[2022-01-11 13:42] LABS: INR 1.6 (0.8-3.0); PROTHROMBIN TIME 17.5 SECONDS (9.7-12.8)
[2022-01-11 14:00] LABS: CALCIUM 8.5 mg/dL (8.4-10.2); CREATININE, serum 4.54 mg/dL (0.72-1.25); PHOSPHOROUS 7.3 mg/dL (2.3-4.7); POTASSIUM 3.4 mmol/L (3.5-4.5)
--- NOTE | 2022-01-11 15:20 | NUR ---
PATIENT TOLERATED HIS 1ST HD TX, REMOVED 1L OF FLUID. NEXT DIALYSIS TX TOMORROW, Tuesday01/12/22 @ 0830.
--- NOTE | 2022-01-11 16:03 | NUR ---
Patient has had an ok day. Dialysis completed. 1 liter of fluid taken off. Patient tolerated well. Patient c/o being bloated and has been passing a lot of gas. Last BM 01/10/22. Martínez catheter in place. Securement device in use. No kink in tubing. Patient does state that his back is aching. Repositioned onto his side, patient stated that this has helped. Patient denies any further pain, discomfort, SOA, or further needs at this time. Call light in reach. Fall percautions in place.
--- NOTE | 2022-01-11 22:07 | NUR ---
ALERT AND OX3. DENIES CHEST PAIN OR DIZZY. EDEMA TO BILATERAL LOWER EXTR AND SCROTUM, HE STATES SLIGHT IMPROVEMENT. PM MEDS GIVEN, GLUCOSE TX PER ORDER. CALL LIGHT WI REACH. NEEDS MET.
[2022-01-12 03:57] VITALS: BP 118/56; PULSE 71; TEMP 98.1
--- NOTE | 2022-01-12 05:31 | NUR ---
RESTED THROUGH THE NIGHT WITHOUT INCIDENT. PAIN MED NEEDED THIS AM. CALL LIGHT WI REACH.
[2022-01-12 06:35] LABS: BASO % 0.7 % (0.0-2.0); EOS # 0.1 K/mm3 (0.0-0.7); EOS % 2.1 % (0.0-4.0); GRAN # 3.3 K/mm3 (1.4-6.5); GRAN % 79.6 % (42.2-75.2); LYMPH # 0.3 K/mm3 (1.2-3.4); LYMPH % 8.1 % (20.0-51.0); MEAN CELL VOLUME 93 fl (80.0-100.0); MEAN CORPUSCULAR HGB CONC 31 g/dl (33.0-37.0); MEAN PLATELET VOLUME 13.2 fl (7.4-10.4); MONO # 0.4 K/mm3 (0.1-0.6); MONO % 9.3 % (1.7-9.3); PLATELET COUNT 115 K/mm3 (130-400); REDCELL DISTRIBUTION WIDTH-CV 16.9 % (11.5-14.5)
[2022-01-12 06:38] LABS: INR 1.6 (0.8-3.0); PROTHROMBIN TIME 17.6 SECONDS (9.7-12.8)
[2022-01-12 06:39] LABS: HEMATOCRIT 28.8 % (42.0-52.0); HEMOGLOBIN 8.8 g/dl (13.5-18.0); MEAN CORPUSCULAR HEMOGLOBIN 28 pg (27-31)
[2022-01-12 06:46] LABS: CALCIUM 8.3 mg/dL (8.4-10.2); CREATININE, serum 3.8 mg/dL (0.72-1.25); POTASSIUM 3.6 mmol/L (3.5-4.5)
--- NOTE | 2022-01-12 07:48 | NUR ---
Scheduled medications given. Shift assessment performed. Patient currently on RA. Skin issues noted in Shift assessment. Patient states that he is having aching back pain rated a 3/10. States that he does not feel the need for interventions at this time. Martínez catheter in place. Securement device in use. No kinks in tubing. Patient denies any further pain, discomfort, SOA, or needs at this time. Call light in reach. Fall percautions in place. VSS. Patient A&O.
[2022-01-12 08:30] VITALS: BP 106/52; PULSE 69; TEMP 98.6
--- NOTE | 2022-01-12 10:21 | NUR ---
PATIENT TOLERATED HIS 2ND HD TX WITH 2L OF FLUID REMOVED. NEXT PLANNED HD TX TOMORROW, Tuesday01/13/22 @ 0830.
[2022-01-12 10:47] VITALS: BP 108/57; PULSE 50; TEMP 98.2
[2022-01-12 16:58] VITALS: BP 116/61; PULSE 70; TEMP 98
--- NOTE | 2022-01-12 18:33 | NUR ---
Patient has had an ok day. 2L of fluid taken off in dialysis. Patient tolerated well. States that his back pain is at a manageable level at this time. Patient's wallet and checkbook placed in safe at patient's request. VSS. Patient A&O. Patient denies any further pain, discomfort, SOA, or further needs at this time. Call light in reach. Fall percautions in place.
[2022-01-12 19:49] VITALS: BP 131/68; PULSE 70; TEMP 98.5
--- NOTE | 2022-01-12 22:47 | NUR ---
PT VERY DROWSY TONIGHT, SLEPT UNTIL MED PASS/HAVING TO USE COMMODE. UP TO USE W 2 ASST PT IS VERY UNSTEADY AND USES RN'S TO MOVE. ENC OWN MOVEMENT TO GET STRONGER AND OUT OF BED MORE OFTEN. PM MEDS GIVEN, BS TX PER ORDER. PENG TO DD. CALL LIGHT WI REACH.
--- NOTE | 2022-01-12 22:52 | NUR ---
PT WALLET SENT TO SECURITY TO BE LOCKED UP. DAY SHIFT RN BAGGED UP AND SECURED SEALED. THIS RN HANDS IT OVER TO THEM.
[2022-01-12 23:57] VITALS: BP 106/51; PULSE 71; TEMP 98.4
[2022-01-13 04:07] VITALS: BP 109/43; PULSE 70; TEMP 98.3
--- NOTE | 2022-01-13 06:19 | NUR ---
RESTED THROUGH THE NIGHT WITHOUT INCIDENT. CALL LIGHT WI REACH. NEEDS MET.
--- NOTE | 2022-01-13 06:30 | NUR ---
PT REPORT FROM CINTHYA DESIR. THE PATIENT WAS WOKEN UP TO GET 0700 MEDICATION. CALLED FOR BREAKFAST THE PLAN FOR DIALYSIS AT 0830. NO OTHER CONCERNS AT THIS TIME.
[2022-01-13 06:34] LABS: BASO % 0.4 % (0.0-2.0); EOS # 0.1 K/mm3 (0.0-0.7); EOS % 1.7 % (0.0-4.0); GRAN # 3.5 K/mm3 (1.4-6.5); GRAN % 76.5 % (42.2-75.2); LYMPH # 0.4 K/mm3 (1.2-3.4); LYMPH % 9.4 % (20.0-51.0); MEAN CELL VOLUME 95 fl (80.0-100.0); MEAN CORPUSCULAR HGB CONC 31 g/dl (33.0-37.0); MEAN PLATELET VOLUME 13.6 fl (7.4-10.4); MONO # 0.5 K/mm3 (0.1-0.6); MONO % 11.8 % (1.7-9.3); PLATELET COUNT 78 K/mm3 (130-400); RED BLOOD COUNT 3.04 M/mm3 (4.20-5.60)
[2022-01-13 06:58] LABS: HEMATOCRIT 28.9 % (42.0-52.0); HEMOGLOBIN 8.9 g/dl (13.5-18.0); MEAN CORPUSCULAR HEMOGLOBIN 29 pg (27-31)
[2022-01-13 07:00] LABS: CALCIUM 8.2 mg/dL (8.4-10.2); CREATININE, serum 3.27 mg/dL (0.72-1.25); PHOSPHOROUS 4.9 mg/dL (2.3-4.7); POTASSIUM 3.9 mmol/L (3.5-4.5)
[2022-01-13 08:05] VITALS: BP 137/72; PULSE 70; TEMP 97.7
[2022-01-13 08:37] LABS: INR 1.5 (0.8-3.0); PROTHROMBIN TIME 17.1 SECONDS (9.7-12.8)
--- NOTE | 2022-01-13 09:41 | NUR ---
PT IS GETTING UP TO THE CHAIR WITH OT AT THIS TIME. WILL SIT IN RECLINER UNTIL LUNCH, AND THEN ALLOW TO RETURN TO BED FOR JUST AFTER LUNCH. THE PLAN FOR THE AFTERNOON WILL BE CHAIR TO DIALYSIS.
--- NOTE | 2022-01-13 11:07 | NUR ---
Notified that the patient will need assistance with transportation to and from dialysis. At this time, the patient's chair time is unknown. Explored different family/firends that could help with transportation with the family and the patient doesn't have anyone. Encouraged the patient that he has to start working with PT/OT after dialysis. Patient reports that dialysis has been "knocking me down". Educated the patient that is his goal is to return home, he needs to show us that he can safely return home while getting dialysis.
--- NOTE | 2022-01-13 11:29 | NUR ---
PT IS CURRENTLY AT DIALYSIS. PT WAS ABLE TO AMBULATE FROM BED TO RECLINER. HE DID SIT IN THE RECLINER FOR ABOUT AN HOUR AND HALF WHEN CINTHYA GRAF IN DIALYSIS CALLED FOR HIM TO COME THERE. WE TRANSFERRED HIM TO WHEELCHAIR AND TOOK HIM TO DIALYSIS WHERE HE WAS ABLE TO GET UP TO THE STANDING SCALE AND THEN TO THE DIALYSIS CHAIR. THE PATIENT DENIES ANY SEVERE PAIN, BUT DOES COMPLAIN OF THE PAIN OF HIS SEVERELY SWOLLEN SCROTUM. NO OTHER CONCERNS AT THIS TIME.
--- NOTE | 2022-01-13 12:44 | NUR ---
PT AT DIALYSIS AT THIS TIME. UNABLE TO GIVE MEDS PER MAR. WILL GIVE ONCE PATIENT HAS RETURNED. NO OTHER CONCERNS.
[2022-01-13 13:00] VITALS: BP 120/62; PULSE 69; TEMP 98
[2022-01-13 15:01] VITALS: BP 131/77; PULSE 71; TEMP 98
--- NOTE | 2022-01-13 15:01 | NUR ---
PATIENT TOLERATED HIS 3RD HD TX WITH 4L OF FLUID REMOVED. NEXT PLANNED HD TX PENDING LABS & ASSESSMENT. OUTPATIENT DIALYSIS TREATMENTS ARE SCHEDULED ON TUESDAY, TUESDAY & TUESDAY @ 3:45PM @ [facility] IN [place].
[2022-01-13 21:01] VITALS: BP 116/57; PULSE 70; TEMP 97.5
--- NOTE | 2022-01-13 21:29 | NUR ---
PT SLEEPY TONIGHT STATES HE HAD A LONG EVENTFUL DAY BUT IS STARTING TO BE ABLE TO GET UP AND MOVE MORE. SAT IN CHAIR TODAY AND HAD DIALYSIS. PM MEDS GIVEN / STITCHES REMOVED ALONG W STERI STRIP. CLEANED AND DRYED. PT FEELS BETTER. CALL LIGHT WI REACH. NEEDS MET
[2022-01-14] VITALS (7 sets, daily range): BP systolic 93–126; BP diastolic 51–66; PULSE 69–71; TEMP 97.6–98.6
--- NOTE | 2022-01-14 05:56 | NUR ---
RESTED THOUGH THE NIGHT WITHOUT INCIDENT. NEEDS ARE MET.
[2022-01-14 06:06] LABS: BASO % 0.4 % (0.0-2.0); EOS # 0.1 K/mm3 (0.0-0.7); EOS % 1.9 % (0.0-4.0); GRAN # 3.7 K/mm3 (1.4-6.5); GRAN % 76.7 % (42.2-75.2); LYMPH # 0.5 K/mm3 (1.2-3.4); LYMPH % 10.3 % (20.0-51.0); MEAN CELL VOLUME 95 fl (80.0-100.0); MEAN CORPUSCULAR HGB CONC 31 g/dl (33.0-37.0); MEAN PLATELET VOLUME 12.5 fl (7.4-10.4); MONO # 0.5 K/mm3 (0.1-0.6); MONO % 10.5 % (1.7-9.3); PLATELET COUNT 90 K/mm3 (130-400); RED BLOOD COUNT 3.14 M/mm3 (4.20-5.60); REDCELL DISTRIBUTION WIDTH-CV 16.9 % (11.5-14.5)
[2022-01-14 06:10] LABS: HEMATOCRIT 29.9 % (42.0-52.0); HEMOGLOBIN 9.2 g/dl (13.5-18.0); MEAN CORPUSCULAR HEMOGLOBIN 29 pg (27-31)
[2022-01-14 06:23] LABS: CALCIUM 8.5 mg/dL (8.4-10.2); CREATININE, serum 2.63 mg/dL (0.72-1.25); POTASSIUM 3.9 mmol/L (3.5-4.5)
--- NOTE | 2022-01-14 12:31 | NUR ---
PATIENT TOLERATED HD TX WITH 4L OF FLUID OFF. NEXT PLANNED HD TX TOMORROW, Tuesday01/15/22 @ 0830.
[2022-01-14 13:12] LABS: INR 1.5 (0.8-3.0); PROTHROMBIN TIME 16.6 SECONDS (9.7-12.8)
--- NOTE | 2022-01-14 16:19 | NUR ---
Scheduled medications given. Shift assessment performed. Patient had dialysis today. 4L of fluid removed. Patient tolerated procedure well. Patient urine output has been minimal. Urology consulted about missed TURP, and how to proceed. Patient refusing the placement of SCD. Numerous wounds noted on BLE which makes SCD's painful to use. At rest, patient denies any pain, discomfort, or SOA. Denies any further needs at this time. Call light in reach. Fall percautions in place.
[2022-01-15 04:37] VITALS: BP 112/61; PULSE 71; TEMP 98.3
--- NOTE | 2022-01-15 05:05 | NUR ---
PT HAD UNEVENTFUL NIGHT THIS SHIFT, NO CLINICAL CHANGES OVER NIGHT, VSS, 02 ROOM AIR, PT CONTINUES TO C/O PAIN TO BACK, BLE. PT DROWSY AND TIRED. PENG IN PLACE, C&D, ALL NEEDS MET THIS SHIFT. CALL LIGHT WITHIN REACH.
[2022-01-15 06:43] LABS: BASO % 0.6 % (0.0-2.0); EOS # 0.1 K/mm3 (0.0-0.7); EOS % 1.6 % (0.0-4.0); GRAN % 77.2 % (42.2-75.2); LYMPH # 0.5 K/mm3 (1.2-3.4); LYMPH % 10.5 % (20.0-51.0); MEAN CELL VOLUME 92 fl (80.0-100.0); MEAN CORPUSCULAR HGB CONC 31 g/dl (33.0-37.0); MEAN PLATELET VOLUME 12.1 fl (7.4-10.4); MONO # 0.5 K/mm3 (0.1-0.6); MONO % 9.9 % (1.7-9.3); PLATELET COUNT 72 K/mm3 (130-400); RED BLOOD COUNT 3.28 M/mm3 (4.20-5.60); REDCELL DISTRIBUTION WIDTH-CV 16.9 % (11.5-14.5)
[2022-01-15 06:48] LABS: HEMATOCRIT 30.3 % (42.0-52.0); HEMOGLOBIN 9.4 g/dl (13.5-18.0); MEAN CORPUSCULAR HEMOGLOBIN 29 pg (27-31)
[2022-01-15 06:58] LABS: CALCIUM 8.6 mg/dL (8.4-10.2); CREATININE, serum 2.51 mg/dL (0.72-1.25); POTASSIUM 4.1 mmol/L (3.5-4.5)
[2022-01-15 08:02] VITALS: BP 118/60; PULSE 70; TEMP 98.2
--- NOTE | 2022-01-15 08:45 | NUR ---
PT WHEELED OFF UNIT FOR DIALYSIS.
[2022-01-15] MEDS ORDERED: SYNTHROID0.05 MG/TA PO (10:00)
[2022-01-15] MEDS ORDERED: PHOSLO667 MG PO (10:19)
[2022-01-15] MEDS ORDERED: LANOXIN 0.120.125 MG PO (10:27)
[2022-01-15] MEDS ORDERED: DEMADEX 20MG20 M1 PO (10:42)
--- NOTE | 2022-01-15 10:43 | NUR ---
PT ALERT AND ORIENTED UPON ENTRY THIS MORNING. RESTING COMFORTABLE IN BED EATING BREAKFAST. CALM AND COOPERATIVE. DENIES PAIN. ADMINISTERED MEDICATIONS AND EDUCATED ON PURPOSES. PT REPORTS NO QUESTIONS. BREATH SOUNDS CLEAR. ASSESSED STG 2 PRESSURE WOUND ON LEFT BOX. OPEN TO AIR, NO DRAINAGE, PT REPORTS NO PAIN AT THE SITE. STG 2 WOUND ON RIGHT BUTTOCK COVERED. VITALS AND BLOOD SUGAR ARE STABLE. WILL CONTINUE TO MONITOR. PT WHEELED TO DIAYLSIS AROUND 0845. NO CONCERNS AT THIS TIME.
--- NOTE | 2022-01-15 11:43 | NUR ---
PATIENT TOLERATED HIS 5TH HD TX WITH 4L OF FLUID REMOVED. NEXT PLANNED HD TX ON Tuesday01/18/22 @ 1545 @ [facility] IN [place].
[2022-01-15 12:16] VITALS: BP 122/71; PULSE 72; TEMP 98.6
--- NOTE | 2022-01-15 12:40 | NUR ---
PT RETURNED FROM DIALYSIS AROUND 1200. BP IS 121/86, 73 HR, AND 93% ON ROOM AIR. RESTING UP IN CHAIR.
[2022-01-15 12:41] VITALS: BP 121/86; PULSE 73
--- NOTE | 2022-01-15 15:55 | NUR ---
Met with patient and arranged transportation with him on Tuesday through his insurance. BEAN Hurtado requests that the patient call on Tuesday and confirm ride for Tuesday. Provided patient with phone number for BEAN Hurtado and provided detailed instructions for him. Darlene with dialysis notified as she had called me questioning it.
--- NOTE | 2022-01-15 16:35 | NUR ---
SECURITY RETURNED THE PT'S LOCKED WALLET AND CHECK BOOK TO THE UNIT. I REVIEWED THE CONTENTS WITH THE PT AND RETURNED THEM TO THE PT. I WHEELED THE PT OFF THE UNIT AT 1635 OUT TO THE ED ENTRANCE WHERE HE WAS PICKED UP BY THE TAXI VAN. WE HANDED THE TAXI VOUCHER TO THE CANVAS SHOP LABORER AND PUT THE PT'S BELONGINGS IN THE VAN WITH HIM TO GO.
--- NOTE | 2022-01-18 09:46 | NUR ---
humidifier maintenance worker contacted [facility] and confirmed they received orders on 01/15/2022. Worker faxed history and phyical and discharge summary information as well as orders to [facility].
--- NOTE | 2022-01-19 13:13 | NUR ---
Per [facility], initial referral did not go through. Patient's information refaxed to [facility]. Phone call made to agency to be on the look out for fax.
== END 2022-01-15 16:35 | disposition home health service (06) | DRG 673 ==
LOC: COL.ER 10:18 → MEDICAL 12:56
PROVIDERS: Internal Medicine Nephrology; Nurse Practitioner; Physician Assistant; Student in an Organized Health Care Education/Training Program; Surgery; ADMIT Internal Medicine
PROC: 02HV33Z Insertion of Infusion Device into Superior Vena Cava, Percutaneous Approach (ICD-10-PCS; 2022-01-10)
PROC: 5A1D70Z Performance of Urinary Filtration, Intermittent, Less than 6 Hours Per Day (ICD-10-PCS; 2022-01-10)
PROC: 0JH63XZ Insertion of Tunneled Vascular Access Device into Chest Subcutaneous Tissue and Fascia, Percutaneous Approach (ICD-10-PCS; principal; 2022-01-10 11:00)
DX: N17.9 Acute kidney failure, unspecified (principal); J96.21 Acute and chronic respiratory failure with hypoxia; I50.22 Chronic systolic (congestive) heart failure; L03.116 Cellulitis of left lower limb; L03.115 Cellulitis of right lower limb; I13.2 Hypertensive heart and chronic kidney disease with heart failure and with stage 5 chronic kidney disease, or end stage renal disease; N18.6 End stage renal disease; I25.10 Atherosclerotic heart disease of native coronary artery without angina pectoris; E78.5 Hyperlipidemia, unspecified; I35.0 Nonrheumatic aortic (valve) stenosis; I48.91 Unspecified atrial fibrillation; J44.9 Chronic obstructive pulmonary disease, unspecified; E11.22 Type 2 diabetes mellitus with diabetic chronic kidney disease; N40.1 Benign prostatic hyperplasia with lower urinary tract symptoms; R33.8 Other retention of urine; G47.00 Insomnia, unspecified; E03.9 Hypothyroidism, unspecified; E87.5 Hyperkalemia; I27.20 Pulmonary hypertension, unspecified; E83.39 Other disorders of phosphorus metabolism; D63.1 Anemia in chronic kidney disease; D69.6 Thrombocytopenia, unspecified; Z96.652 Presence of left artificial knee joint; Z20.822 Contact with and (suspected) exposure to COVID-19; Z95.0 Presence of cardiac pacemaker; Z87.891 Personal history of nicotine dependence; Z79.01 Long term (current) use of anticoagulants; Z79.82 Long term (current) use of aspirin
CPT/HCPCS: 87522; 99223-AI; 99232-AI; 99233-AI; 99239; J1644; J1815; J2704; J3010; J7030; Q5105

== ENCOUNTER 2022-02-11 06:10 | Inpatient (IN) | payer MEDICARE, MEDICAID ==
[~2022-02-11] VITALS: Ht 177.8 cm; Wt 95.7 kg
[~2022-02-11 06:10] MED LIST changes: +COUMADIN 1MG1 MG/TAB PO; +LANOXIN 0.120.125 MG PO; +PHOSLO667 MG PO; +SYNTHROID0.05 MG/TA PO
[2022-02-11 07:30] LABS: HEMOGLOBIN 10.2 g/dl (13.5-18.0); MEAN CELL VOLUME 91 fl (80.0-100.0); MEAN CORPUSCULAR HEMOGLOBIN 28 pg (27-31); MEAN CORPUSCULAR HGB CONC 31 g/dl (33.0-37.0); MEAN PLATELET VOLUME 13.3 fl (7.4-10.4); PLATELET COUNT 79 K/mm3 (130-400); RED BLOOD COUNT 3.64 M/mm3 (4.20-5.60); REDCELL DISTRIBUTION WIDTH-CV 17.1 % (11.5-14.5)
[2022-02-11 07:31] LABS: HEMATOCRIT 33.1 % (42.0-52.0)
[2022-02-11 07:36] LABS: INR 1.5 (0.8-3.0); PROTHROMBIN TIME 17.2 SECONDS (9.7-12.8)
[2022-02-11 07:42] VITALS: BP 138/77; PULSE 70; TEMP 98
[2022-02-11 07:44] LABS: CREATININE, serum 2.12 mg/dL (0.72-1.25); POTASSIUM 4.5 mmol/L (3.5-4.5)
[2022-02-11] MEDS ORDERED: DEMADEX 20MG20 M1 PO (08:16)
[2022-02-11] MEDS ORDERED: DIPROSONE CR 45GM TP (08:18)
[2022-02-11] MEDS ORDERED: BALANCE OF NATURE PO (08:19)
[2022-02-11] MEDS ORDERED: TYLENOL 500MG500 MG PO (08:21)
--- NOTE | 2022-02-11 08:30 | NUR ---
Dr. Johnson here and talks with the patient re: lab work and need to cancel surgery for today and will reschedule for 02/12/2022. Dr. Johnson talked to Dr. Rodriguez and he will consult re: need for dialysis. Patient does dialysis on Tuesday, Tuesday, and Fridays.
--- NOTE | 2022-02-11 11:01 | NUR ---
Report called to Anne MENDES. Patient stands and transfers from cart to recliner with standby assist. All personal belongings placed on hospital bed. Noted large dressing across the buttocks. Patient states that [facility] comes and does wound care and changes the dressing. This was reported to receiving nurse.
--- NOTE | 2022-02-11 11:07 | NUR ---
Patient transferred per bed to room 348 and surgery is planned for 02/12/2022.
--- NOTE | 2022-02-11 11:22 | NUR ---
PT ARRIVES FROM AMBULATORY @ 1105, A&O X3, USING HIS CELL PHONE. PT USES ET GETS WOUND CARE @ HOME. SKIN WILL BE ASSESSED ET DRESSINGS WILL BE CHANGED ON COCCYX ET LEFT BOX. DIALYSIS NURSE HOMAR NOTIFIED OF PT ARRIVAL, WILL PLAN FOR DIALYSIS @ 1300. WILL WAIT TO GIVE TORSEMIDE @ THIS TIME.
[2022-02-11 12:00] VITALS: BP 133/75; PULSE 70; TEMP 97.8
--- NOTE | 2022-02-11 12:18 | NUR ---
MEPILEX DRESSINGS CHANGED ON PT'S COCCYX ET LEFT BOX.
[2022-02-11 15:38] VITALS: BP 114/72; PULSE 78; TEMP 97.9
--- NOTE | 2022-02-11 15:40 | NUR ---
PT IS BACK TO ROOM FROM DIALYSIS. STANDBY ASSISTANCE USED FROM WC TO BED.
[2022-02-11 15:49] VITALS: BP 128/66; PULSE 70; TEMP 97.9
--- NOTE | 2022-02-11 18:22 | NUR ---
PT HAS DONE WELL THIS AFTERNOON, HAS BEEN TALKING ON HIS CELLPHONE FREQUENTLY, DENIES PAIN, HAS EATEN WELL. PLATELETS ARE TO BE GIVEN @ 1000 TOMORROW. RESPIRATIONS UNLABORED. CALL LIGHT WITHIN REACH.
[2022-02-11 20:09] VITALS: BP 130/73; PULSE 70; TEMP 98.9
--- NOTE | 2022-02-11 20:50 | NUR ---
Pt. sitting up in bed. Pt. is A&OX3, assessment complete. INT to lt. hand patent. Pt. reports pain to back at a 4 on pain scale, giving Tylenol per pt. request. Pt. denies further needs, call light within reach.
[2022-02-12] VITALS (19 sets, daily range): BP systolic 100–148; BP diastolic 45–86; PULSE 69–91; TEMP 97.4–99.2
--- NOTE | 2022-02-12 05:29 | NUR ---
Pt. had a low 02, order received for O2, O2 improved, see mar.
[2022-02-12 06:24] LABS: INR 1.4 (0.8-3.0); PROTHROMBIN TIME 15.5 SECONDS (9.7-12.8)
--- NOTE | 2022-02-12 09:49 | NUR ---
Breaker Oiler met with patient to discuss discharge planning. Patient lives alone in [place] and reports his recently. Patient sees Dr. Sol for primary care and has medications delivered to his home by [facility]. Patient reports no difficulties paying for his medications. Patient has a cane and two walkers at home and is normally independent with ADLS. Patient reports he has [facility] services at this time. SW reviewed patient's current Advance Directives which list his late , Arlene. Patient states he thinks he completed a new DPOA-HC designating his friend, Vamsi Arenas (ph#[phone]). SW contacted Dr. Sol office and they did not have any Advance Directives for patient. COREY then contacted Vamsi who advised patient had started to fill out the form, but did not actually complete it. COREY followed up with patient who would like to complete the form now, designating his friend Vamsi. Patient did not want to list an alternate agent. COREY assisted patient in completing the fomr, then COREY and COREY Parra provided witness signatures. COREY placed copy of form in patient's chart then provided original and copies to patient. COREY contacted [facility] and faxed clinical updates. Discharge Plan: Home
--- NOTE | 2022-02-12 10:27 | NUR ---
Initial visit; Patient thanked Package Center Supervisor for looking in on him and keeping him in her prayers.
--- NOTE | 2022-02-12 10:48 | NUR ---
PLATELET TRANSFUSION HAS BEEN STARTED, PT TOLERATING WELL. THIS NURSE STAYED WITH PT THE FIRST 15 MINUTES OF TRANSFUSION. RATE HAS BEEN INCREASED TO 120 ML/HR. PT SLEEPING BUT AROUSES EASILY. O2 ON @ 2L NC. CALL LIGHT WITHIN REACH.
--- NOTE | 2022-02-12 11:40 | NUR ---
MEPILEX DRESSING CHANGED ON PT'S COCCYX ET LEFT BOX PER ORDERS. BANDAID ON PT'S LEFT FA ALSO REMOVED. PT STATES THAT THERE HAD BEEN A SKIN TEAR THERE A FEW DAYS AGO. SKIN APPEARS CRUSTED OVER ET BRUISED. BANDAGE IS LEFT OFF. PLATELETS STILL TRANSFUSING @ 200 ML/HR, PT TOLERATING WELL.
[2022-02-12 12:14] LABS: BASO % 0.8 % (0.0-2.0); EOS # 0.1 K/mm3 (0.0-0.7); EOS % 2.5 % (0.0-4.0); GRAN # 3.9 K/mm3 (1.4-6.5); GRAN % 75.5 % (42.2-75.2); LYMPH # 0.6 K/mm3 (1.2-3.4); LYMPH % 12.1 % (20.0-51.0); MEAN CELL VOLUME 92 fl (80.0-100.0); MEAN CORPUSCULAR HGB CONC 30 g/dl (33.0-37.0); MEAN PLATELET VOLUME 13.6 fl (7.4-10.4); MONO # 0.5 K/mm3 (0.1-0.6); MONO % 8.9 % (1.7-9.3); PLATELET COUNT 82 K/mm3 (130-400); RED BLOOD COUNT 3.26 M/mm3 (4.20-5.60); REDCELL DISTRIBUTION WIDTH-CV 17.1 % (11.5-14.5)
[2022-02-12 12:15] LABS: HEMOGLOBIN 9.1 g/dl (13.5-18.0); MEAN CORPUSCULAR HEMOGLOBIN 28 pg (27-31)
--- NOTE | 2022-02-12 12:41 | NUR ---
PT TAKEN TO SURGERY @ THIS TIME.
--- NOTE | 2022-02-12 15:22 | NUR ---
PT ARRIVES TO ROOM FROM PACU @ 7770. PT IS A&O X3. CBI RUNNING @ A SLOW RATE WITH CLEAR PINK URINE IN PENG BAG. IVF INFUSING INTO RIGHT HAND. PT EATS JELLO ET DRINKS WATER WITH NO PROBLEMS, STATES HE IS HUNGRY, DIET ADVANCED.
--- NOTE | 2022-02-12 18:00 | NUR ---
PT HAS DONE WELL, POST OP IVF INFUSING, DENIES PAIN OR DISCOMFORT. CBI RUNNING @ SLOW RATE, OUTPUT IS CLEAR LIGHT PINK. PENG CATHTER IN PLACE.
--- NOTE | 2022-02-12 21:49 | NUR ---
Patient assessed around 2100. Alert and oriented, and able to make needs known. Reported level 5 pain to back, and given PRN Percocet as requested. Peripheral INT to left hand. Denies SOB and dyspnea. On oxygen at 3 L/min via NC. LS fine crackles in upper lobes, diminished in lower. HRR. BSAx4. Indwelling garcía catheter. Patient has CBI running, with pink output. Does have small clots present. So far no hand irrigation has been required. Patient has scrotal edema. catheter care provided. 1+ edemema BLE. Discoloration to BLE. Dressing to ulcer on left drew CDI. Dressing to uler on bottom CDI. Patient voices no questions, needs, or concerns at this time. In bed with call light within reach. Bed alarm on.
[2022-02-13] VITALS (9 sets, daily range): BP systolic 11–124; BP diastolic 56–70; PULSE 58–75; TEMP 97.8–99
--- NOTE | 2022-02-13 06:27 | NUR ---
Patient continues on CBI, running slow. Urine output pink and clear. Only a few small clots noted throughout the night. Had been given PRN pain medication at HS, but has denied having pain and discomfort since. In bed with call light within reach.
--- NOTE | 2022-02-13 11:31 | NUR ---
PT AT DIALYSIS AT THIS TIME. WILL RECIEVE 1 UNIT PLASMA AT END OF DILYSIS. DR. FONTAINE IN TO SEE PT. PLAN ON DISCHARGE TOMMORROW.
--- NOTE | 2022-02-13 12:21 | NUR ---
PT IN DIALYSIS AT THIS TIME.
--- NOTE | 2022-02-13 14:09 | NUR ---
PATIENT TOLERATED HD TX WITH 1L OF FLUID REMOVED. NEXT PLANNED HD TX ON Tuesday02/15/22 @ [facility] IN [place] CHAIRTIME 1430.
--- NOTE | 2022-02-13 16:07 | NUR ---
PT COMPLETED DIALYSIS, RETURNED TO ROOM ATE LUNCH, PT WAS ASSISTED WITH ORAL HYGIENE. DENTURES BRUSHED.
--- NOTE | 2022-02-13 17:16 | NUR ---
PTS URINE HAS BECOME BLOODY THIS PM AFTER DIALYSIS. INCREASED CBI AND URINE IS CLEARING UP.
--- NOTE | 2022-02-13 17:17 | NUR ---
PT RECIEVED 1 UNIT OF PLASMA DURING DIALYISIS TODAY.
--- NOTE | 2022-02-14 00:35 | NUR ---
PATIENT ALERT AND ORIENTED. CBI RUNNING MODERATELY FAST WITH PINK OUTPUT. C/O LEAKING AROUND CATHETER SITE. MEDICATIONS ADMINISTERED PER EMAR. MEPILEX TO L BOX AND COCCYX.
[2022-02-14 03:48] VITALS: BP 130/73; PULSE 72; TEMP 98.8
--- NOTE | 2022-02-14 05:52 | NUR ---
PRIME AND PULL THIS AM. CBI WAS RUNNING MODERATE SPEED WITH PINK OUTPUT. DISCUSSED PROCESS WITH PATIENT. PENG CLAMPED. INSTILLED ROUGHLY 150 MLS FROM CBI BAG INTO BLADDER, PATIENT STATED HE WAS EXTREMELY UNCOMFORTABLE. CBI CLAMPED. ROUGHLY 30 MLS REMOVED FROM BALLOON. PENG REMOVED, BALLOON INTACT. PATIENT VOIDED 50 MLS OF BLOODY URINE INTO A URINAL. 6 CUP ROUTINE STARTED. ENCOURAGED FLUIDS. URINAL IN REACH.
[2022-02-14 07:36] VITALS: BP 128/65; PULSE 70; TEMP 98.5
--- NOTE | 2022-02-14 11:02 | NUR ---
PT WORKING ON 6 BTL. HAS VOIDED X3. URINE IN GETTING DARKER FROM INITIAL VOID AFTER REMOVING PENG. PT IS A/O X4, SBA X1. PT VOIDING IN URINAL. DIALYSIS ON MWF OUTPATIENT.
[2022-02-14 11:34] VITALS: BP 121/63; PULSE 65; TEMP 98.3
[2022-02-14 15:28] VITALS: BP 114/54; PULSE 80; TEMP 98.4
[2022-02-14 19:20] VITALS: BP 128/76; PULSE 70; TEMP 97.9
--- NOTE | 2022-02-14 21:30 | NUR ---
Patient is resting in bed, alert and oriented x 4, VSS. Continues with dark bloody urine output. Denies pain. Assessment completed, meds provided. No other needs at this time. Call vero major.
[2022-02-14 23:29] VITALS: BP 116/63; PULSE 72; TEMP 98.9
[2022-02-15 03:37] VITALS: BP 135/78; PULSE 70; TEMP 99
[2022-02-15 06:37] LABS: INR 1.3 (0.8-3.0); PROTHROMBIN TIME 14.2 SECONDS (9.7-12.8)
[2022-02-15 06:38] LABS: BASO # 0.1 K/mm3 (0.0-0.2); BASO % 0.9 % (0.0-2.0); EOS # 0.1 K/mm3 (0.0-0.7); EOS % 2.3 % (0.0-4.0); GRAN # 4.4 K/mm3 (1.4-6.5); GRAN % 76.5 % (42.2-75.2); LYMPH # 0.6 K/mm3 (1.2-3.4); LYMPH % 9.9 % (20.0-51.0); MEAN CELL VOLUME 91 fl (80.0-100.0); MEAN CORPUSCULAR HGB CONC 31 g/dl (33.0-37.0); MEAN PLATELET VOLUME 12.1 fl (7.4-10.4); MONO # 0.6 K/mm3 (0.1-0.6); MONO % 10.1 % (1.7-9.3); PLATELET COUNT 91 K/mm3 (130-400); RED BLOOD COUNT 3.47 M/mm3 (4.20-5.60); REDCELL DISTRIBUTION WIDTH-CV 16.8 % (11.5-14.5)
[2022-02-15 06:44] LABS: CALCIUM 8.2 mg/dL (8.4-10.2); CREATININE, serum 3.37 mg/dL (0.72-1.25); POTASSIUM 4.9 mmol/L (3.5-4.5)
[2022-02-15 06:47] LABS: HEMATOCRIT 31.4 % (42.0-52.0); HEMOGLOBIN 9.7 g/dl (13.5-18.0); MEAN CORPUSCULAR HEMOGLOBIN 28 pg (27-31)
--- NOTE | 2022-02-15 07:09 | NUR ---
Patient asked once for tylenol. He continues with blood in urine. No cloths noted. Report will be given to day RN.
[2022-02-15 07:15] VITALS: BP 127/73; PULSE 70; TEMP 98.7
--- NOTE | 2022-02-15 11:13 | NUR ---
Patient tolerated HD tx with 4.1L of fluid removed. Possible next treatment tomorrow, Tuesday02/16/22 @ 0830 pending assessment.
[2022-02-15 11:36] VITALS: BP 129/75; PULSE 72; TEMP 98.5
--- NOTE | 2022-02-15 12:54 | NUR ---
Patient has returned from dialysis. Miralax and colace per patient request. Clarified ordered for demedex, only to give on non dialysis days. Patient ordering lunch. I did speak with karen moreno who wanted us to know they will trasport patient on discharge.
--- NOTE | 2022-02-15 13:45 | NUR ---
Patient sleeping soundly.
--- NOTE | 2022-02-15 14:45 | NUR ---
[employer] Tung[employer] Arc collaborated with RN who advised PT/OT to be ordered by SRAVANI Hughes.
--- NOTE | 2022-02-15 14:45 | NUR ---
Patient up to the bathroom. He voided. Clots noted in the urinal. Patient also missed toliet and voided onto the floor, very dark older looking blood tinged urine. unable to accuratly measure the urine. notified & made aware, he will be around to see patient.
[2022-02-15 16:00] VITALS: BP 124/63; PULSE 71; TEMP 97.4
--- NOTE | 2022-02-15 17:08 | NUR ---
Patient upset with staff. He is requesting to have his stool digitally removed, He was able to get some stool out after suppositiory was given. Patient was also given MOM. Patient was provided with gloves and lubricating jelly and he attempted to digitally remove stool himself. He continues to void dark blood tinged urine. Will monitor.
--- NOTE | 2022-02-15 18:42 | NUR ---
Patient up to the bathroom & able to have a BM. Patient relieved & feeling much better. Dinner ordered. Npo at midnight. Report to Rochelle who will resume cares.
[2022-02-15 20:36] VITALS: BP 130/67; PULSE 69; TEMP 98.2
[2022-02-15 23:35] VITALS: BP 135/70; PULSE 70; TEMP 98.2
[2022-02-16] VITALS (11 sets, daily range): BP systolic 107–137; BP diastolic 49–96; PULSE 68–73; TEMP 97.1–99
--- NOTE | 2022-02-16 00:23 | NUR ---
Patient assessed around 1954. Alert and oriented, and able to make needs known. Denies having pain and discomfort at this time. Peripheral INT to left hand. Denies SOB and dyspnea. On oxygen at 0.5 L/min via NC. LS CTA in upper lobes, diminished in lower. HRR. Capillary refill less than 3 seconds. Non-tenting skin turgor. BSAx4. Mepilex to left drew CDI. Voices no questions, needs, or concerns at this time. In bed with call light within reach. Bed alarm on.
--- NOTE | 2022-02-16 05:46 | NUR ---
Patient had large BM this shift. Urine tea-colored, no clots noted. Given PRN APAP once this shift for back pain as requested. Voices no further questions, needs, or concerns at this time. In bed with call light within reach.
--- NOTE | 2022-02-16 10:08 | NUR ---
PT LAYING SUPINE IN BED. PT STATES THAT HE NEEDS TO VOID. PT WAS ABLE TO STAND UP AND VOID 50ML OF DARK URINE. PT STATES THAT HIS PAIN IS "OK RIGHT NOW, I JUST HAD TYLENOL A LITTLE BIT AGO." PT STATES NO NEEDS AT THIS TIME.CALL LIGHT IS WITHIN REACH.
--- NOTE | 2022-02-16 10:21 | NUR ---
RN notified Platform Software Engineer that Christie with [employer] (#[phone]) will provide a ride home for patient at time of discharge. Patient was upgraded to inpatient status so SW met with patient to present and review IM form. Patient verbalized understanding of his rights and provided signature. SW placed form in chart and provided copy to patient.
--- NOTE | 2022-02-16 15:08 | NUR ---
PT OFF FLOOR FOR PROCEDURE
--- NOTE | 2022-02-16 16:58 | NUR ---
PT RETURNED TO FLOOR FROM PROCEDURE. PT ON 2 LITS VIA NC. CBI IS GOING AND PENG IS DRAINING AT BEDSIDE. CLEAR LIGHT YELLOW URINE. PT STATES NO PAIN BUT IS REALLY HUNGRY AND WANTS SOME FOOD. ASSITED PT TO ORDER DINNER. PT STATES NO OTHER NEEDS AT THIS TIME. CALL LIGHT IS WITHIN REACH.
--- NOTE | 2022-02-16 17:17 | NUR ---
SPOKE TO LEODAN ANIMAL LABORATORY TECHNICIAN. SHE STATES TO DC IV FLUIDS NOW SO NOT TO FLUID OVERLOAD PT. ALSO INFORMED HER THAT PT IS WANTING TO HAVE A REGULAR DIET AND IS SO HUNGRY AND DOESN'T LIKE THE FOOD ON THE RENAL DIET. LEODAN STATES THAT PT CAN HAVE A REGULAR DIET FOR DINNER TONIGHT ONLY AND THEN START BACK ON DIALYSIS DIET FOR BREAKFAST IN THE AM. ORDERS WERE PUT IN AND PT WAS INFORMED.
--- NOTE | 2022-02-16 18:38 | NUR ---
PT SITTING UP IN BED EATING DINNER. NO NEEDS ARE EXPRESSED AT THIS TIME. PT STATES HE IS NOT HAVING ANY PAIN. CBI CONTINUES. PENG IS DRAINING CLEAR YELLOW URINE AT BEDSIDE. CALL LIGHT IS WITHIN REACH.
[2022-02-17 00:48] VITALS: BP 130/76; PULSE 70; TEMP 98.6
--- NOTE | 2022-02-17 01:02 | NUR ---
Patient assessed around 2029. Denies pain and discomfort. Peripheral IV to left hand leaking. Has Pattern Hanger start new one to left forearm. IV fluids running per orders. Continues on CBI, running very slow, with clear yellow output. Voices no questions, needs, or concerns at this time. In bed with call light within reach.
[2022-02-17 04:28] VITALS: BP 123/63; PULSE 69; TEMP 98.7
--- NOTE | 2022-02-17 05:52 | NUR ---
Patient has denied having pain and discomfort this shift. CBI ran slowly throughout the night. Urine clear and yellow. No hematuria or clots noted this shift. Voices no questions, needs, or concerns at this time. In bed with call light within reach.
[2022-02-17 08:13] VITALS: BP 112/65; PULSE 76; TEMP 98.6
[2022-02-17 09:33] LABS: MEAN CELL VOLUME 92 fl (80.0-100.0); MEAN CORPUSCULAR HGB CONC 31 g/dl (33.0-37.0); PLATELET COUNT 103 K/mm3 (130-400); RED BLOOD COUNT 3.26 M/mm3 (4.20-5.60)
[2022-02-17 09:36] LABS: HEMATOCRIT 29.9 % (42.0-52.0); HEMOGLOBIN 9.2 g/dl (13.5-18.0); MEAN CORPUSCULAR HEMOGLOBIN 28 pg (27-31)
--- NOTE | 2022-02-17 09:45 | NUR ---
PT TO DIALYSIS THIS AM. ASSESSMENTS COMPLETE PRIOR TO GOING TO DIALYSIS THIS AM. PT EATING AND DRINKING. CBI RUNNING SLOWLY.
[2022-02-17 09:46] LABS: ALBUMIN 3.1 gm/dL (3.4-4.8); CALCIUM 8.3 mg/dL (8.4-10.2); CREATININE, serum 3.51 mg/dL (0.72-1.25); PHOSPHOROUS 5.1 mg/dL (2.3-4.7); POTASSIUM 5.3 mmol/L (3.5-4.5)
[2022-02-17 09:53] LABS: BAND 1 % (0-10); LYMPHOCYTE 3 % (20.0-51.0); NEUTROPHILS 89 % (42.0-75.2)
[2022-02-17 09:54] LABS: HYPOCHROMIA 3+; MICROCYTOSIS 1+; OVALOCYTES 1+; POIKILOCYTOSIS 2+; SCHISTOCYTES 1+; TEAR DROP CELLS 1+
[2022-02-17 09:55] LABS: PLATELET ESTIMATE DECREASED (NORMAL)
--- NOTE | 2022-02-17 12:02 | NUR ---
PATIENT TOLERATED HD TX WITH 4.2L OF FLUID REMOVED. NEXT PLANNED HD TX ON Tuesday01/19/22 @ 0830.
[2022-02-17 12:25] VITALS: BP 117/76; PULSE 76; TEMP 97.7
[2022-02-17 15:59] VITALS: BP 131/77; PULSE 70; TEMP 98.7
--- NOTE | 2022-02-17 16:14 | NUR ---
PRIMED AND PULLED CBI PENG. PROVIDED EDUCATION ON 6 BTL ROUTINE.,
[2022-02-17 20:12] VITALS: BP 104/54; PULSE 74; TEMP 98.5
--- NOTE | 2022-02-17 22:00 | NUR ---
Pt. sitting up in bed. Pt. is A&OX3, assessment complete. INt to lt. forearm patent. Pt. denies pain. Pt. doing 6 bottle routine at this time, urine is marika at this time.
[2022-02-18 00:44] VITALS: BP 123/72; PULSE 72; TEMP 98.5
[2022-02-18 03:12] VITALS: BP 133/71; PULSE 72; TEMP 98.1
[2022-02-18 07:30] VITALS: BP 123/68; PULSE 70; TEMP 97.8
--- NOTE | 2022-02-18 11:30 | NUR ---
pt walk lasted about 2 mins, not tolerating a lot of movement. pt did desaturate to 88% but quickly came up when walk was over to 92-94%.
[2022-02-18 12:00] VITALS: BP 117/66; PULSE 71; TEMP 98.9
--- NOTE | 2022-02-18 12:53 | NUR ---
Follow-up visit; Patient thanked Divinity Professor for stopping by and wishing him well before he was discharged.
--- NOTE | 2022-02-18 16:06 | NUR ---
Swimming Coach notified by RN that plan is for patient to discharge home today. COREY collaborated with Ellen, Nurse Practitioner who advised she would order exercise oximetry to deterime if patient needed oxygen at time of discharge. COREY also requested Home Health orders. COREY spoke with RT who completed exercise oximetry and patient does not qualify for home oxygen. COREY met with patient and presented IM form. Patient verbalized understanding and provided signature. COREY placed form in chart then provided copy to patient. COREY contacted [facility] to notify them of discharge. COREY will fax orders once they are completed. Discharge Plan: Home with [facility]
--- NOTE | 2022-02-18 16:31 | NUR ---
CONTACTED DR. RAZO FOR DISCHARGE MED ORDERS X2. NO ORDERS AT THIS TIME.
--- NOTE | 2022-02-18 17:02 | NUR ---
DISCHARGE INSTRUCTIONS REVIEWED WITH PATIENT. INSTRUCTED TO HOLD COUMADIN UNTIL FOLLOW UP WITH DR. RAZO OR HIS OFFICE. PT LEFT TO [facility] PER WHEEL CHAIR.
--- NOTE | 2022-02-19 11:09 | NUR ---
Supervisor Pleating faxed discharge orders to [facility].
== END 2022-02-18 17:04 | disposition home or self-care (01) | DRG 713 ==
LOC: SDCO 06:10 → SURG 11:05 → SDCO 18:00 → SURG 02-12 13:28 → MEDICAL 02-17 10:54 → SURG 02-17 10:54
PROVIDERS: Internal Medicine Nephrology; Nurse Anesthetist, Certified Registered; Nurse Practitioner; Registered Nurse; ADMIT Urology
PROC: 0VT08ZZ Resection of Prostate, Via Natural or Artificial Opening Endoscopic (ICD-10-PCS; principal; 2022-02-12 13:00)
PROC: 5A1D70Z Performance of Urinary Filtration, Intermittent, Less than 6 Hours Per Day (ICD-10-PCS; 2022-02-13)
PROC: 0TCB8ZZ Extirpation of Matter from Bladder, Via Natural or Artificial Opening Endoscopic (ICD-10-PCS; 2022-02-16)
DX: N40.1 Benign prostatic hyperplasia with lower urinary tract symptoms (principal); N18.6 End stage renal disease; I50.22 Chronic systolic (congestive) heart failure; I13.2 Hypertensive heart and chronic kidney disease with heart failure and with stage 5 chronic kidney disease, or end stage renal disease; I48.91 Unspecified atrial fibrillation; D64.9 Anemia, unspecified; F41.9 Anxiety disorder, unspecified; M19.90 Unspecified osteoarthritis, unspecified site; R39.15 Urgency of urination; R35.0 Frequency of micturition; J44.9 Chronic obstructive pulmonary disease, unspecified; F32.A Depression, unspecified; E11.22 Type 2 diabetes mellitus with diabetic chronic kidney disease; M10.9 Gout, unspecified; E78.00 Pure hypercholesterolemia, unspecified; R33.8 Other retention of urine; I25.10 Atherosclerotic heart disease of native coronary artery without angina pectoris; G47.00 Insomnia, unspecified; E03.9 Hypothyroidism, unspecified; D69.6 Thrombocytopenia, unspecified; D63.1 Anemia in chronic kidney disease; K59.00 Constipation, unspecified; R31.0 Gross hematuria; Z96.652 Presence of left artificial knee joint; Z87.891 Personal history of nicotine dependence; Z95.0 Presence of cardiac pacemaker; Z99.81 Dependence on supplemental oxygen; Z99.2 Dependence on renal dialysis
CPT/HCPCS: OP; G0378; G0379; J0690; J1100; J1644; J2370; J2405; J2704; J3010; J7030; J7050; J7121; P9035; Q5105

== ENCOUNTER 2022-06-13 14:45 | Emergency (ER) | payer MEDICARE, MEDICAID ==
[~2022-06-13] VITALS: Ht 177.8 cm; Wt 95.0 kg
[~2022-06-13 14:45] MED LIST changes: +BALANCE OF NATURE PO; +DIPROSONE CR 45GM TP; +TYLENOL 500MG500 MG PO
[2022-06-13 18:04] VITALS: BP 138/64; PULSE 66; TEMP 98.4
== END 2022-06-13 18:05 | disposition home or self-care (01) ==
LOC: COL.ER 14:45
DX: S09.90XA Unspecified injury of head, initial encounter (principal); S01.112A Laceration without foreign body of left eyelid and periocular area, initial encounter; S61.512A Laceration without foreign body of left wrist, initial encounter; I48.91 Unspecified atrial fibrillation; Z86.16 Personal history of COVID-19; Z79.01 Long term (current) use of anticoagulants; Z79.82 Long term (current) use of aspirin; W10.9XXA Fall (on) (from) unspecified stairs and steps, initial encounter; Y92.22 Religious institution as the place of occurrence of the external cause

== ENCOUNTER → 2022-07-01 | Outpatient (CLI) | payer MEDICARE, MEDICAID | LOC: COL.VAS 09:30 | DX: I77.0 Arteriovenous fistula, acquired (principal) ==

== ENCOUNTER 2022-07-27 10:42 | Day surgery (SDC) | payer MEDICARE, MEDICAID ==
[~2022-07-27] VITALS: Ht 180.3 cm; Wt 94.3 kg
[2022-07-27 11:51] LABS: BASO % 0.7 % (0.0-2.0); EOS # 0.1 K/mm3 (0.0-0.7); EOS % 1.5 % (0.0-4.0); GRAN # 3.7 K/mm3 (1.4-6.5); GRAN % 80.4 % (42.2-75.2); LYMPH # 0.4 K/mm3 (1.2-3.4); LYMPH % 7.8 % (20.0-51.0); MEAN CELL VOLUME 99 fl (80.0-100.0); MEAN CORPUSCULAR HGB CONC 32 g/dl (33.0-37.0); MEAN PLATELET VOLUME 10.5 fl (7.4-10.4); MONO # 0.4 K/mm3 (0.1-0.6); MONO % 8.9 % (1.7-9.3); PLATELET COUNT 116 K/mm3 (130-400); REDCELL DISTRIBUTION WIDTH-CV 17.1 % (11.5-14.5)
[2022-07-27 11:56] LABS: CALCIUM 8.7 mg/dL (8.4-10.2); CREATININE, serum 3.32 mg/dL (0.72-1.25); POTASSIUM 3.6 mmol/L (3.5-4.5)
[2022-07-27 12:06] LABS: HEMATOCRIT 30.6 % (42.0-52.0); HEMOGLOBIN 9.8 g/dl (13.5-18.0); MEAN CORPUSCULAR HEMOGLOBIN 32 pg (27-31)
[2022-07-27 12:22] VITALS: BP 115/65; PULSE 61; TEMP 96.5
[2022-07-27] MEDS ORDERED: LANOXIN 0.120.125 MG PO (13:16)
[2022-07-27] MEDS ORDERED: PHOS LO PO (13:17)
[2022-07-27] MEDS ORDERED: NORCO 325 MG-101 TAB PO (13:20)
[2022-07-27 15:50] VITALS: BP 98/68; PULSE 51; TEMP 97.6
[2022-07-27 16:05] VITALS: BP 115/67; PULSE 60
[2022-07-27 16:20] VITALS: BP 125/72; PULSE 70
[2022-07-27 16:35] VITALS: BP 129/73; PULSE 75
--- NOTE | 2022-07-27 17:22 | NUR ---
1550: Patient arrived back into [facility] from OR. Patient is drowsy but arousable. Vital signs stable, on 4L of oxygen. Report received from JOSE EDUARDO Enciso and CINTHYA Grant. Incision is clean, dry and well approximated. Thrill felt Call light left within reach. 1605: Patient resting with eyes closed. Vital signs stable on 2L of oxygen. 1620: Patient vitally stable, on room air. Requesting blueberry muffins and water at this time. States are is feeling sore. 1640: Patient complaining of soreness on operative extremity and back pain. Requesting tylenol, PRN tylenol given per JAN. 1645: Patient got dressed with assistance from RN. Patient got into personal wheelchair. Patient states move helped with back pain. Attempted to print discharge instructions, unable to due to required documentation not filled out. Notified Dr. Nava, orders continued per MD. 1700: IV removed without complications. Went through discharge instructions with patient. Questions answered. Preprinted fistula discharge teaching given to patient. Patient states follow up appointment will not work for him. Attempted to call office but was told to have patient call tomorrow morning to schedule follow up appointment, Patient then given this information and verbalized understanding. Patient then escorted to emergency department entrance via wheelchair[facility]
== END 2022-07-27 17:10 | disposition home or self-care (01) ==
LOC: SDCO 10:42
PROVIDERS: Nurse Anesthetist, Certified Registered; Surgery
DX: E11.22 Type 2 diabetes mellitus with diabetic chronic kidney disease (principal); N18.6 End stage renal disease; Z87.891 Personal history of nicotine dependence
CPT/HCPCS: J1644; J2704; J7030